=== PATIENT | male | born 1955 | race Caucasian/White ===

== ENCOUNTER 2017-02-08 13:33 | Emergency (ER) | payer OTHER ==
[2017-02-08] MEDS ORDERED: Sodium Chloride 0.9% 1000 ML 1,000 ML IV STA ×4 (13:46→16:18)
[2017-02-08] MEDS ORDERED: Sodium Chloride 0.9% 1000 ML 1,000 ML ONE ×4 (13:48→16:19)
--- NOTE | 2017-02-08 13:49 | ERPHSYRPT ---
- History of Present Illness Time Seen by Provider: 02/08/17 13:38 Historian: patient Exam Limitations: no limitations Physician History: FOR ABOUT THE PAST 3 HOURS PT HAS HAD NAUSEA, DULL SHOULDER AND NECK PAIN; FOR THE PAST 15 MINUTES DULL ANTERIOR CHEST PAIN. FOR THE PAST 2 DAYS PT HAS HAD DIARRHEA. PT DENIES SHORTNESS OF AIR, FEVER, ABDOMINAL PAIN. Aspirin Treatment Today: 325 mg x 1, provided at home Allergies/Adverse Reactions: Sulfa (Sulfonamide Antibiotics) [Sulfa(Sulfonamide Antibiotics)] Allergy ( Unknown, Verified 02/08/17 13:54) Home Medications: Aspirin EC 325 mg [Ecotrin 325 MG] 325 mg PO DAILY 12/27/11 [History] Clopidogrel Bisulfate 75 mg [PLAVIX 75 MG Tablet] 75 mg PO DAILY 12/27/11 [ History] Isosorbide Mononitrate 60 mg [Imdur 60MG] 2 tab PO DAILY 12/27/11 [History] Lisinopril 20 mg PO DAILY 12/27/11 [History] Multivitamin [Multivitamins] 1 each PO DAILY 12/27/11 [History] Nitroglycerin 0.4 mg Tablet [Nitrostat 0.4 MG] 0.4 mg SL DAILY PRN PRN [History] [place]-3 Fatty Acids/Fish Oil [Fish Oil 1,000 mg Capsule] 2 tab PO DAILY [History] Ranitidine HCl [zanTAC 150 MG TABLET] 150 mg PO BID 12/27/11 [History] Sucralfate 1 gm [Carafate 1 GM] 1 gm PO BID 12/27/11 [History] Verapamil HCl [Verapamil ER] 120 mg PO HS 12/27/11 [History] Clonazepam [Klonopin] 0.5 mg PO BID 01/11/13 [History] Isosorbide Mononitrate 60 mg [Imdur 60MG] 60 mg PO HS 01/11/13 [History] Omeprazole 20 MG [Prilosec 20 mg] 20 mg PO DAILY 02/08/17 [History] Tamsulosin HCl 0.4 mg [Flomax 0.4 MG] 0.4 mg PO DAILY 02/08/17 [History] Torsemide 20 mg PO DAILY 02/08/17 [History] Ubidecarenone [Co Q-10] 100 mg PO DAILY 02/08/17 [History] Verapamil HCl Sr 240 mg [Isoptin S.r. 240 mg] 240 mg PO DAILY 02/08/17 [ History] Hx Tetanus, Diphtheria Vaccination/Date Given: Yes Hx Influenza Vaccination/Date Given: No Hx Pneumococcal Vaccination/Date Given: No - Review of Systems Constitutional: No Fever Respiratory: No Dyspnea Cardiac: Chest Pain Abdominal/Gastrointestinal: Nausea, Diarrhea, No Abdominal Pain, No Vomiting Musculoskeletal: Neck Pain, Other (BILATERAL SHOULDER PAIN) Neurological: No Headache Endocrine: No Excessive Sweating All Other Systems: Reviewed and Negative - Past Medical History Pertinent Past Medical History: Yes Neurological History: No Pertinent History ENT History: No Pertinent History Cardiac History: Coronary Artery Disease, High Cholesterol, Hypertension, Myocardial Infarction ([place]) Respiratory History: No Pertinent History Endocrine Medical History: No Pertinent History Musculoskeletal History: Osteoarthritis GI Medical History: GERD History: No Pertinent History Psycho-Social History: Depression Male Reproductive Disorders: No Pertinent History Other Medical History: PT. HAD [place] W/ 6 STENTS ~2006. - Past Surgical History Past Surgical History: Yes Neuro Surgical History: No Pertinent History Cardiac: Cardiac Stent Respiratory: No Pertinent History Gastrointestinal: Cholecystectomy Genitourinary: No Pertinent History Musculoskeletal: No Pertinent History Male Surgical History: No Pertinent History - Social History Smoking Status: Former smoker Exposure to second hand smoke: No Drug Use: none Patient Lives Alone: No - Nursing Vital Signs Nursing Vital Signs: Initial Vital Signs Temperature 97.9 F Temperature Source Oral Pulse Rate [] 89 Pulse Rate 75 Respiratory Rate 18 Blood Pressure [] 100/44 Pain Intensity 0 - Physical Exam General Appearance: alert Eye Exam: PERRL/EOMI Ears, Nose, Throat Exam: pharynx normal Neck Exam: normal inspection Respiratory Exam: lungs clear Cardiovascular Exam: normal heart sounds Gastrointestinal/Abdomen Exam: soft, normal bowel sounds Back Exam: normal range of motion Extremity Exam: pedal edema (+1 BILATERALLY) Neurologic Exam: alert, cooperative Skin Exam: warm, dry - Course Nursing assessment & vital signs reviewed: Yes EKG Interpreted by Me: RATE ([id number]), Sinus Rhythm, Left [place] Deviation, LAFB, NORMAL INTERVALS, Right Bundle Branch Block - Radiology Exams Chest X-ray Interpretation: Discussed w/ radiologist (NONACUTE UNDERINFLATED CHEST.) Ordered Tests: Active Orders 24 hr Category Date Time Status Armature Bander STAT Care 02/08/17 13:46 Active EKG-ER Only STAT Care 02/08/17 13:46 Active IV Insertion STAT Care 02/08/17 13:46 Active IV Insertion-2nd Peripheral STAT Care 02/08/17 14:06 Active Oxygen-ED Only NASAL CANNULA 2 lpm Care 02/08/17 13:46 Active Pulse Oximetry (ED) STAT Care 02/08/17 13:46 Active CHEST 1 VIEW (PORTABLE) Stat Exams 02/08/17 13:47 Completed AMYLASE Stat Lab 02/08/17 13:55 Completed CBC W DIFF Stat Lab 02/08/17 13:55 Completed CMP Stat Lab 02/08/17 13:55 Completed LIPASE Stat Lab 02/08/17 13:55 Completed MAGNESIUM Stat Lab 02/08/17 13:55 Completed PROTIME WITH INR Stat Lab 02/08/17 13:55 Completed PTT Stat Lab 02/08/17 13:55 Completed TROPONIN Q3H Lab 02/08/17 13:55 Completed TROPONIN Q3H Lab 02/08/17 17:00 Ordered TROPONIN Q3H Lab 02/08/17 20:00 Ordered TROPONIN Q3H Lab 02/08/17 23:00 Ordered TROPONIN Q3H Lab 02/09/17 02:00 Ordered UA W/RFX UR CULTURE Stat Lab 02/08/17 13:47 Ordered Medication Summary Generic Name Dose Route Start Last Admin Trade Name Freq PRN Reason Stop Dose Admin Sodium Chloride 1,000 mls @ 999 mls/hr 02/08/17 14:08 02/08/17 14:16 Sodium Chloride 0.9% 1000 Ml IV 02/08/17 15:08 999 mls/hr .Q1H1M STA Administration Discontinued Medications Generic Name Dose Route Start Last Admin Trade Name Freq PRN Reason Stop Dose Admin Sodium Chloride 1,000 mls @ 999 mls/hr 02/08/17 13:46 02/08/17 13:52 Sodium Chloride 0.9% 1000 Ml IV 02/08/17 14:46 999 mls/hr .Q1H1M STA Administration Sodium Chloride Confirm 02/08/17 13:48 Sodium Chloride 0.9% 1000 Ml Administered 02/08/17 13:49 Dose 1,000 mls @ ud .ROUTE .STK-MED ONE Sodium Chloride Confirm 02/08/17 14:07 Sodium Chloride 0.9% 1000 Ml Administered 02/08/17 14:08 Dose 1,000 mls @ .[facility] Lab/Rad Data: Laboratory Result Diagrams 02/08/17 13:55 02/08/17 13:55 Laboratory Results 02/08/17 02/08/17 02/08/17 Range/Units 13:55 13:55 13:55 WBC (4.0-10.5) K/mm3 RBC (4.1-5.6) M/mm3 Hgb (12.5-18.0) gm/dl Hct (42-50) % MCV (78-100) fl MCH (26-32) pg MCHC (32-36) g/dl RDW (11.5-14.0) % Plt Count (150-450) K/mm3 MPV (6-9.5) fl Gran % (36.0-66.0) % Lymphocytes % (24.0-44.0) % Monocytes % (0.0-12.0) % Eosinophils % (0.00-5.0) % Basophils % (0.0-0.4) % Basophils # (0-0.4) INR 1.11 (0.8-3.0) APTT 29.8 (24.1-36.1) SECONDS Sodium 140 (136-145) mEq/L Potassium 4.4 (3.5-5.1) mEq/L Chloride 105 (98-107) mEq/L Carbon Dioxide 26.9 (21-32) mEq/L Anion Gap 12.3 (5-15) MEQ/L BUN 15 (9-20) mg/dL Creatinine 1.77 H (0.55-1.30) mg/dl Estimated GFR 42 ML/MIN Glucose 119 H (70-110) MG/DL Calcium 11.1 H (8.5-10.1) mg/dL Magnesium 1.9 (1.8-2.4) mg/dL Total Bilirubin 0.40 (0.2-1.0) mg/dL AST 32 (15-37) U/L ALT 68 (12-78) U/L Alkaline Phosphatase 125 H (46-116) U/L Troponin I < 0.017 (0.000-0.056) ng/ml Serum Total Protein 7.0 (6.4-8.2) gm/dL Albumin 3.5 (3.4-5.0) g/dL Amylase 37 (25-115) U/L Lipase 105 (73-393) U/L 02/08/17 Range/Units 13:55 WBC 11.2 H (4.0-10.5) K/mm3 RBC 5.78 H (4.1-5.6) M/mm3 Hgb 17.4 (12.5-18.0) gm/dl Hct 50.9 H (42-50) % MCV 88.1 (78-100) fl MCH 30.1 (26-32) pg MCHC 34.2 (32-36) g/dl RDW 14.0 (11.5-14.0) % Plt Count 229 (150-450) K/mm3 MPV 10.4 H (6-9.5) fl Gran % 77.9 H (36.0-66.0) % Lymphocytes % 12.0 L (24.0-44.0) % Monocytes % 7.7 (0.0-12.0) % Eosinophils % 2.0 (0.00-5.0) % Basophils % 0.4 (0.0-0.4) % Basophils # 0.04 (0-0.4) INR (0.8-3.0) APTT (24.1-36.1) SECONDS Sodium (136-145) mEq/L Potassium (3.5-5.1) mEq/L Chloride (98-107) mEq/L Carbon Dioxide (21-32) mEq/L Anion Gap (5-15) MEQ/L BUN (9-20) mg/dL Creatinine (0.55-1.30) mg/dl Estimated GFR ML/MIN Glucose (70-110) MG/DL Calcium (8.5-10.1) mg/dL Magnesium (1.8-2.4) mg/dL Total Bilirubin (0.2-1.0) mg/dL AST (15-37) U/L ALT (12-78) U/L Alkaline Phosphatase (46-116) U/L Troponin I (0.000-0.056) ng/ml Serum Total Protein (6.4-8.2) gm/dL Albumin (3.4-5.0) g/dL Amylase (25-115) U/L Lipase (73-393) U/L - Progress Discussed with : Other (SPOKE WITH DR ARROYO(COVERING SOCIAL SECURITY BENEFITS INTERVIEWER FOR DR RIVERA)([id number]) WHO ACCEPTED PT FOR TRANSFER TO [facility] A DIRECT ADMISSION.) - Departure Time of Disposition: 15:00 Departure Disposition: Transfer ([facility]) Clinical Impression: CHEST PAIN, HTN, CAD, ARTHRITIS, GERD, DEPRESSION Condition: Stable Critical Care Time: No Referrals: ALIREZA MCKEON [Primary Care Provider] -
[2017-02-08 14:04] LABS: BASOPHIL % 0.4 % (0.0-0.4); Granulocytes % 77.9 % (36.0-66.0); Mean Cell Volume 88.1 fl (78-100); Mean Corpuscular Hemoglobin 30.1 pg (26-32); Mean Platelet Volume 10.4 fl (6-9.5); Monocytes % 7.7 % (0.0-12.0); Platelet Count 229 K/mm3 (150-450); Red Blood Count 5.78 M/mm3 (4.1-5.6); White Blood Count 11.2 K/mm3 (4.0-10.5)
[2017-02-08 14:15] LABS: INR 1.11 (0.8-3.0); PROTIME 12.5 SECONDS (8.83-12.87)
[2017-02-08 14:17] LABS: PTT 29.8 SECONDS (24.1-36.1)
[2017-02-08 14:21] LABS: ALBUMIN 3.5 g/dL (3.4-5.0); ANION GAP 12.3 MEQ/L (5-15); BILIRUBIN,TOTAL 0.4 mg/dL (0.2-1.0); Carbon Dioxide 26.9 mEq/L (21-32); MAGNESIUM 1.9 mg/dL (1.8-2.4); Potassium 4.4 mEq/L (3.5-5.1)
--- NOTE | 2017-02-08 14:32 | XRAY ---
Indication: Pain. Comparison: January 11, 2013. Portable apical lordotic chest less inflated today again without focal infiltrate, consolidation, or large effusion. Again scattered calcific granulomas. Heart is not enlarged for AP portable projection. Bony thorax intact. Impression: Nonacute underinflated chest.
[2017-02-08 16:33] VITALS: BP 115/51; PULSE 70; O2SAT 98
== END 2017-02-08 17:03 | disposition short-term general hospital (02) ==
LOC: ED 13:33
DX: R07.9 Chest pain, unspecified (principal); I10 Essential (primary) hypertension; I25.10 Atherosclerotic heart disease of native coronary artery without angina pectoris; M19.90 Unspecified osteoarthritis, unspecified site; K21.9 Gastro-esophageal reflux disease without esophagitis; F32.9 Major depressive disorder, single episode, unspecified; I25.2 Old myocardial infarction
CPT/HCPCS: 36000; 36415; 71010; 80053; 82150; 83690; 83735; 84484; 85025; 85610; 85730; 93005; 93041; 96360; 96361; 96365; 99291

== ENCOUNTER 2017-06-02 12:31 | Emergency (ER) | payer OTHER ==
[2017-06-02] MEDS ORDERED: BABY ASPIRIN 81 MG CHEW PO ONE (13:00)
[2017-06-02] MEDS ORDERED: Sodium Chloride 0.9% 1000 ML 1,000 ML IV SCH (13:00)
[2017-06-02] MEDS ORDERED: NITRO-BID 2% UD PACKETS TOP ONE (13:00)
[2017-06-02] MEDS ORDERED: BABY ASPIRIN 81 MG CHEW ONE (13:01)
[2017-06-02] MEDS ORDERED: NITRO-BID 2% UD PACKETS ONE (13:01)
[2017-06-02 13:05] LABS: BASOPHIL % 0.4 % (0.0-0.4); Eosinophil % 5.2 % (0.00-5.0); Granulocytes % 68.5 % (36.0-66.0); Lymphocytes % 15.4 % (24.0-44.0); Mean Cell Volume 87.7 fl (78-100); Mean Corpuscular Hemoglobin 29.4 pg (26-32); Mean Platelet Volume 10.1 fl (6-9.5); Monocytes % 10.5 % (0.0-12.0); Platelet Count 197 K/mm3 (150-450); Red Blood Count 5.51 M/mm3 (4.1-5.6); Red Cell Distribution Width 13.8 % (11.5-14.0); White Blood Count 8.4 K/mm3 (4.0-10.5)
[2017-06-02] MEDS ORDERED: Sodium Chloride 0.9% 1000 ML 1,000 ML ONE (13:05)
--- NOTE | 2017-06-02 13:07 | ERPHSYRPT ---
- History of Present Illness Time Seen by Provider: 06/02/17 12:35 Historian: patient, family Patient Subjective Stated Complaint: pt here for pain to center of chest since 0900 today with some lightheaded that is now gone, pt has long hx of heart disease Triage Nursing Assessment: pt laert, resp easy, chest clear. skin w/d, edema to lower legs that is normal for her, Physician History: CC: chest pain Hx: 62 y/o patient of Dr Mckeon and [facility] cardiology. He had prior coronary stenting. He was shopping at the [employer] around 9AM and felt dizzy, which has been happening of late. He then began to have chest pain, pressure in anterior chest. Went home. Took one NTG without relief. Came to ER. Not particularly short of breath but has some swelling. No N/V. Not sweating. Takes asa at night. Pain and discomfort moderate. Nitro Today/Relief: 0.4 mg x 1, provided at home, no relief Aspirin Treatment Today: no aspirin today Allergies/Adverse Reactions: Sulfa (Sulfonamide Antibiotics) [Sulfa(Sulfonamide Antibiotics)] Allergy ( Unknown, Verified 06/02/17 12:42) Home Medications: Aspirin EC 325 mg [Ecotrin 325 MG] 325 mg PO DAILY 12/27/11 [History] Clopidogrel Bisulfate 75 mg [PLAVIX 75 MG Tablet] 75 mg PO DAILY 12/27/11 [ History] Isosorbide Mononitrate 60 mg [Imdur 60MG] 2 tab PO DAILY 12/27/11 [History] Lisinopril 20 mg PO DAILY 12/27/11 [History] Nitroglycerin 0.4 mg Tablet [Nitrostat 0.4 MG] 0.4 mg SL DAILY PRN PRN [History] [place]-3 Fatty Acids/Fish Oil [Fish Oil 1,000 mg Capsule] 2 tab PO DAILY [History] Sucralfate 1 gm [Carafate 1 GM] 1 gm PO BID 12/27/11 [History] Verapamil HCl [Verapamil ER] 120 mg PO HS 12/27/11 [History] Clonazepam [Klonopin] 0.5 mg PO BID 01/11/13 [History] Isosorbide Mononitrate 60 mg [Imdur 60MG] 60 mg PO HS 01/11/13 [History] Omeprazole 20 MG [Prilosec 20 mg] 20 mg PO DAILY 02/08/17 [History] Tamsulosin HCl 0.4 mg [Flomax 0.4 MG] 0.4 mg PO DAILY 02/08/17 [History] Torsemide 20 mg PO DAILY 02/08/17 [History] Ubidecarenone [Co Q-10] 100 mg PO DAILY 02/08/17 [History] Verapamil HCl Sr 240 mg [Isoptin S.r. 240 mg] 240 mg PO DAILY 02/08/17 [ History] Multivit,Tx with Iron,Minerals [Complete Multivitamin] 1 ea DAILY 06/02/17 [ History] Ranitidine HCl [Zantac] 150 mg BID 06/02/17 [History] Ropinirole HCl [Requip] 1 mg DAILY 06/02/17 [History] Sucralfate 1 gm [Carafate 1 GM] 1 g BID 06/02/17 [History] Hx Tetanus, Diphtheria Vaccination/Date Given: Yes Hx Influenza Vaccination/Date Given: No Hx Pneumococcal Vaccination/Date Given: No Immunizations Up to Date: Yes - Review of Systems Constitutional: Malaise, Weakness, No Fever, No Chills Eyes: No Symptoms Ears, Nose, & Throat: No Symptoms Respiratory: No Cough, No Dyspnea Cardiac: Chest Pain, Edema, No Syncope Abdominal/Gastrointestinal: No Abdominal Pain, No Nausea, No Vomiting Musculoskeletal: No Back Pain, No Neck Pain Skin: No Rash Neurological: No Headache All Other Systems: Reviewed and Negative - Past Medical History Pertinent Past Medical History: Yes Neurological History: No Pertinent History ENT History: No Pertinent History Cardiac History: Coronary Artery Disease, High Cholesterol, Hypertension, Myocardial Infarction ([place]) Respiratory History: No Pertinent History Endocrine Medical History: No Pertinent History Musculoskeletal History: Osteoarthritis GI Medical History: GERD History: No Pertinent History Psycho-Social History: Depression Male Reproductive Disorders: No Pertinent History Other Medical History: PT. HAD [place] W/ 6 STENTS ~2006. - Past Surgical History Past Surgical History: Yes Neuro Surgical History: No Pertinent History Cardiac: Cardiac Stent Respiratory: No Pertinent History Gastrointestinal: Cholecystectomy Genitourinary: No Pertinent History Musculoskeletal: No Pertinent History Male Surgical History: No Pertinent History - Social History Smoking Status: Former smoker Exposure to second hand smoke: No Drug Use: none Patient Lives Alone: No - Nursing Vital Signs Nursing Vital Signs: Initial Vital Signs Temperature 98.0 F 06/02/17 12:36 Pulse Rate 66 06/02/17 12:36 Respiratory Rate 20 06/02/17 12:36 Blood Pressure 124/65 06/02/17 12:36 O2 Sat by Pulse Oximetry 97 06/02/17 12:36 Pain Scale Pain Intensity 2 - Physical Exam General Appearance: alert, obese, other (pleasant man) Eye Exam: PERRL/EOMI Ears, Nose, Throat Exam: normal ENT inspection, moist mucous membranes Neck Exam: normal inspection, non-tender, supple Respiratory Exam: normal breath sounds Cardiovascular Exam: regular rate/rhythm, edema (trace legs bilateral) Gastrointestinal/Abdomen Exam: soft, No tenderness, No distention Extremity Exam: No calf tenderness Neurologic Exam: alert, 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, cooperative, services rep II-XII nml as tested, sensation nml, No motor deficits Skin Exam: warm, dry, No rash SpO2 Interpretation: normal SpO2: 97 Oxygen Delivery: Room Air - Course Nursing assessment & vital signs reviewed: Yes EKG Interpreted by Me: RATE (70), Sinus Rhythm, NORMAL AXIS, Right Bundle Branch Block (stable from prior) - Radiology Exams cxr X-ray Interpretation: Teleradiologist Report, Negative Ordered Tests: Active Orders 24 hr Category Date Time Status It Risk And Assurance Senior Manager STAT Care 06/02/17 12:56 Active EKG-ER Only STAT Care 06/02/17 12:56 Active IV Insertion STAT Care 06/02/17 12:56 Active Pulse Oximetry (ED) STAT Care 06/02/17 12:56 Active CHEST 1 VIEW (PORTABLE) Stat Exams 06/02/17 12:56 Completed CBC W DIFF Stat Lab 06/02/17 13:01 Completed CMP Stat Lab 06/02/17 13:01 Completed NT PRO BNP Stat Lab 06/02/17 13:01 Completed TROPONIN Q3H Lab 06/02/17 13:01 Completed TROPONIN Q3H Lab 06/02/17 16:00 Ordered TROPONIN Q3H Lab 06/02/17 19:00 Ordered TROPONIN Q3H Lab 06/02/17 22:00 Ordered TROPONIN Q3H Lab 06/03/17 01:00 Ordered Medication Summary Generic Name Dose Route Start Last Admin Trade Name Jesse PRN Reason Stop Dose Admin Sodium Chloride 1,000 mls @ 20 mls/hr 06/02/17 13:00 06/02/17 13:04 Sodium Chloride 0.9% 1000 Ml IV 07/02/17 12:59 20 mls/hr .Q24H ALLYSSA Administration Discontinued Medications Generic Name Dose Route Start Last Admin Trade Name Jesse PRN Reason Stop Dose Admin Aspirin 162 mg 06/02/17 13:00 06/02/17 13:04 Baby Aspirin 81 Mg Chew PO 06/02/17 13:01 81 mg STAT ONE Administration Aspirin Confirm 06/02/17 13:01 Baby Aspirin 81 Mg Chew Administered 06/02/17 13:02 Dose 162 mg .ROUTE .STK-MED ONE Nitroglycerin 1 gm 06/02/17 13:00 06/02/17 13:04 Nitro-Bid 2% Ud Packets TOP 06/02/17 13:01 1 gm STAT ONE Administration Nitroglycerin Confirm 06/02/17 13:01 Nitro-Bid 2% Ud Packets Administered 06/02/17 13:02 Dose 1 gm .ROUTE .STK-MED ONE Lab/Rad Data: Laboratory Result Diagrams 06/02/17 13:01 06/02/17 13:01 Laboratory Results 06/02/17 06/02/17 06/02/17 Range/Units 13:01 13:01 13:01 WBC 8.4 (4.0-10.5) K/mm3 RBC 5.51 (4.1-5.6) M/mm3 Hgb 16.2 (12.5-18.0) gm/dl Hct 48.3 (42-50) % MCV 87.7 (78-100) fl MCH 29.4 (26-32) pg MCHC 33.5 (32-36) g/dl RDW 13.8 (11.5-14.0) % Plt Count 197 (150-450) K/mm3 MPV 10.1 H (6-9.5) fl Gran % 68.5 H (36.0-66.0) % Lymphocytes % 15.4 L (24.0-44.0) % Monocytes % 10.5 (0.0-12.0) % Eosinophils % 5.2 H (0.00-5.0) % Basophils % 0.4 (0.0-0.4) % Basophils # 0.03 (0-0.4) Sodium 137 (136-145) mEq/L Potassium 3.9 (3.5-5.1) mEq/L Chloride 100 (98-107) mEq/L Carbon Dioxide 26.6 (21-32) mEq/L Anion Gap 14.0 (5-15) MEQ/L BUN 23 H (9-20) mg/dL Creatinine 1.01 (0.55-1.30) mg/dl Estimated GFR > 60 ML/MIN Glucose 100 (70-110) MG/DL Calcium 10.5 H (8.5-10.1) mg/dL Total Bilirubin 0.50 (0.2-1.0) mg/dL AST 28 (15-37) U/L ALT 54 (12-78) U/L Alkaline Phosphatase 110 (46-116) U/L Troponin I < 0.017 (0.000-0.056) ng/ml NT-Pro-B Natriuret Pep 40 (0-125) pg/ml Serum Total Protein 6.9 (6.4-8.2) gm/dL Albumin 3.7 (3.4-5.0) g/dL - Progress Progress Note: 06/02/17 14:06 Pain some better with NTG paste. EKS stable. Troponin neg. Pt and request call [facility] cardiology as they see Dr Rocha. Called one call and spoke to [place] [facility] [place]/family regarding: lab results, diagnosis, need for follow-up, rad results - Departure Time of Disposition: 14:07 Departure Disposition: Transfer Clinical Impression: Chest pain, rule out acute myocardial infarction Condition: Stable Critical Care Time: No Referrals: ALIREZA MCKEON [Primary Care Provider] -
--- NOTE | 2017-06-02 13:12 | XRAY ---
Indication: Chest pain. Comparison: February 08, 2017. Portable apical lordotic chest remains clear again with incidental calcified granulomas. Heart is not enlarged for AP portable technique. Bony thorax intact. Impression: Stable nonacute chest.
[2017-06-02 13:39] LABS: ALBUMIN 3.7 g/dL (3.4-5.0); ALKALINE PHOSPHATASE 110 U/L (46-116); BLOOD UREA NITROGEN 23 mg/dL (9-20); CHLORIDE 100 mEq/L (98-107); Carbon Dioxide 26.6 mEq/L (21-32); Glucose 100 MG/DL (70-110); Potassium 3.9 mEq/L (3.5-5.1); SGOT/AST 28 U/L (15-37); SGPT/ALT 54 U/L (12-78); SODIUM 137 mEq/L (136-145); Total Protein 6.9 gm/dL (6.4-8.2)
[2017-06-02 14:04] VITALS: PULSE 62
[2017-06-02 15:25] VITALS: BP 97/48; O2SAT 94
== END 2017-06-02 16:05 | disposition short-term general hospital (02) ==
LOC: ED 12:31
DX: R07.89 Other chest pain (principal); R42 Dizziness and giddiness; Z98.61 Coronary angioplasty status; Z79.899 Other long term (current) drug therapy; I25.10 Atherosclerotic heart disease of native coronary artery without angina pectoris; E78.00 Pure hypercholesterolemia, unspecified
CPT/HCPCS: 36000; 36415; 71010; 80053; 83880; 84484; 85025; 93005; 93041; 99285; A9270-GY

== ENCOUNTER 2018-12-04 15:15 | Emergency (ER) | payer BC ==
--- NOTE | 2018-12-04 15:17 | ERPHSYRPT ---
- History of Present Illness Time Seen by Provider: 12/04/18 15:17 Source: patient, family Exam Limitations: no limitations Physician History: 63 y/o morbidly obese diabetic white male with h/o htn, mi and cadz with [address] on plavix, presents with stroke like sx of greater than 3.5 hours duration when he presented to dr. corey office who then sent pt to us. pt states he could not move his right upper ext at all but since sx began he can now move it but it is weak and numb. noticed pts right leg dragging mildly. Timing/Duration: today, hour(s) (4 hours) Severity: moderate Character of Deficits: new weakness, RLE, RUE Deficits: decrease ability to walk Baseline/Normal Cognition: alert 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 Current Cognition: alert 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 Baseline Gait: walks w/o assistance Associated Symptoms: other (right upper ext and right lower ext weakness) Allergies/Adverse Reactions: Sulfa (Sulfonamide Antibiotics) [Sulfa(Sulfonamide Antibiotics)] Allergy ( Unknown, Verified 12/04/18 15:27) Home Medications: Aspirin EC 325 mg [Ecotrin 325 MG] 325 mg PO DAILY 12/27/11 [History] Clopidogrel Bisulfate 75 mg [PLAVIX 75 MG Tablet] 75 mg PO DAILY 12/27/11 [ History] Isosorbide Mononitrate 60 mg [Imdur 60MG] 2 tab PO DAILY 12/27/11 [History] Lisinopril 20 mg PO DAILY 12/27/11 [History] Nitroglycerin 0.4 mg Tablet [Nitrostat 0.4 MG] 0.4 mg SL DAILY PRN PRN [History] [place]-3 Fatty Acids/Fish Oil [Fish Oil 1,000 mg Capsule] 2 tab PO DAILY [History] Sucralfate 1 gm [Carafate 1 GM] 1 gm PO BID 12/27/11 [History] Verapamil HCl [Verapamil ER] 120 mg PO HS 12/27/11 [History] Clonazepam [Klonopin] 0.5 mg PO BID 01/11/13 [History] Isosorbide Mononitrate 60 mg [Imdur 60MG] 60 mg PO HS 01/11/13 [History] Omeprazole 20 MG [Prilosec 20 mg] 20 mg PO DAILY 02/08/17 [History] Tamsulosin HCl 0.4 mg [Flomax 0.4 MG] 0.4 mg PO DAILY 02/08/17 [History] Torsemide 20 mg PO DAILY 02/08/17 [History] Ubidecarenone [Co Q-10] 100 mg PO DAILY 02/08/17 [History] Verapamil HCl Sr 240 mg [Isoptin S.r. 240 mg] 240 mg PO DAILY 02/08/17 [ History] Multivit,Tx with Iron,Minerals [Complete Multivitamin] 1 ea DAILY 06/02/17 [ History] Ranitidine HCl [Zantac] 150 mg BID 06/02/17 [History] Ropinirole HCl [Requip] 1 mg DAILY 06/02/17 [History] Sucralfate 1 gm [Carafate 1 GM] 1 g BID 06/02/17 [History] Hx Tetanus, Diphtheria Vaccination/Date Given: Yes Hx Influenza Vaccination/Date Given: No Hx Pneumococcal Vaccination/Date Given: No - Review of Systems Constitutional: No Symptoms Eyes: No Symptoms Ears, Nose, & Throat: No Symptoms Respiratory: No Symptoms Cardiac: No Symptoms Abdominal/Gastrointestinal: No Symptoms Genitourinary Symptoms: No Symptoms Musculoskeletal: No Symptoms Skin: No Symptoms Neurological: Gait Changes (mild dragging of right foot), Other (moving all ext. right upper and right lower ext weakness) Psychological: No Symptoms Endocrine: No Symptoms Hematologic/Lymphatic: No Symptoms Immunological/Allergic: No Symptoms All Other Systems: Reviewed and Negative - Past Medical History Pertinent Past Medical History: Yes Neurological History: No Pertinent History ENT History: No Pertinent History Cardiac History: Angina, Hypertension, Myocardial Infarction ([place]) Respiratory History: COPD Endocrine Medical History: Other Musculoskeletal History: Osteoarthritis GI Medical History: GERD History: No Pertinent History Psycho-Social History: Depression Male Reproductive Disorders: No Pertinent History Other Medical History: HEART HX W/ 6 STENTS; [place] 12 YEARS AGO - Past Surgical History Past Surgical History: Yes Neuro Surgical History: No Pertinent History Cardiac: Cardiac Stent Respiratory: No Pertinent History Gastrointestinal: Cholecystectomy Genitourinary: No Pertinent History Musculoskeletal: No Pertinent History Male Surgical History: No Pertinent History - Social History Smoking Status: Former smoker Exposure to second hand smoke: No Drug Use: none Patient Lives Alone: No - Nursing Vital Signs Nursing Vital Signs: Initial Vital Signs Temperature 98.2 F 12/04/18 15:46 Pulse Rate 77 12/04/18 15:46 Respiratory Rate 18 12/04/18 15:46 Blood Pressure 102/67 12/04/18 15:46 O2 Sat by Pulse Oximetry 94 L 12/04/18 15:46 Pain Scale Pain Intensity 6 - Prakash Coma Scale Best Eye Response (Prakash): (4) open spontaneously Best Verbal Response ([place]): (5) oriented Best Motor Response ([place]): (6) obeys commands [place] Total: 15 - Physical Exam General Appearance: no apparent distress, alert Eye Exam: bilateral eye: normal inspection, PERRL, EOMI Ears, Nose, Throat Exam: normal ENT inspection, moist mucous membranes Neck Exam: normal inspection, non-tender, supple, full range of motion Respiratory: normal breath sounds, lungs clear, airway intact, No chest tenderness, No respiratory distress Cardiovascular: regular rate/rhythm, normal heart sounds, normal peripheral pulses Gastrointestinal: soft, normal bowel sounds, No tenderness, No guarding Rectal Exam: not done Back Exam: normal inspection, normal range of motion, No CVA tenderness, No vertebral tenderness Extremity Exam: normal inspection, parasthesia (right upper ext) 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, 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, 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 Exam: normal hearing, normal speech, PERRL, tongue midline, No facial asymmetry, No facial droop, No facial paresthesias, No facial weakness Coordination/Gait: No normal finger to nose (right upper ext slow and inaccurate ) Motor/Sensory: weak motor strength RUE, weak motor strength RLE Skin Exam: normal color, warm, dry SpO2 Interpretation: normal O2 Delivery: Room Air - Course Nursing assessment & vital signs reviewed: Yes EKG Interpreted by Me: RATE (71), Sinus Rhythm, Right Bundle Branch Block, Other (Q1/S111 pattern; prolonged qrs; left ant fascicular block; unchanged from comparison ekg 06/02/17) Ordered Tests: Active Orders 24 hr Category Date Time Status Zone Maintenance Technician STAT Care 12/04/18 15:19 Active EKG-ER Only STAT Care 12/04/18 15:17 Active IV Insertion STAT Care 12/04/18 15:17 Active HEAD WITHOUT CONTRAST [CT] Stat Exams 12/04/18 15:33 Completed CBC W DIFF Stat Lab 12/04/18 15:25 Completed CMP Stat Lab 12/04/18 15:25 Completed PROTIME WITH INR Stat Lab 12/04/18 15:25 Completed Lab/Rad Data: Laboratory Result Diagrams 12/04/18 15:25 12/04/18 15:25 Laboratory Results 12/04/18 12/04/18 12/04/18 Range/Units 15: 15: 15:25 WBC 9.1 (4.0-10.5) K/mm3 RBC 5.36 (4.1-5.6) M/mm3 Hgb 15.5 (12.5-18.0) gm/dl Hct 46.9 (42-50) % MCV 87.5 (78-100) fl MCH 28.9 (26-32) pg MCHC 33.0 (32-36) g/dl RDW 14.7 H (11.5-14.0) % Plt Count 233 (150-450) K/mm3 MPV 10.0 H (6-9.5) fl Gran % 70.3 H (36.0-66.0) % Eos # (Auto) 0.30 (0-0.5) Absolute Lymphs (auto) 1.59 (1.0-4.6) Absolute Monos (auto) 0.74 (0.0-1.3) Lymphocytes % 17.6 L (24.0-44.0) % Monocytes % 8.2 (0.0-12.0) % Eosinophils % 3.3 (0.00-5.0) % Basophils % 0.6 (0.0-0.4) % Absolute Granulocytes 6.37 (1.4-6.9) Basophils # 0.05 (0-0.4) PT 12.8 (8.83-12.87) SECONDS INR 1.10 (0.8-3.0) Sodium 141 (137-145) mmol/L Potassium 4.2 (3.5-5.1) mmol/L Chloride 106 (98-107) mmol/L Carbon Dioxide 27 (22-30) mmol/L Anion Gap 11.2 (5-15) MEQ/L BUN 21 H (9-20) mg/dL Creatinine 1.21 (0.66-1.25) mg/dL Estimated GFR > 60.0 ML/MIN Glucose 96 (74-106) mg/dL Calcium 9.8 (8.4-10.2) mg/dL Total Bilirubin 0.40 (0.2-1.3) mg/dL AST 24 (17-59) U/L ALT 36 (0-50) U/L Alkaline Phosphatase 94 (38-126) U/L Serum Total Protein 7.4 (6.3-8.2) g/dL Albumin 4.0 (3.5-5.0) g/dL - Progress Progress: improved, re-examined Progress Note: 12/04/18 17:23 pts neuro exam has improved during stay here. his sx still persist. spoke with dr. Siddiqui, neurologist at [address] accepts pt in transfer. pt is to go to ED then for CTA head there. Counseled pt/family regarding: lab results, diagnosis, need for follow-up, rad results - Departure Departure Disposition: Transfer Clinical Impression: TIA (transient ischemic attack) Condition: Stable Critical Care Time: Yes Critical Care Time(excluding separately billable procedures): 30-74 minutes Referrals: ALIREZA MCKEON [Primary Care Provider] -
[2018-12-04 15:31] LABS: BASOPHIL % 0.6 % (0.0-0.4); Basophil (Absolute #) 0.05 (0-0.4); Eosinophil % 3.3 % (0.00-5.0); Granulocyte Absolute (ANC) 6.37 (1.4-6.9); Granulocytes % 70.3 % (36.0-66.0); Hematocrit 46.9 % (42-50); Hemoglobin 15.5 gm/dl (12.5-18.0); Lymphocyte (Absolute #) 1.59 (1.0-4.6); Lymphocytes % 17.6 % (24.0-44.0); Mean Cell Volume 87.5 fl (78-100); Mean Corpuscular Hemoglobin 28.9 pg (26-32); Monocyte (Absolute #) 0.74 (0.0-1.3); Monocytes % 8.2 % (0.0-12.0); Platelet Count 233 K/mm3 (150-450); Red Blood Count 5.36 M/mm3 (4.1-5.6); Red Cell Distribution Width 14.7 % (11.5-14.0); White Blood Count 9.1 K/mm3 (4.0-10.5)
[2018-12-04 15:38] LABS: INR 1.1 (0.8-3.0); PROTIME 12.8 SECONDS (8.83-12.87)
[2018-12-04 15:43] LABS: ALKALINE PHOSPHATASE 94 U/L (38-126); ANION GAP 11.2 MEQ/L (5-15); BLOOD UREA NITROGEN 21 mg/dL (9-20); CHLORIDE 106 mmol/L (98-107); Calcium 9.8 mg/dL (8.4-10.2); Carbon Dioxide 27 mmol/L (22-30); Creatinine 1 1.21 mg/dL (0.66-1.25); Glucose 96 mg/dL (74-106); Potassium 4.2 mmol/L (3.5-5.1); SGOT/AST 24 U/L (17-59); SGPT/ALT 36 U/L (0-50); SODIUM 141 mmol/L (137-145); Total Protein 7.4 g/dL (6.3-8.2)
--- NOTE | 2018-12-04 16:04 | XRAY ---
Indication: Unable to move right arm. Possible stroke. Multiple contiguous axial images obtained through the head without contrast. Comparison: November 18, 2015. Stable age-appropriate global atrophy and mild periventricular degenerative micro-ischemia bilaterally. No acute intracranial hemorrhage, abnormal extra-axial fluid collection, or mass effect. Fourth ventricle is midline without hydrocephalus. Bony calvarium intact. Visualized paranasal sinuses and mastoid air cells are clear. Impression: Stable nonacute senile brain. Follow-up CT or MRI may yield further information if there remains further clinical concern. CTDI 67.22
[2018-12-04] MEDS ORDERED: Sodium Chloride 0.9% 1000 ML 1,000 ML IV SCH (17:30)
[2018-12-04] MEDS ORDERED: Sodium Chloride 0.9% 1000 ML 1,000 ML ONE (17:34)
[2018-12-04 17:44] VITALS: O2SAT 97
[2018-12-04 18:36] VITALS: BP 102/67; PULSE 72
== END 2018-12-04 18:36 | disposition short-term general hospital (02) ==
LOC: ED 15:15
DX: G45.9 Transient cerebral ischemic attack, unspecified (principal); I10 Essential (primary) hypertension; R53.1 Weakness; J44.9 Chronic obstructive pulmonary disease, unspecified; K21.9 Gastro-esophageal reflux disease without esophagitis; F32.9 Major depressive disorder, single episode, unspecified; Z79.899 Other long term (current) drug therapy; I25.2 Old myocardial infarction
CPT/HCPCS: 36000; 36415; 70450; 80053; 85025; 85610; 93005; 93041; 96360; 99285; 99291

== ENCOUNTER 2018-12-09 13:52 | Emergency (ER) | payer BC ==
--- NOTE | 2018-12-09 14:04 | ERPHSYRPT ---
- History of Present Illness Time Seen by Provider: 12/09/18 14:01 Source: patient, family Exam Limitations: no limitations Physician History: 63 y/o right handed white male, recently dx with a stroke, presents with right hand pain and swelling. pt seen in this ED on 12/04/18 by me. he was discharged to home from last pm. i recall pt had right hand swelling on the prior visit on 12/04/18. does not specifically recall an injury. Occurred: this morning Method of Injury: unknown Quality: sharpness, stabbing Severity of Pain-Max: mild Severity of Pain-Current: mild Extremities Pain Location: hand: right Modifying Factors: Improves With: movement Associated Symptoms: none Allergies/Adverse Reactions: Sulfa (Sulfonamide Antibiotics) [Sulfa(Sulfonamide Antibiotics)] Allergy ( Unknown, Verified 12/04/18 15:27) Home Medications: Aspirin EC 325 mg [Ecotrin 325 MG] 81 mg PO DAILY 12/27/11 [History] Clopidogrel Bisulfate 75 mg [PLAVIX 75 MG Tablet] 75 mg PO DAILY 12/27/11 [ History] Isosorbide Mononitrate 60 mg [Imdur 60MG] 2 tab PO DAILY 12/27/11 [History] Lisinopril 20 mg PO DAILY 12/27/11 [History] Nitroglycerin 0.4 mg Tablet [Nitrostat 0.4 MG] 0.4 mg SL DAILY PRN PRN [History] [place]-3 Fatty Acids/Fish Oil [Fish Oil 1,000 mg Capsule] 2 tab PO DAILY [History] Sucralfate 1 gm [Carafate 1 GM] 1 gm PO BID 12/27/11 [History] Verapamil HCl [Verapamil ER] 120 mg PO HS 12/27/11 [History] Clonazepam [Klonopin] 0.5 mg PO BID 01/11/13 [History] Isosorbide Mononitrate 60 mg [Imdur 60MG] 60 mg PO HS 01/11/13 [History] Omeprazole 20 MG [Prilosec 20 mg] 20 mg PO DAILY 02/08/17 [History] Tamsulosin HCl 0.4 mg [Flomax 0.4 MG] 0.4 mg PO DAILY 02/08/17 [History] Ubidecarenone [Co Q-10] 100 mg PO DAILY 02/08/17 [History] Verapamil HCl Sr 240 mg [Isoptin S.r. 240 mg] 240 mg PO DAILY 02/08/17 [ History] Multivit,Tx with Iron,Minerals [Complete Multivitamin] 1 ea DAILY 06/02/17 [ History] Ranitidine HCl [Zantac] 150 mg BID 06/02/17 [History] Ropinirole HCl [Requip] 1 mg DAILY 06/02/17 [History] Sucralfate 1 gm [Carafate 1 GM] 1 g BID 06/02/17 [History] Hx Tetanus, Diphtheria Vaccination/Date Given: Yes Hx Influenza Vaccination/Date Given: No Hx Pneumococcal Vaccination/Date Given: No - Review of Systems Constitutional: No Symptoms Eyes: No Symptoms Ears, Nose, & Throat: No Symptoms Respiratory: No Symptoms Cardiac: No Symptoms Abdominal/Gastrointestinal: No Symptoms Genitourinary Symptoms: No Symptoms Musculoskeletal: Other (right hand pain) Skin: No Symptoms Neurological: No Symptoms Psychological: No Symptoms Endocrine: No Symptoms Hematologic/Lymphatic: No Symptoms Immunological/Allergic: No Symptoms All Other Systems: Reviewed and Negative - Past Medical History Pertinent Past Medical History: Yes Neurological History: No Pertinent History ENT History: No Pertinent History Cardiac History: Angina, Hypertension, Myocardial Infarction ([place]) Respiratory History: COPD Endocrine Medical History: Other Musculoskeletal History: Osteoarthritis GI Medical History: GERD History: No Pertinent History Psycho-Social History: Depression Male Reproductive Disorders: No Pertinent History Other Medical History: HEART HX W/ 6 STENTS; [place] 12 YEARS AGO - Past Surgical History Past Surgical History: Yes Neuro Surgical History: No Pertinent History Cardiac: Cardiac Stent Respiratory: No Pertinent History Gastrointestinal: Cholecystectomy Genitourinary: No Pertinent History Musculoskeletal: No Pertinent History Male Surgical History: No Pertinent History - Social History Smoking Status: Former smoker Exposure to second hand smoke: No Drug Use: none Patient Lives Alone: No - Nursing Vital Signs Nursing Vital Signs: Initial Vital Signs Temperature 98.1 F 12/09/18 13:59 Pulse Rate 74 12/09/18 13:59 Respiratory Rate 18 12/09/18 13:59 Blood Pressure 144/89 12/09/18 13:59 O2 Sat by Pulse Oximetry 96 12/09/18 13:59 Pain Scale Pain Intensity 7 - Physical Exam General Appearance: no apparent distress, alert, anxiety Eyes, Ears, Nose, Throat Exam: normal ENT inspection, moist mucous membranes Neck Exam: normal inspection, non-tender, supple, full range of motion Cardiovascular/Respiratory Exam: chest non-tender, normal breath sounds, regular rate/rhythm Abdominal Exam: non-tender Back Exam: normal inspection, normal range of motion, CVA tenderness Shoulder Exam: normal inspection, non-tender, no evidence of injury, normal ROM Elbow/Forearm Exam: normal inspection, non-tender, no evidence of injury, normal ROM Wrist Exam: non-tender, no evidence of injury Hand Exam: no evidence of injury, bone tenderness, limited ROM (but much improved secondary to stroke. localized tenderness to area prox to thenar eminence on right hand), soft tissue tenderness, swelling (very mild. much improved over 5 days ago ), No deformity Neuro/Tendon Exam: normal sensation, normal motor functions, normal tendon functions, responds to pain, no evidence tendon injury Mental Status Exam: alert, 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, cooperative Skin Exam: normal color, warm, dry SpO2 Interpretation: normal O2 Delivery: Room Air Ordered Tests: Active Orders 24 hr Category Date Time Status HAND (MINIMUM 3 VIEWS) Stat Exams 12/09/18 14:17 Taken - Progress Progress: unchanged Progress Note: 12/09/18 15:08 xray right hand-no acute fx or dislocation Counseled pt/family regarding: diagnosis, need for follow-up, rad results - Departure Departure Disposition: Home Clinical Impression: Right hand pain Condition: Stable Critical Care Time: No Referrals: ALIREZA MCKEON [Primary Care Provider] - Additional Instructions: ice pack to area 3 times daily for 3 days. tylenol for pain. follow up with primary doctor for persistent symptoms
[2018-12-09 14:05] VITALS: BP 144/89; PULSE 74; O2SAT 96
--- NOTE | 2018-12-09 21:40 | XRAY ---
Indication: Right hand pain and weakness. No known injury. Comparison: July 26, 2018. 3 views of the right hand again demonstrates mild degenerative changes base of 1st metacarpal. No new/acute bony, articular, or soft tissue abnormalities.
== END 2018-12-09 15:40 | disposition home or self-care (01) ==
LOC: ED 13:52
DX: M79.641 Pain in right hand (principal); I10 Essential (primary) hypertension; Z86.73 Personal history of transient ischemic attack (TIA), and cerebral infarction without residual deficits; M79.89 Other specified soft tissue disorders; Z79.899 Other long term (current) drug therapy; I25.2 Old myocardial infarction; J44.9 Chronic obstructive pulmonary disease, unspecified; M19.90 Unspecified osteoarthritis, unspecified site
CPT/HCPCS: 73130; 99283

== ENCOUNTER 2018-12-22 13:03 | Emergency (ER) | payer BC ==
[2018-12-22] MEDS ORDERED: Sodium Chloride 0.9% 1000 ML 1,000 ML IV SCH (13:15)
[2018-12-22 13:17] LABS: BASOPHIL % 0.5 % (0.0-0.4); Basophil (Absolute #) 0.04 (0-0.4); Eosinophil % 3.3 % (0.00-5.0); Eosinophil (Absolute #) 0.27 (0-0.5); Granulocyte Absolute (ANC) 6.03 (1.4-6.9); Granulocytes % 73.1 % (36.0-66.0); Hematocrit 46.2 % (42-50); Hemoglobin 15.4 gm/dl (12.5-18.0); Lymphocyte (Absolute #) 1.15 (1.0-4.6); Mean Cell Volume 88.2 fl (78-100); Mean Corpuscular Hemoglobin 29.4 pg (26-32); Mean Corpuscular Hgb Concent. 33.3 g/dl (32-36); Mean Platelet Volume 10.3 fl (6-9.5); Monocyte (Absolute #) 0.75 (0.0-1.3); Monocytes % 9.1 % (0.0-12.0); Platelet Count 204 K/mm3 (150-450); Red Blood Count 5.24 M/mm3 (4.1-5.6); Red Cell Distribution Width 14.5 % (11.5-14.0); White Blood Count 8.2 K/mm3 (4.0-10.5)
[2018-12-22] MEDS ORDERED: Sodium Chloride 0.9% 1000 ML 1,000 ML ONE (13:23)
[2018-12-22 13:26] LABS: INR 1.16 (0.8-3.0); PROTIME 13.5 SECONDS (8.83-12.87)
[2018-12-22 13:31] LABS: ALBUMIN 4.1 g/dL (3.5-5.0); ALKALINE PHOSPHATASE 94 U/L (38-126); ANION GAP 11.5 MEQ/L (5-15); BLOOD UREA NITROGEN 19 mg/dL (9-20); CHLORIDE 101 mmol/L (98-107); Calcium 9.4 mg/dL (8.4-10.2); Carbon Dioxide 32 mmol/L (22-30); Creatinine 1 1.26 mg/dL (0.66-1.25); Glucose 91 mg/dL (74-106); Potassium 3.8 mmol/L (3.5-5.1); SGOT/AST 40 U/L (17-59); SGPT/ALT 40 U/L (0-50); SODIUM 140 mmol/L (137-145); Total Protein 7.5 g/dL (6.3-8.2)
--- NOTE | 2018-12-22 13:35 | XRAY ---
Indication: Headache. Right eye blurry. Possible stroke. Multiple contiguous axial images obtained through the head without contrast. Comparison: December 04, 2018. Stable age-appropriate global atrophy and mild periventricular degenerative micro-ischemia bilaterally. No acute intracranial hemorrhage, abnormal extra-axial fluid collection, or mass effect. Fourth ventricle is midline without hydrocephalus. Bony calvarium intact. Visualized paranasal sinuses and mastoid air cells are clear. Impression: Continued stable nonacute senile brain. Follow-up CT or MRI may yield further information if there remains further clinical concern. CTDI 67.41
[2018-12-22] MEDS ORDERED: Zofran 4 MG/2 ML VIAL IV ONE (15:46)
[2018-12-22] MEDS ORDERED: SUBLIMAZE 100 MCG/2 ML IV ONE (15:46)
[2018-12-22] MEDS ORDERED: Zofran 4 MG/2 ML VIAL ONE (15:49)
[2018-12-22] MEDS ORDERED: SUBLIMAZE 100 MCG/2 ML ONE (15:50)
[2018-12-22 16:59] VITALS: PULSE 63; O2SAT 96
[2018-12-22 18:36] VITALS: BP 108/71
--- NOTE | 2018-12-22 18:48 | ERPHSYRPT ---
- History of Present Illness Time Seen by Provider: 12/22/18 16:25 Source: patient Exam Limitations: clinical condition Patient Subjective Stated Complaint: Right eye suddenly when black and couldn't see anything Triage Nursing Assessment: Pt presents to the ER with a stable gait, stated that he suddenly lost vision in his right eye, vision is now back, vitals wnl, denies pain, no defecits noted, hx of TIA's Physician History: PATIENT WITH HISTORY OF MULTIPLE MICRO CEREBRAL INFARCTS, HOSPITALIZED AT [facility] IN ON 11/03/2018 COMPLAINS OF TRANSIENT LOSS OF VISION DURATION OF 10 MINUTES 30 MINUTES PRIOR TO ARRIVAL. HAS SLIGHT HEADACHE. DENIES BLURRED VISION, SLURRED SPEECH, FACIAL DROOP, FOCAL NUMBNESS, WEAKNESS IN EXTREMITIES. Timing/Duration: today Character of Deficits: vision problems Deficits: no difficulties Baseline/Normal Cognition: alert 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 Current Cognition: alert 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 Baseline Gait: walks w/o assistance Associated Symptoms: vision changes Allergies/Adverse Reactions: Sulfa (Sulfonamide Antibiotics) [Sulfa(Sulfonamide Antibiotics)] Allergy ( Unknown, Verified 12/22/18 13:40) Home Medications: Lisinopril 20 mg PO DAILY 12/27/11 [History] Nitroglycerin 0.4 mg Tablet [Nitrostat 0.4 MG] 0.4 mg SL DAILY PRN PRN [History] [place]-3 Fatty Acids/Fish Oil [Fish Oil 1,000 mg Capsule] 1 tab PO DAILY [History] Sucralfate 1 gm [Carafate 1 GM] 1 gm PO BID 12/27/11 [History] Verapamil HCl [Verapamil ER] 120 mg PO HS 12/27/11 [History] Clonazepam [Klonopin] 0.5 mg PO BID 01/11/13 [History] Isosorbide Mononitrate 60 mg [Imdur 60MG] 60 mg PO BID 01/11/13 [History] Omeprazole 20 MG [Prilosec 20 mg] 20 mg PO DAILY 02/08/17 [History] Tamsulosin HCl 0.4 mg [Flomax 0.4 MG] 0.4 mg PO DAILY 02/08/17 [History] Ubidecarenone [Co Q-10] 200 mg PO DAILY 02/08/17 [History] Verapamil HCl Sr 240 mg [Isoptin S.r. 240 mg] 240 mg PO DAILY 02/08/17 [ History] Multivit,Tx with Iron,Minerals [Complete Multivitamin] 1 ea DAILY 06/02/17 [ History] Ranitidine HCl [Zantac] 150 mg BID 06/02/17 [History] Ropinirole HCl [Requip] 1 mg DAILY 06/02/17 [History] Aspirin EC 81 mg [Ecotrin 81 mg] 81 mg PO DAILY 12/22/18 [History] Carvedilol 12.5 mg [Coreg 12.5 mg] 6.5 mg PO BID 12/22/18 [History] Clopidogrel Bisulfate [Clopidogrel] 75 mg PO DAILY 12/22/18 [History] Rosuvastatin Calcium 40 mg PO DAILY 12/22/18 [History] Torsemide 20 mg PO DAILY 12/22/18 [History] Hx Tetanus, Diphtheria Vaccination/Date Given: Yes Hx Influenza Vaccination/Date Given: No Hx Pneumococcal Vaccination/Date Given: No - Review of Systems Constitutional: No Symptoms Eyes: Vision Changes Ears, Nose, & Throat: No Symptoms Respiratory: No Symptoms Cardiac: No Symptoms Abdominal/Gastrointestinal: Constipation Genitourinary Symptoms: No Symptoms Musculoskeletal: No Symptoms Immunological/Allergic: No Symptoms - Past Medical History Pertinent Past Medical History: Yes Neurological History: No Pertinent History, Stroke, TIA ENT History: No Pertinent History Cardiac History: Hypertension, Other Respiratory History: COPD Endocrine Medical History: Other Musculoskeletal History: Osteoarthritis GI Medical History: GERD History: No Pertinent History Psycho-Social History: Depression Male Reproductive Disorders: No Pertinent History Other Medical History: HEART HX W/ 6 STENTS; [place] 12 YEARS AGO - Past Surgical History Past Surgical History: Yes Neuro Surgical History: No Pertinent History Cardiac: Cardiac Stent Respiratory: No Pertinent History Gastrointestinal: Cholecystectomy Genitourinary: No Pertinent History Musculoskeletal: No Pertinent History Male Surgical History: No Pertinent History - Social History Smoking Status: Former smoker Exposure to second hand smoke: Yes Drug Use: none Patient Lives Alone: No - Nursing Vital Signs Nursing Vital Signs: Initial Vital Signs Pulse Rate 69 12/22/18 13:04 Blood Pressure 139/84 12/22/18 13:04 O2 Sat by Pulse Oximetry 96 12/22/18 13:04 Pain Scale Pain Intensity 0 - Prakash Coma Scale Best Eye Response (Prakash): (4) open spontaneously Best Verbal Response (Prakash): (5) oriented Best Motor Response ([place]): (6) obeys commands Prakash Total: 15 - Physical Exam General Appearance: no apparent distress, alert Eye Exam: bilateral eye: PERRL, EOMI, other (FUNDUS DISC FLAT) Ears, Nose, Throat Exam: normal ENT inspection, moist mucous membranes Neck Exam: normal inspection, non-tender, supple Respiratory: normal breath sounds, lungs clear, airway intact, No respiratory distress Cardiovascular: regular rate/rhythm, No edema Back Exam: normal inspection Extremity Exam: normal inspection Peripheral Pulses: carotid (R): 2+, carotid (L): 2+, femoral (R): 2+, femoral (L ): 2+, dorsalis-pedis (R): 2+, dorsalis-pedis (L): 2+ 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, 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 Coordination/Gait: normal finger to nose, normal gait Motor/Sensory: no motor deficit, no sensory deficit (NIH STROKE SCALE 1) SpO2: 96 Ordered Tests: Active Orders 24 hr Category Date Time Status EKG-ER Only STAT Care 12/22/18 13:16 Active NPO (ED) STAT Care 12/22/18 13:07 Active Oxygen-ED Only Nasal Cannula 2 lpm Care 12/22/18 13:07 Active Visual Acuity STAT Care 12/22/18 13:16 Active Tele-Health Consult ROUTINE Cons 12/22/18 14:05 Active HEAD WITHOUT CONTRAST [CT] Stat Exams 12/22/18 13:08 Completed CBC W DIFF Stat Lab 12/22/18 13:07 Completed CMP Stat Lab 12/22/18 13:18 Completed MAGNESIUM Stat Lab 12/22/18 Completed PROTIME WITH INR Stat Lab 12/22/18 13:18 Completed Medication Summary Generic Name Dose Route Start Last Admin Trade Name Freq PRN Reason Stop Dose Admin Sodium Chloride 1,000 mls @ 50 mls/hr 12/22/18 13:15 12/22/18 13:28 Sodium Chloride 0.9% 1000 Ml IV 01/21/19 13:14 50 mls/hr .Q20H ALLYSSA Administration Discontinued Medications Generic Name Dose Route Start Last Admin Trade Name Freq PRN Reason Stop Dose Admin Fentanyl Citrate 50 mcg 12/22/18 15:46 12/22/18 15:51 Sublimaze 100 Mcg/2 Ml IV 12/22/18 15:47 50 mcg STAT ONE Administration Fentanyl Citrate Confirm 12/22/18 15:50 Sublimaze 100 Mcg/2 Ml Administered 12/22/18 15:51 Dose 100 mcg .ROUTE .STK-MED ONE Ondansetron HCl 4 mg 12/22/18 15:46 12/22/18 15:52 Zofran 4 Mg/2 Ml Vial IV 12/22/18 15:47 4 mg STAT ONE Administration Ondansetron HCl Confirm 12/22/18 15:49 Zofran 4 Mg/2 Ml Vial Administered 12/22/18 15:50 Dose 4 mg .ROUTE .STK-MED ONE Lab/Rad Data: Laboratory Result Diagrams 12/22/18 13:07 12/22/18 13:18 Laboratory Results 12/22/18 12/22/18 12/22/18 Range/Units Unknown 13:18 13:18 WBC (4.0-10.5) K/mm3 RBC (4.1-5.6) M/mm3 Hgb (12.5-18.0) gm/dl Hct (42-50) % MCV (78-100) fl MCH (26-32) pg MCHC (32-36) g/dl RDW (11.5-14.0) % Plt Count (150-450) K/mm3 MPV (6-9.5) fl Gran % (36.0-66.0) % Eos # (Auto) (0-0.5) Absolute Lymphs (auto) (1.0-4.6) Absolute Monos (auto) (0.0-1.3) Lymphocytes % (24.0-44.0) % Monocytes % (0.0-12.0) % Eosinophils % (0.00-5.0) % Basophils % (0.0-0.4) % Absolute Granulocytes (1.4-6.9) Basophils # (0-0.4) PT 13.5 H (8.83-12.87) SECONDS INR 1.16 (0.8-3.0) Sodium 140 (137-145) mmol/L Potassium 3.8 (3.5-5.1) mmol/L Chloride 101 (98-107) mmol/L Carbon Dioxide 32 H (22-30) mmol/L Anion Gap 11.5 (5-15) MEQ/L BUN 19 (9-20) mg/dL Creatinine 1.26 H (0.66-1.25) mg/dL Estimated GFR > 60.0 ML/MIN Glucose 91 (74-106) mg/dL Calcium 9.4 (8.4-10.2) mg/dL Magnesium 1.9 (1.6-2.3) mg/dL Total Bilirubin 0.60 (0.2-1.3) mg/dL AST 40 (17-59) U/L ALT 40 (0-50) U/L Alkaline Phosphatase 94 (38-126) U/L Serum Total Protein 7.5 (6.3-8.2) g/dL Albumin 4.1 (3.5-5.0) g/dL 12/22/18 Range/Units 13:07 WBC 8.2 (4.0-10.5) K/mm3 RBC 5.24 (4.1-5.6) M/mm3 Hgb 15.4 (12.5-18.0) gm/dl Hct 46.2 (42-50) % MCV 88.2 (78-100) fl MCH 29.4 (26-32) pg MCHC 33.3 (32-36) g/dl RDW 14.5 H (11.5-14.0) % Plt Count 204 (150-450) K/mm3 MPV 10.3 H (6-9.5) fl Gran % 73.1 H (36.0-66.0) % Eos # (Auto) 0.27 (0-0.5) Absolute Lymphs (auto) 1.15 (1.0-4.6) Absolute Monos (auto) 0.75 (0.0-1.3) Lymphocytes % 14.0 L (24.0-44.0) % Monocytes % 9.1 (0.0-12.0) % Eosinophils % 3.3 (0.00-5.0) % Basophils % 0.5 (0.0-0.4) % Absolute Granulocytes 6.03 (1.4-6.9) Basophils # 0.04 (0-0.4) PT (8.83-12.87) SECONDS INR (0.8-3.0) Sodium (137-145) mmol/L Potassium (3.5-5.1) mmol/L Chloride (98-107) mmol/L Carbon Dioxide (22-30) mmol/L Anion Gap (5-15) MEQ/L BUN (9-20) mg/dL Creatinine (0.66-1.25) mg/dL Estimated GFR ML/MIN Glucose (74-106) mg/dL Calcium (8.4-10.2) mg/dL Magnesium (1.6-2.3) mg/dL Total Bilirubin (0.2-1.3) mg/dL AST (17-59) U/L ALT (0-50) U/L Alkaline Phosphatase (38-126) U/L Serum Total Protein (6.3-8.2) g/dL Albumin (3.5-5.0) g/dL - Progress Discussed with .: Other (DISCUSSED WITH DR WADE AT 1520 ACCEPTS TRANSFER TO [facility]IA [facility]) - Departure Departure Disposition: Transfer Clinical Impression: TRANSIENT ISCHEMIC ATTACK Condition: Stable Critical Care Time: No Referrals: ALIREZA MCKEON [Primary Care Provider] -
== END 2018-12-22 18:59 | disposition short-term general hospital (02) ==
LOC: ED 13:03
DX: G45.9 Transient cerebral ischemic attack, unspecified (principal)
CPT/HCPCS: 36415; 70450; 80053; 83735; 85025; 85610; 93005; 96374; 96375; 99285; J2405; J3010

== ENCOUNTER 2019-01-04 11:03 | Emergency (ER) | payer BC ==
[2019-01-04] MEDS ORDERED: TYLENOL EXTRA STRENGTH 500 MG PO STA (11:29)
--- NOTE | 2019-01-04 11:33 | ERPHSYRPT ---
- History of Present Illness Time Seen by Provider: 01/04/19 11:29 Source: patient Exam Limitations: no limitations Patient Subjective Stated Complaint: headache x 1 hours. no n/v feels like sinuses.. has had a stroke December 04 affecting his left side. Triage Nursing Assessment: alert and ambulatory to room..staes pain in head x 1 hour. pain is across his forehead.staes had residul defecits to the right side.. 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 has had a stroke December 04.states feel l breezy sinus problems. tylenol with no relief. Physician History: mild throbbing frontal headache gradual today since 9am, no new visual disturbance, no NV, no injury, no fever, speech fluent, recent cva with residual right side weakness Allergies/Adverse Reactions: Sulfa (Sulfonamide Antibiotics) [Sulfa(Sulfonamide Antibiotics)] Allergy ( Unknown, Verified 01/04/19 11:26) Home Medications: Lisinopril 20 mg PO DAILY 12/27/11 [History] Nitroglycerin 0.4 mg Tablet [Nitrostat 0.4 MG] 0.4 mg SL DAILY PRN PRN [History] [place]-3 Fatty Acids/Fish Oil [Fish Oil 1,000 mg Capsule] 1 tab PO DAILY [History] Sucralfate 1 gm [Carafate 1 GM] 1 gm PO BID 12/27/11 [History] Verapamil HCl [Verapamil ER] 120 mg PO HS 12/27/11 [History] Clonazepam [Klonopin] 0.5 mg PO BID 01/11/13 [History] Isosorbide Mononitrate 60 mg [Imdur 60MG] 60 mg PO BID 01/11/13 [History] Omeprazole 20 MG [Prilosec 20 mg] 20 mg PO DAILY 02/08/17 [History] Tamsulosin HCl 0.4 mg [Flomax 0.4 MG] 0.4 mg PO DAILY 02/08/17 [History] Ubidecarenone [Co Q-10] 200 mg PO DAILY 02/08/17 [History] Verapamil HCl Sr 240 mg [Isoptin S.r. 240 mg] 240 mg PO DAILY 02/08/17 [ History] Multivit,Tx with Iron,Minerals [Complete Multivitamin] 1 ea DAILY 06/02/17 [ History] Ranitidine HCl [Zantac] 150 mg BID 06/02/17 [History] Ropinirole HCl [Requip] 1 mg DAILY 06/02/17 [History] Aspirin EC 81 mg [Ecotrin 81 mg] 81 mg PO DAILY 12/22/18 [History] Carvedilol 12.5 mg [Coreg 12.5 mg] 6.5 mg PO BID 12/22/18 [History] Clopidogrel Bisulfate [Clopidogrel] 75 mg PO DAILY 12/22/18 [History] Rosuvastatin Calcium 40 mg PO DAILY 12/22/18 [History] Torsemide 20 mg PO DAILY 12/22/18 [History] Hx Tetanus, Diphtheria Vaccination/Date Given: Yes Hx Influenza Vaccination/Date Given: No Hx Pneumococcal Vaccination/Date Given: No Immunizations Up to Date: Yes - Review of Systems Constitutional: No Fever Eyes: No Eye Redness Ears, Nose, & Throat: No Ear Pain Respiratory: No Dyspnea Cardiac: No Chest Pain Abdominal/Gastrointestinal: No Abdominal Pain Genitourinary Symptoms: No Dysuria Musculoskeletal: No Back Pain, No Neck Pain, No Fall Skin: No Rash Neurological: Headache, No Dizziness - Past Medical History Pertinent Past Medical History: Yes Neurological History: No Pertinent History, Stroke, TIA ENT History: No Pertinent History Cardiac History: Hypertension, Other Respiratory History: COPD Endocrine Medical History: Other Musculoskeletal History: Osteoarthritis GI Medical History: GERD History: No Pertinent History Psycho-Social History: Depression Male Reproductive Disorders: No Pertinent History Other Medical History: HEART HX W/ 6 STENTS; [place] 12 YEARS AGO - Past Surgical History Past Surgical History: Yes Neuro Surgical History: No Pertinent History Cardiac: Cardiac Stent Respiratory: No Pertinent History Gastrointestinal: Cholecystectomy Genitourinary: No Pertinent History Musculoskeletal: No Pertinent History Male Surgical History: No Pertinent History - Social History Smoking Status: Never smoker Exposure to second hand smoke: No Drug Use: marijuana Patient Lives Alone: No - Nursing Vital Signs Nursing Vital Signs: Initial Vital Signs Temperature 97.8 F 01/04/19 11:04 Pulse Rate 85 01/04/19 11:04 Respiratory Rate 18 01/04/19 11:04 Blood Pressure 146/90 01/04/19 11:04 O2 Sat by Pulse Oximetry 95 05/16/19 11:04 Pain Scale Pain Intensity 4 - Physical Exam General Appearance: no apparent distress Eye Exam: PERRL/EOMI Ears, Nose, Throat Exam: moist mucous membranes Neck Exam: normal inspection Respiratory Exam: normal breath sounds Cardiovascular Exam: regular rate/rhythm Gastrointestinal/Abdominal Exam: soft, No tenderness Back Exam: normal inspection Extremity Exam: normal inspection Mental Status 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, 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, 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: 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 hearing, normal speech, PERRL Motor/Sensory Exam: weak motor strength RUE Skin Exam: warm, dry SpO2 Interpretation: normal SpO2: 95 - Course Nursing assessment & vital signs reviewed: Yes EKG Interpreted by Me: Sinus Rhythm, Other (rbbb and pvc's as 12/22/18, no stemi) - CT Exams Head CT Interpretation: Negative, Discussed w/radiologist Ordered Tests: Active Orders 24 hr Category Date Time Status EKG-ER Only STAT Care 01/04/19 11:28 Active NPO (ED) STAT Care 01/04/19 11:28 Active HEAD WITHOUT CONTRAST [CT] Stat Exams 01/04/19 11:28 Completed CBC W DIFF Stat Lab 01/04/19 11:45 Completed CMP Stat Lab 01/04/19 11:45 Completed PROTIME WITH INR Stat Lab 01/04/19 11:45 Completed Medication Summary Discontinued Medications Generic Name Dose Route Start Last Admin Trade Name Jesse PRN Reason Stop Dose Admin Acetaminophen 1,000 mg 01/04/19 11:29 01/04/19 11:52 Tylenol Extra Strength 500 Mg PO 01/04/19 11:30 1,000 mg STAT STA Administration Acetaminophen Confirm 01/04/19 11:46 Tylenol Extra Strength 500 Mg Administered 01/04/19 11:47 Dose 1,000 mg .ROUTE [employer]MED ONE Lab/Rad Data: Laboratory Result Diagrams 01/04/19 11:45 01/04/19 11:45 Laboratory Results 01/04/19 01/04/19 01/04/19 Range/Units 11:45 11:45 11:45 WBC 7.6 (4.0-10.5) K/mm3 RBC 4.91 (4.1-5.6) M/mm3 Hgb 14.5 (12.5-18.0) gm/dl Hct 43.1 (42-50) % MCV 87.8 (78-100) fl MCH 29.5 (26-32) pg MCHC 33.6 (32-36) g/dl RDW 14.4 H (11.5-14.0) % Plt Count 182 (150-450) K/mm3 MPV 9.6 H (6-9.5) fl Gran % 73.7 H (36.0-66.0) % Eos # (Auto) 0.30 (0-0.5) Absolute Lymphs (auto) 1.02 (1.0-4.6) Absolute Monos (auto) 0.64 (0.0-1.3) Lymphocytes % 13.5 L (24.0-44.0) % Monocytes % 8.5 (0.0-12.0) % Eosinophils % 4.0 (0.00-5.0) % Basophils % 0.3 (0.0-0.4) % Absolute Granulocytes 5.59 (1.4-6.9) Basophils # 0.02 (0-0.4) PT 13.7 H (8.83-12.87) SECONDS INR 1.18 (0.8-3.0) Sodium 140 (137-145) mmol/L Potassium 3.7 (3.5-5.1) mmol/L Chloride 104 (98-107) mmol/L Carbon Dioxide 26 (22-30) mmol/L Anion Gap 13.5 (5-15) MEQ/L BUN 19 (9-20) mg/dL Creatinine 1.16 (0.66-1.25) mg/dL Estimated GFR > 60.0 ML/MIN Glucose 102 (74-106) mg/dL Calcium 8.9 (8.4-10.2) mg/dL Total Bilirubin 0.60 (0.2-1.3) mg/dL AST 42 (17-59) U/L ALT 39 (0-50) U/L Alkaline Phosphatase 99 (38-126) U/L Serum Total Protein 7.0 (6.3-8.2) g/dL Albumin 4.0 (3.5-5.0) g/dL - Progress Progress: improved Progress Note: 01/04/19 12:43 pt alert and 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, nad, refused diagnostic spinal tap to exclude a brain bleed or infection, continue tylenol, see your doctor, return at anytime Counseled pt/family regarding: lab results, diagnosis, need for follow-up, rad results - Departure Departure Disposition: Home Clinical Impression: Headache Qualifiers: Headache type: unspecified Headache chronicity pattern: unspecified pattern Intractability: not intractable Qualified Code(s): R51 - Headache Condition: Stable Critical Care Time: No Referrals: ALIREZA MCKEON [Primary Care Provider] - Instructions: Headache, Adult (DC)
[2019-01-04] MEDS ORDERED: TYLENOL EXTRA STRENGTH 500 MG ONE (11:46)
[2019-01-04 11:57] LABS: BASOPHIL % 0.3 % (0.0-0.4); Basophil (Absolute #) 0.02 (0-0.4); Granulocyte Absolute (ANC) 5.59 (1.4-6.9); Granulocytes % 73.7 % (36.0-66.0); Hematocrit 43.1 % (42-50); Hemoglobin 14.5 gm/dl (12.5-18.0); Lymphocyte (Absolute #) 1.02 (1.0-4.6); Lymphocytes % 13.5 % (24.0-44.0); Mean Cell Volume 87.8 fl (78-100); Mean Corpuscular Hemoglobin 29.5 pg (26-32); Mean Corpuscular Hgb Concent. 33.6 g/dl (32-36); Mean Platelet Volume 9.6 fl (6-9.5); Monocyte (Absolute #) 0.64 (0.0-1.3); Monocytes % 8.5 % (0.0-12.0); Platelet Count 182 K/mm3 (150-450); Red Blood Count 4.91 M/mm3 (4.1-5.6); Red Cell Distribution Width 14.4 % (11.5-14.0); White Blood Count 7.6 K/mm3 (4.0-10.5)
[2019-01-04 12:09] LABS: ALKALINE PHOSPHATASE 99 U/L (38-126); ANION GAP 13.5 MEQ/L (5-15); BLOOD UREA NITROGEN 19 mg/dL (9-20); CHLORIDE 104 mmol/L (98-107); Calcium 8.9 mg/dL (8.4-10.2); Carbon Dioxide 26 mmol/L (22-30); Creatinine 1 1.16 mg/dL (0.66-1.25); Glucose 102 mg/dL (74-106); Potassium 3.7 mmol/L (3.5-5.1); SGOT/AST 42 U/L (17-59); SGPT/ALT 39 U/L (0-50); SODIUM 140 mmol/L (137-145)
--- NOTE | 2019-01-04 12:15 | XRAY ---
Indication: Headache. History stroke. Multiple contiguous axial images obtained through the head without contrast. Comparison: December 04 and December 22, 2018. Stable age-appropriate global atrophy and mild periventricular degenerative micro-ischemia bilaterally. Again no acute intracranial hemorrhage, abnormal extra-axial fluid collection, or mass effect. Fourth ventricle is midline without hydrocephalus. Bony calvarium intact. Visualized paranasal sinuses and mastoid air cells are clear. Impression: Continued stable nonacute senile brain. Follow-up CT or MRI may yield further information if there remains further clinical concern. CT DI 71.08
[2019-01-04 12:16] LABS: INR 1.18 (0.8-3.0); PROTIME 13.7 SECONDS (8.83-12.87)
[2019-01-04 12:17] VITALS: BP 133/78; PULSE 65
[2019-01-04 12:46] VITALS: O2SAT 95
== END 2019-01-04 12:54 | disposition home or self-care (01) ==
LOC: ED 11:03
DX: R51 Headache (principal)
CPT/HCPCS: 36415; 70450; 80053; 85025; 85610; 93005; 99283; A9270-GY

== ENCOUNTER 2019-02-05 11:45 | Emergency (ER) | payer BC ==
[2019-02-05] MEDS ORDERED: BABY ASPIRIN 81 MG CHEW PO ONE (11:46)
[2019-02-05] MEDS ORDERED: Nitrostat 0.4 MG (ED) SL ONE ×2 (11:46→12:29)
--- NOTE | 2019-02-05 11:53 | ERPHSYRPT ---
- History of Present Illness Time Seen by Provider: 02/05/19 11:48 Historian: patient Exam Limitations: no limitations Physician History: 64 y/o obese white male with h/o htn and sig cadz including 6 cardiac stents placed in the past, presents with 2 to 3 day h/o sharp substernal cp with numbness left upper ext. pt recently dx with cva. 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 Timing/Duration: day(s) (2 to 3) Activities at Onset: none Quality: sharpness, stabbing Location: substernal Chest Pain Radiation: arm (left) Severity of Pain-Max: mild Severity of Pain-Current: mild Modifying Factors: Improves With: nothing Associated Symptoms: denies symptoms, No nausea, No vomiting, No shortness of breath Prior Chest Pain/Cardiac Workup: cardiac cath, recently seen/treated Nitro Today/Relief: no nitro taken today Aspirin Treatment Today: no aspirin today Allergies/Adverse Reactions: Sulfa (Sulfonamide Antibiotics) [Sulfa(Sulfonamide Antibiotics)] Allergy ( Unknown, Verified 02/05/19 11:56) Home Medications: Lisinopril 20 mg PO DAILY 12/27/11 [History] Nitroglycerin 0.4 mg Tablet [Nitrostat 0.4 MG] 0.4 mg SL DAILY PRN PRN [History] [place]-3 Fatty Acids/Fish Oil [Fish Oil 1,000 mg Capsule] 1 tab PO DAILY [History] Sucralfate 1 gm [Carafate 1 GM] 1 gm PO BID 12/27/11 [History] Verapamil HCl [Verapamil ER] 120 mg PO HS 12/27/11 [History] Clonazepam [Klonopin] 0.5 mg PO BID 01/11/13 [History] Isosorbide Mononitrate 60 mg [Imdur 60MG] 60 mg PO BID 01/11/13 [History] Omeprazole 20 MG [Prilosec 20 mg] 20 mg PO DAILY 02/08/17 [History] Tamsulosin HCl 0.4 mg [Flomax 0.4 MG] 0.4 mg PO DAILY 02/08/17 [History] Ubidecarenone [Co Q-10] 200 mg PO DAILY 02/08/17 [History] Verapamil HCl Sr 240 mg [Isoptin S.r. 240 mg] 240 mg PO DAILY 02/08/17 [ History] Multivit,Tx with Iron,Minerals [Complete Multivitamin] 1 ea DAILY 06/02/17 [ History] Ropinirole HCl [Requip] 1 mg DAILY 06/02/17 [History] raNITIdine HCl [Zantac] 150 mg BID 06/02/17 [History] Aspirin EC 81 mg [Ecotrin 81 mg] 81 mg PO DAILY 12/22/18 [History] Carvedilol 12.5 mg [Coreg 12.5 mg] 6.5 mg PO BID 12/22/18 [History] Clopidogrel Bisulfate [Clopidogrel] 75 mg PO DAILY 12/22/18 [History] Rosuvastatin Calcium 40 mg PO DAILY 12/22/18 [History] Torsemide 20 mg PO DAILY 12/22/18 [History] Hx Tetanus, Diphtheria Vaccination/Date Given: Yes Hx Influenza Vaccination/Date Given: No Hx Pneumococcal Vaccination/Date Given: No - Review of Systems Constitutional: No Symptoms Eyes: No Symptoms Ears, Nose, & Throat: No Symptoms Respiratory: No Symptoms Cardiac: Chest Pain Abdominal/Gastrointestinal: No Symptoms Genitourinary Symptoms: No Symptoms Musculoskeletal: No Symptoms Skin: No Symptoms Neurological: No Symptoms Psychological: No Symptoms Endocrine: No Symptoms Hematologic/Lymphatic: No Symptoms Immunological/Allergic: No Symptoms All Other Systems: Reviewed and Negative - Past Medical History Pertinent Past Medical History: Yes Neurological History: No Pertinent History, Stroke, TIA ENT History: No Pertinent History Cardiac History: Hypertension, Other Respiratory History: COPD Endocrine Medical History: Other Musculoskeletal History: Osteoarthritis GI Medical History: GERD History: No Pertinent History Psycho-Social History: Depression Male Reproductive Disorders: No Pertinent History Other Medical History: HEART HX W/ 6 STENTS; [place] 12 YEARS AGO - Past Surgical History Past Surgical History: Yes Neuro Surgical History: No Pertinent History Cardiac: Cardiac Stent Respiratory: No Pertinent History Gastrointestinal: Cholecystectomy Genitourinary: No Pertinent History Musculoskeletal: No Pertinent History Male Surgical History: No Pertinent History - Social History Smoking Status: Never smoker Exposure to second hand smoke: No Drug Use: marijuana Patient Lives Alone: No - Nursing Vital Signs Nursing Vital Signs: Initial Vital Signs Temperature 98.0 F 02/05/19 11:46 Pulse Rate 70 02/05/19 11:46 Respiratory Rate 18 02/05/19 11:46 Blood Pressure 115/64 02/05/19 11:46 O2 Sat by Pulse Oximetry 77 L 02/05/19 11:46 Pain Scale Pain Intensity 0 - Physical Exam General Appearance: no apparent distress, alert, anxiety Eye Exam: PERRL/EOMI, eyes nml inspection Ears, Nose, Throat Exam: normal ENT inspection, moist mucous membranes Neck Exam: normal inspection, non-tender, supple, full range of motion Respiratory Exam: normal breath sounds, chest tenderness, lungs clear, airway intact, No respiratory distress Cardiovascular Exam: regular rate/rhythm, normal heart sounds, normal peripheral pulses Gastrointestinal/Abdomen Exam: soft, normal bowel sounds, No tenderness Rectal Exam: not done Back Exam: normal inspection, normal range of motion, No CVA tenderness, No vertebral tenderness Extremity Exam: normal inspection, normal range of motion, pelvis stable Neurologic Exam: alert, 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, cooperative, 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 otherwise no change from ekg dated 01/04/19) Ordered Tests: Active Orders 24 hr Category Date Time Status Custom Designer STAT Care 02/05/19 11:47 Active EKG-ER Only STAT Care 02/05/19 11:46 Active IV Insertion STAT Care 02/05/19 11:46 Active Pulse Oximetry (ED) STAT Care 02/05/19 11:46 Active CHEST 1 VIEW (PORTABLE) Stat Exams 02/05/19 11:59 Completed CBC W DIFF Stat Lab 02/05/19 11:50 Completed CMP Stat Lab 02/05/19 11:50 Completed D-DIMER QUANTITATION Stat Lab 02/05/19 11:50 Completed NT PRO BNP Stat Lab 02/05/19 11:50 Completed PROTIME WITH INR Stat Lab 02/05/19 11:50 Completed TROPONIN Q3H Lab 02/05/19 11:50 Completed TROPONIN Q3H Lab 02/05/19 14:55 Completed TROPONIN Q3H Lab 02/05/19 18:00 Ordered TROPONIN Q3H Lab 02/05/19 21:00 Ordered TROPONIN Q3H Lab 02/06/19 00:00 Ordered Medication Summary Generic Name Dose Route Start Last Admin Trade Name Jesse PRN Reason Stop Dose Admin Sodium Chloride 1,000 mls @ 50 mls/hr 02/05/19 12:00 02/05/19 12:33 Sodium Chloride 0.9% 1000 Ml IV 03/07/19 11:59 50 mls/hr .Q20H ALLYSSA Administration Discontinued Medications Generic Name Dose Route Start Last Admin Trade Name Jesse PRN Reason Stop Dose Admin Aspirin 324 mg 02/05/19 11:46 02/05/19 12:31 Baby Aspirin 81 Mg Chew PO 02/05/19 11:47 324 mg STAT ONE Administration Aspirin Confirm 02/05/19 12:29 Baby Aspirin 81 Mg Chew Administered 02/05/19 12:30 Dose 324 mg .ROUTE .STK-MED ONE Nitroglycerin 0.4 mg 02/05/19 11:46 02/05/19 12:30 Nitrostat 0.4 Mg (Ed) SL 02/05/19 11:47 0.4 mg STAT ONE Administration Nitroglycerin Confirm 02/05/19 12:29 Nitrostat 0.4 Mg (Ed) Administered 02/05/19 12:30 Dose 0.4 mg SL .STK-MED ONE Lab/Rad Data: Laboratory Result Diagrams 02/05/19 11:50 02/05/19 11:50 Laboratory Results 02/05/19 02/05/19 02/05/19 Range/Units 14:55 11:50 11:50 WBC (4.0-10.5) K/mm3 RBC (4.1-5.6) M/mm3 Hgb (12.5-18.0) gm/dl Hct (42-50) % MCV (78-100) fl MCH (26-32) pg MCHC (32-36) g/dl RDW (11.5-14.0) % Plt Count (150-450) K/mm3 MPV (6-9.5) fl Gran % (36.0-66.0) % Eos # (Auto) (0-0.5) Absolute Lymphs (auto) (1.0-4.6) Absolute Monos (auto) (0.0-1.3) Lymphocytes % (24.0-44.0) % Monocytes % (0.0-12.0) % Eosinophils % (0.00-5.0) % Basophils % (0.0-0.4) % Absolute Granulocytes (1.4-6.9) Basophils # (0-0.4) PT 11.9 (8.83-12.87) SECONDS INR 1.05 (0.8-3.0) D-Dimer 597 H* (215-500) ng/mL Sodium (137-145) mmol/L Potassium (3.5-5.1) mmol/L Chloride (98-107) mmol/L Carbon Dioxide (22-30) mmol/L Anion Gap (5-15) MEQ/L BUN (9-20) mg/dL Creatinine (0.66-1.25) mg/dL Estimated GFR ML/MIN Glucose (74-106) mg/dL Calcium (8.4-10.2) mg/dL Total Bilirubin (0.2-1.3) mg/dL AST (17-59) U/L ALT (0-50) U/L Alkaline Phosphatase (38-126) U/L Troponin I < 0.012 < 0.012 (0.000-0.034) ng/mL NT-Pro-B Natriuret Pep (0-900) pg/mL Serum Total Protein (6.3-8.2) g/dL Albumin (3.5-5.0) g/dL 02/05/19 02/05/19 Range/Units 11:50 11:50 WBC 8.9 (4.0-10.5) K/mm3 RBC 5.46 (4.1-5.6) M/mm3 Hgb 16.2 (12.5-18.0) gm/dl Hct 48.7 (42-50) % MCV 89.2 (78-100) fl MCH 29.7 (26-32) pg MCHC 33.3 (32-36) g/dl RDW 14.1 H (11.5-14.0) % Plt Count 202 (150-450) K/mm3 MPV 10.3 H (6-9.5) fl Gran % 76.3 H (36.0-66.0) % Eos # (Auto) 0.22 (0-0.5) Absolute Lymphs (auto) 1.14 (1.0-4.6) Absolute Monos (auto) 0.71 (0.0-1.3) Lymphocytes % 12.9 L (24.0-44.0) % Monocytes % 8.0 (0.0-12.0) % Eosinophils % 2.5 (0.00-5.0) % Basophils % 0.3 (0.0-0.4) % Absolute Granulocytes 6.77 (1.4-6.9) Basophils # 0.03 (0-0.4) PT (8.83-12.87) SECONDS INR (0.8-3.0) D-Dimer (215-500) ng/mL Sodium 140 (137-145) mmol/L Potassium 4.1 (3.5-5.1) mmol/L Chloride 105 (98-107) mmol/L Carbon Dioxide 27 (22-30) mmol/L Anion Gap 13.0 (5-15) MEQ/L BUN 16 (9-20) mg/dL Creatinine 0.98 (0.66-1.25) mg/dL Estimated GFR > 60.0 ML/MIN Glucose 102 (74-106) mg/dL Calcium 9.5 (8.4-10.2) mg/dL Total Bilirubin 0.40 (0.2-1.3) mg/dL AST 33 (17-59) U/L ALT 39 (0-50) U/L Alkaline Phosphatase 98 (38-126) U/L Troponin I (0.000-0.034) ng/mL NT-Pro-B Natriuret Pep 266 (0-900) pg/mL Serum Total Protein 7.5 (6.3-8.2) g/dL Albumin 4.1 (3.5-5.0) g/dL - Progress Progress: improved, re-examined Progress Note: 02/05/19 15:52 denies cp. pt sleeping prior to reexamination 02/05/19 15:53 cxr-no acute process Blood Culture(s) Obtained: No Antibiotics given: No Counseled pt/family regarding: lab results, diagnosis, need for follow-up, rad results - Departure Departure Disposition: Home Clinical Impression: Chest pain Condition: Stable Critical Care Time: No Referrals: ALIREZA MCKEON [Primary Care Provider] - Additional Instructions: call your braille typist, primary doctor and your neurologist today to arrange follow up appointment
[2019-02-05] MEDS ORDERED: Sodium Chloride 0.9% 1000 ML 1,000 ML IV SCH (12:00)
[2019-02-05 12:06] LABS: BASOPHIL % 0.3 % (0.0-0.4); Basophil (Absolute #) 0.03 (0-0.4); Eosinophil % 2.5 % (0.00-5.0); Eosinophil (Absolute #) 0.22 (0-0.5); Granulocyte Absolute (ANC) 6.77 (1.4-6.9); Granulocytes % 76.3 % (36.0-66.0); Hematocrit 48.7 % (42-50); Hemoglobin 16.2 gm/dl (12.5-18.0); Lymphocyte (Absolute #) 1.14 (1.0-4.6); Lymphocytes % 12.9 % (24.0-44.0); Mean Cell Volume 89.2 fl (78-100); Mean Corpuscular Hemoglobin 29.7 pg (26-32); Mean Corpuscular Hgb Concent. 33.3 g/dl (32-36); Mean Platelet Volume 10.3 fl (6-9.5); Platelet Count 202 K/mm3 (150-450); Red Blood Count 5.46 M/mm3 (4.1-5.6); Red Cell Distribution Width 14.1 % (11.5-14.0); White Blood Count 8.9 K/mm3 (4.0-10.5)
[2019-02-05 12:08] LABS: INR 1.05 (0.8-3.0); PROTIME 11.9 SECONDS (8.83-12.87)
--- NOTE | 2019-02-05 12:15 | XRAY ---
Indication: Chest pain. Comparison: May 12, 2018. Portable apical lordotic chest less inflated and remains clear. Heart is not enlarged for AP portable technique. Bony thorax intact again with mild degenerative changes. Impression: Nonacute chest.
[2019-02-05 12:18] LABS: ALBUMIN 4.1 g/dL (3.5-5.0); ALKALINE PHOSPHATASE 98 U/L (38-126); BLOOD UREA NITROGEN 16 mg/dL (9-20); CHLORIDE 105 mmol/L (98-107); Calcium 9.5 mg/dL (8.4-10.2); Carbon Dioxide 27 mmol/L (22-30); Creatinine 1 0.98 mg/dL (0.66-1.25); Glucose 102 mg/dL (74-106); NT PRO BNP 266 pg/mL (0-900); Potassium 4.1 mmol/L (3.5-5.1); SGOT/AST 33 U/L (17-59); SGPT/ALT 39 U/L (0-50); SODIUM 140 mmol/L (137-145); Total Protein 7.5 g/dL (6.3-8.2)
[2019-02-05] MEDS ORDERED: BABY ASPIRIN 81 MG CHEW ONE (12:29)
[2019-02-05] MEDS ORDERED: Sodium Chloride 0.9% 1000 ML 1,000 ML ONE (12:32)
[2019-02-05 15:42] VITALS: O2SAT 98
[2019-02-05 16:09] VITALS: BP 115/86; PULSE 68
== END 2019-02-05 16:13 | disposition home or self-care (01) ==
LOC: ED 11:45
DX: R07.89 Other chest pain (principal)
CPT/HCPCS: 36000; 36415; 71045; 80053; 83880; 84484; 85025; 85379; 85610; 93005; 93041; 96360; 96361; 96374; 99284; A9270-GY

== ENCOUNTER 2019-06-27 17:33 | Emergency (ER) | payer BC ==
--- NOTE | 2019-06-27 17:49 | ERPHSYRPT ---
- History of Present Illness Time Seen by Provider: 06/27/19 17:40 Historian: patient Exam Limitations: no limitations Patient Subjective Stated Complaint: PT states "I have not been feeling well all day. I have had chest pain all day and some nausea." Triage Nursing Assessment: PT presented alert and oriented X 3, skin pwd Pt ambulates with an upright steady gait, able to speak in clear full sentences. pt in no apparent respiratory distress. Physician History: Patient has not felt well the entire day, has had chest discomfort without any radiation, and upset stomach but no nausea or vomiting. Patient has not been evaluated prior to coming into the emergency department. Timing/Duration: hour(s) (8), gradual onset Activities at Onset: none Quality: aching Chest Pain Radiation: no radiation Severity of Pain-Max: mild Severity of Pain-Current: mild Modifying Factors: Improves With: nothing Associated Symptoms: No nausea, No vomiting, No palpitations, No abdominal pain , No shortness of breath, No cough, No hurts to breathe, No diaphoresis, No chills, No fever, No fatigue, No weakness, No swelling/lump in chest, No syncope , No rash, No headache, No dizziness, No edema, No back pain Prior Chest Pain/Cardiac Workup: cardiac cath (6 stents placed), heart attack ( 12 years ago) Nitro Today/Relief: no nitro taken today Aspirin Treatment Today: no aspirin today Allergies/Adverse Reactions: Sulfa (Sulfonamide Antibiotics) [Sulfa(Sulfonamide Antibiotics)] Allergy ( Unknown, Verified 02/05/19 11:56) Home Medications: Lisinopril 20 mg PO DAILY 12/27/11 [History] Nitroglycerin 0.4 mg Tablet [Nitrostat 0.4 MG] 0.4 mg SL DAILY PRN PRN [History] Hammond-3 Fatty Acids/Fish Oil [Fish Oil 1,000 mg Capsule] 1 tab PO DAILY [History] Sucralfate 1 gm [Carafate 1 GM] 1 gm PO BID 12/27/11 [History] Verapamil HCl [Verapamil ER] 120 mg PO HS 12/27/11 [History] Clonazepam [Klonopin] 0.5 mg PO BID 01/11/13 [History] Isosorbide Mononitrate 60 mg [Imdur 60MG] 60 mg PO BID 01/11/13 [History] Omeprazole 20 MG [Prilosec 20 mg] 20 mg PO DAILY 02/08/17 [History] Tamsulosin HCl 0.4 mg [Flomax 0.4 MG] 0.4 mg PO DAILY 02/08/17 [History] Ubidecarenone [Co Q-10] 200 mg PO DAILY 02/08/17 [History] Verapamil HCl Sr 240 mg [Isoptin S.r. 240 mg] 240 mg PO DAILY 02/08/17 [ History] Multivit,Tx with Iron,Minerals [Complete Multivitamin] 1 ea DAILY 06/02/17 [ History] Ropinirole HCl [Requip] 1 mg DAILY 06/02/17 [History] raNITIdine HCl [Zantac] 150 mg BID 06/02/17 [History] Aspirin EC 81 mg [Ecotrin 81 mg] 81 mg PO DAILY 12/22/18 [History] Carvedilol 12.5 mg [Coreg 12.5 mg] 6.5 mg PO BID 12/22/18 [History] Clopidogrel Bisulfate [Clopidogrel] 75 mg PO DAILY 12/22/18 [History] Rosuvastatin Calcium 40 mg PO DAILY 12/22/18 [History] Torsemide 20 mg PO DAILY 12/22/18 [History] Hx Tetanus, Diphtheria Vaccination/Date Given: Yes Hx Influenza Vaccination/Date Given: No Hx Pneumococcal Vaccination/Date Given: No Immunizations Up to Date: Yes - Review of Systems Constitutional: No Fever, No Chills, No Fatigue Eyes: No Eye Pain, No Vision Changes Ears, Nose, & Throat: No Mouth Pain, No Mouth Swelling, No Throat Pain, No Painful Swallowing Respiratory: No Cough, No Dyspnea Cardiac: Chest Pain, No Palpitations, No Syncope Abdominal/Gastrointestinal: No Abdominal Pain, No Nausea, No Vomiting, No Hematochezia, No Melena Genitourinary Symptoms: No Dysuria, No Frequency, No Hematuria, No Flank Pain Musculoskeletal: No Back Pain, No Neck Pain, No Myalgias Skin: No Pruritis, No Rash Neurological: No Focal Weakness, No Paralysis Psychological: No Anxiety Endocrine: No Polydipsia, No Excessive Sweating Hematologic/Lymphatic: No Easy Bleeding, No Easy Bruising All Other Systems: Reviewed and Negative - Past Medical History Pertinent Past Medical History: Yes Neurological History: No Pertinent History, Stroke, TIA ENT History: No Pertinent History Cardiac History: Hypertension, Other Respiratory History: COPD Endocrine Medical History: Other Musculoskeletal History: Osteoarthritis GI Medical History: GERD History: No Pertinent History Psycho-Social History: Depression Male Reproductive Disorders: No Pertinent History Other Medical History: HEART HX W/ 6 STENTS; [place] 12 YEARS AGO - Past Surgical History Past Surgical History: Yes Neuro Surgical History: No Pertinent History Cardiac: Cardiac Stent Respiratory: No Pertinent History Gastrointestinal: Cholecystectomy Genitourinary: No Pertinent History Musculoskeletal: No Pertinent History Male Surgical History: No Pertinent History - Social History Smoking Status: Never smoker Exposure to second hand smoke: No Drug Use: marijuana Patient Lives Alone: No - Nursing Vital Signs Nursing Vital Signs: Initial Vital Signs Temperature 97.7 F 06/27/19 17:34 Pulse Rate 70 06/27/19 17:34 Blood Pressure 151/94 06/27/19 17:34 O2 Sat by Pulse Oximetry 96 06/27/19 17:34 Pain Scale Pain Intensity 0 - Physical Exam General Appearance: no apparent distress, alert Eye Exam: PERRL/EOMI, eyes nml inspection, No scleral icterus, No pale conjunctivae Ears, Nose, Throat Exam: normal ENT inspection, TMs normal, pharynx normal, moist mucous membranes Neck Exam: normal inspection, non-tender, supple, full range of motion, No meningismus, No Brudzinski, No limited range of motion Respiratory Exam: normal breath sounds, lungs clear, airway intact, No chest tenderness, No respiratory distress, No prolonged expirations, No crackles/rales , No rhonchi, No wheezing, No stridor Cardiovascular Exam: regular rate/rhythm, normal heart sounds, normal peripheral pulses, capillary refill <2 sec Gastrointestinal/Abdomen Exam: soft, normal bowel sounds, No tenderness, No distention, No guarding, No rebound Back Exam: normal inspection, normal range of motion, No CVA tenderness, No vertebral tenderness, No rash Extremity Exam: normal inspection, normal range of motion, pelvis stable, No calf tenderness, No gisell's sign, No pedal edema, No swelling Neurologic Exam: alert, 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, cooperative, communications director II-XII nml as tested, normal mood/affect, sensation nml, No motor weakness, No facial droop Skin Exam: normal color, warm, dry, No rash, No petechiae, No jaundice, No cyanosis SpO2 Interpretation: normal SpO2: 96 O2 Delivery: Room Air - Course Nursing assessment & vital signs reviewed: Yes EKG Interpreted by Me: RATE (68), Sinus Rhythm, LAFB, NORMAL INTERVALS, Right Bundle Branch Block, NORMAL ST-T, Other (rrare PVC; no appreciable change in comparison to EKG from ) - Radiology Exams Chest X-ray Interpretation: Interpreted by me, Reviewed by me, No Fracture, No Pneumonia, No Pneumothorax, Nml Heart Size, No Infiltrates, Nml Mediastinum, Other (LL atelectasis) Ordered Tests: Active Orders 24 hr Category Date Time Status Auger Supervisor STAT Care 06/27/19 17:54 Active EKG-ER Only STAT Care 06/27/19 17:53 Active IV Insertion STAT Care 06/27/19 17:53 Active Pulse Oximetry (ED) STAT Care 06/27/19 17:53 Active CHEST 1 VIEW (PORTABLE) Stat Exams 06/27/19 17:54 Taken AMYLASE Stat Lab 06/27/19 18:13 Completed CBC W DIFF Stat Lab 06/27/19 18:13 Completed CK-Creatinine Phosphokinase Stat Lab 06/27/19 18:13 Completed CMP Stat Lab 06/27/19 18:13 Completed LIPASE Stat Lab 06/27/19 18:13 Completed Lactic Acid Stat Lab 06/27/19 17:55 Completed MAGNESIUM Stat Lab 06/27/19 18:13 Completed NT PRO BNP Stat Lab 06/27/19 18:13 Completed PROTIME WITH INR Stat Lab 06/27/19 18:13 Completed PTT Stat Lab 06/27/19 18:13 Completed TROPONIN Q3H Lab 06/27/19 18:13 Completed TROPONIN Q3H Lab 06/27/19 21:00 Ordered TROPONIN Q3H Lab 06/28/19 00:00 Ordered TROPONIN Q3H Lab 06/28/19 03:00 Ordered TROPONIN Q3H Lab 06/28/19 06:00 Ordered UA W/RFX UR CULTURE Stat Lab 06/27/19 18:56 Completed VENOUS BLOOD GAS Stat Lab 06/27/19 17:55 Completed Medication Summary Discontinued Medications Generic Name Dose Route Start Last Admin Trade Name Freq PRN Reason Stop Dose Admin Aspirin 324 mg 11/06/19 17:53 06/27/19 18:04 Baby Aspirin 81 Mg Chew PO 06/27/19 17:54 324 mg STAT ONE Administration Aspirin Confirm 06/27/19 18:03 Baby Aspirin 81 Mg Chew Administered 06/27/19 18:04 Dose 324 mg .ROUTE .STK-MED ONE Famotidine 20 mg 06/27/19 17:53 06/27/19 18:04 Pepcid 20 Mg Vial IV 06/27/19 17:54 20 mg STAT ONE Administration Famotidine Confirm 06/27/19 18:03 Pepcid 20 Mg Vial Administered 06/27/19 18:04 Dose 20 mg IV .STK-MED ONE Sodium Chloride 1,000 mls @ 999 mls/hr 06/27/19 17:53 06/27/19 19:08 Sodium Chloride 0.9% 1000 Ml IV 06/27/19 18:53 Infused .Q1H1M STA Infusion Sodium Chloride Confirm 06/27/19 18:03 Sodium Chloride 0.9% 1000 Ml Administered 06/27/19 18:04 Dose 1,000 mls @ ud .ROUTE .STK-MED ONE Lab/Rad Data: Laboratory Result Diagrams 06/27/19 18:13 06/27/19 18:13 Laboratory Results 06/27/19 06/27/19 06/27/19 Range/Units 18:56 18:13 18:13 WBC (4.0-10.5) K/mm3 RBC (4.1-5.6) M/mm3 Hgb (12.5-18.0) gm/dl Hct (42-50) % MCV (78-100) fl MCH (26-32) pg MCHC (32-36) g/dl RDW (11.5-14.0) % Plt Count (150-450) K/mm3 MPV (6-9.5) fl Gran % (36.0-66.0) % Eos # (Auto) (0-0.5) Absolute Lymphs (auto) (1.0-4.6) Absolute Monos (auto) (0.0-1.3) Lymphocytes % (24.0-44.0) % Monocytes % (0.0-12.0) % Eosinophils % (0.00-5.0) % Basophils % (0.0-0.4) % Absolute Granulocytes (1.4-6.9) Basophils # (0-0.4) PT (8.83-12.87) SECONDS INR (0.8-3.0) APTT (24.1-36.1) SECONDS pO2/FiO2 Ratio % VBG pH (7.32-7.42) VBG pCO2 at Pat Temp (42-55) mm/Hg VBG pO2 at Pat Temp (25-40) mm/Hg VBG HCO3 (22-28) meq/L VBG O2 Sat (Mattie) (95-100) VBG Base Excess (-2.0-2.0) VBG Hemoglobin VBG Carboxyhemoglobin (0.0-6.9) % T HGB POC Potassium (3.5-5.1) Sodium (137-145) mmol/L Potassium (3.5-5.1) mmol/L Chloride (98-107) mmol/L Carbon Dioxide (22-30) mmol/L Anion Gap (5-15) MEQ/L BUN (9-20) mg/dL Creatinine (0.66-1.25) mg/dL Estimated GFR ML/MIN Glucose (74-106) mg/dL Lactic Acid (0.4-2.0) Calcium (8.4-10.2) mg/dL Magnesium (1.6-2.3) mg/dL Total Bilirubin (0.2-1.3) mg/dL AST (17-59) U/L ALT (0-50) U/L Alkaline Phosphatase (38-126) U/L Creatine Kinase (55-170) U/L Troponin I < 0.012 (0.000-0.034) ng/mL NT-Pro-B Natriuret Pep (0-900) pg/mL Serum Total Protein (6.3-8.2) g/dL Albumin (3.5-5.0) g/dL Amylase 63 (30-110) U/L Lipase 76 (23-300) U/L Urine Color STRAW (YELLOW) Urine Appearance CLEAR (CLEAR) Urine pH 6.0 (5-6) Ur Specific [place] 1.006 (1.005-1.025) Urine Protein NEGATIVE (Negative) Urine Ketones NEGATIVE (NEGATIVE) Urine Blood NEGATIVE (0-5) Carson/ul Urine Nitrite NEGATIVE (NEGATIVE) Urine Bilirubin NEGATIVE (NEGATIVE) Urine Urobilinogen NEGATIVE (0-1) mg/dL Ur Leukocyte Esterase NEGATIVE (NEGATIVE) Urine WBC (Auto) NONE (0-5) /HPF Urine RBC (Auto) NONE (0-2) /HPF U Epithel Cells (Auto) NONE (FEW) /HPF Urine Bacteria (Auto) NONE (NEGATIVE) /HPF Urine Mucus (Auto) SLIGHT (NEGATIVE) /HPF Urine Culture Reflexed NO (NO) Urine Glucose NEGATIVE (NEGATIVE) mg/dL 06/27/19 06/27/19 06/27/19 Range/Units 18:13 18:13 18:13 WBC (4.0-10.5) K/mm3 RBC (4.1-5.6) M/mm3 Hgb (12.5-18.0) gm/dl Hct (42-50) % MCV (78-100) fl MCH (26-32) pg MCHC (32-36) g/dl RDW (11.5-14.0) % Plt Count (150-450) K/mm3 MPV (6-9.5) fl Gran % (36.0-66.0) % Eos # (Auto) (0-0.5) Absolute Lymphs (auto) (1.0-4.6) Absolute Monos (auto) (0.0-1.3) Lymphocytes % (24.0-44.0) % Monocytes % (0.0-12.0) % Eosinophils % (0.00-5.0) % Basophils % (0.0-0.4) % Absolute Granulocytes (1.4-6.9) Basophils # (0-0.4) PT 13.8 H (8.83-12.87) SECONDS INR 1.22 (0.8-3.0) APTT 30.4 (24.1-36.1) SECONDS pO2/FiO2 Ratio % VBG pH (7.32-7.42) VBG pCO2 at Pat Temp (42-55) mm/Hg VBG pO2 at Pat Temp (25-40) mm/Hg VBG HCO3 (22-28) meq/L VBG O2 Sat (Mattie) (95-100) VBG Base Excess (-2.0-2.0) VBG Hemoglobin VBG Carboxyhemoglobin (0.0-6.9) % T HGB POC Potassium (3.5-5.1) Sodium 142 (137-145) mmol/L Potassium 3.6 (3.5-5.1) mmol/L Chloride 99 (98-107) mmol/L Carbon Dioxide 34 H (22-30) mmol/L Anion Gap 12.0 (5-15) MEQ/L BUN 19 (9-20) mg/dL Creatinine 1.18 (0.66-1.25) mg/dL Estimated GFR > 60.0 ML/MIN Glucose 114 H (74-106) mg/dL Lactic Acid (0.4-2.0) Calcium 9.1 (8.4-10.2) mg/dL Magnesium 2.0 (1.6-2.3) mg/dL Total Bilirubin 0.50 (0.2-1.3) mg/dL AST 35 (17-59) U/L ALT 29 (0-50) U/L Alkaline Phosphatase 92 (38-126) U/L Creatine Kinase 75 (55-170) U/L Troponin I (0.000-0.034) ng/mL NT-Pro-B Natriuret Pep 104 (0-900) pg/mL Serum Total Protein 7.5 (6.3-8.2) g/dL Albumin 4.1 (3.5-5.0) g/dL Amylase (30-110) U/L Lipase (23-300) U/L Urine Color (YELLOW) Urine Appearance (CLEAR) Urine pH (5-6) Ur Specific [place] (1.005-1.025) Urine Protein (Negative) Urine Ketones (NEGATIVE) Urine Blood (0-5) Carson/ul Urine Nitrite (NEGATIVE) Urine Bilirubin (NEGATIVE) Urine Urobilinogen (0-1) mg/dL Ur Leukocyte Esterase (NEGATIVE) Urine WBC (Auto) (0-5) /HPF Urine RBC (Auto) (0-2) /HPF U Epithel Cells (Auto) (FEW) /HPF Urine Bacteria (Auto) (NEGATIVE) /HPF Urine Mucus (Auto) (NEGATIVE) /HPF Urine Culture Reflexed (NO) Urine Glucose (NEGATIVE) mg/dL 06/27/19 06/27/19 06/27/19 Range/Units 18:13 17:55 17:55 WBC 8.6 (4.0-10.5) K/mm3 RBC 5.35 (4.1-5.6) M/mm3 Hgb 15.0 (12.5-18.0) gm/dl Hct 46.3 (42-50) % MCV 86.5 (78-100) fl MCH 28.0 (26-32) pg MCHC 32.4 (32-36) g/dl RDW 14.4 H (11.5-14.0) % Plt Count 197 (150-450) K/mm3 MPV 10.6 H (6-9.5) fl Gran % 72.8 H (36.0-66.0) % Eos # (Auto) 0.28 (0-0.5) Absolute Lymphs (auto) 1.26 (1.0-4.6) Absolute Monos (auto) 0.79 (0.0-1.3) Lymphocytes % 14.6 L (24.0-44.0) % Monocytes % 9.2 (0.0-12.0) % Eosinophils % 3.2 (0.00-5.0) % Basophils % 0.2 (0.0-0.4) % Absolute Granulocytes 6.28 (1.4-6.9) Basophils # 0.02 (0-0.4) PT (8.83-12.87) SECONDS INR (0.8-3.0) APTT (24.1-36.1) SECONDS pO2/FiO2 Ratio 21.0 % VBG pH 7.38 (7.32-7.42) VBG pCO2 at Pat Temp 58 H (42-55) mm/Hg VBG pO2 at Pat Temp 27 (25-40) mm/Hg VBG HCO3 34.3 H* (22-28) meq/L VBG O2 Sat (Mattie) 55.8 L (95-100) VBG Base Excess 7.0 H (-2.0-2.0) VBG Hemoglobin 15.2 VBG Carboxyhemoglobin 2.7 (0.0-6.9) % T HGB POC Potassium 3.5 (3.5-5.1) Sodium (137-145) mmol/L Potassium (3.5-5.1) mmol/L Chloride (98-107) mmol/L Carbon Dioxide (22-30) mmol/L Anion Gap (5-15) MEQ/L BUN (9-20) mg/dL Creatinine (0.66-1.25) mg/dL Estimated GFR ML/MIN Glucose (74-106) mg/dL Lactic Acid 0.9 (0.4-2.0) Calcium (8.4-10.2) mg/dL Magnesium (1.6-2.3) mg/dL Total Bilirubin (0.2-1.3) mg/dL AST (17-59) U/L ALT (0-50) U/L Alkaline Phosphatase (38-126) U/L Creatine Kinase (55-170) U/L Troponin I (0.000-0.034) ng/mL NT-Pro-B Natriuret Pep (0-900) pg/mL Serum Total Protein (6.3-8.2) g/dL Albumin (3.5-5.0) g/dL Amylase (30-110) U/L Lipase (23-300) U/L Urine Color (YELLOW) Urine Appearance (CLEAR) Urine pH (5-6) Ur Specific [place] (1.005-1.025) Urine Protein (Negative) Urine Ketones (NEGATIVE) Urine Blood (0-5) Carson/ul Urine Nitrite (NEGATIVE) Urine Bilirubin (NEGATIVE) Urine Urobilinogen (0-1) mg/dL Ur Leukocyte Esterase (NEGATIVE) Urine WBC (Auto) (0-5) /HPF Urine RBC (Auto) (0-2) /HPF U Epithel Cells (Auto) (FEW) /HPF Urine Bacteria (Auto) (NEGATIVE) /HPF Urine Mucus (Auto) (NEGATIVE) /HPF Urine Culture Reflexed (NO) Urine Glucose (NEGATIVE) mg/dL - Progress Progress: re-examined Air Movement: good Progress Note: 06/27/19 19:10 Patient is currently asymptomatic. 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 06/27/19 20:02 Patient is chest pain free and would like to be discharged to home. Sinus rhythm throughout most of his time on the key punch operator with occasional PVCs. 06/27/19 20:22 Discussed the patient's presentation, EKG, lab results and chest x-ray with his duration of symptoms with Dr Cheema, Cardiology, form [facility] in [place], [place]. Dr Cheema states patient may be discharged home wwith a negative troponin and atypical chest pain symptoms have resolved at this time and followup in the office in the morning of 06/28/2019 he'll try to get an urgent appointment on 06/28/2019. Blood Culture(s) Obtained: No Antibiotics given: No Discussed with Dr.: Other (@ 19:55, spoke with Dr Mckeon, patient's physician. Dr Mckeon would like discussion with his skin toggler before discharging home since she does not see this patient very often.) Counseled pt/family regarding: lab results, diagnosis, need for follow-up, rad results - Departure Departure Disposition: Home Clinical Impression: Chest discomfort, Malaise Hypertension Qualifiers: Hypertension type: essential hypertension Qualified Code(s): I10 - Essential ( primary) hypertension Condition: Good Critical Care Time: No Referrals: ALIREZA MCKEON [Primary Care Provider] - 06/28/19 DEL RIVERA [NON-STAFF PHY W/O PRIVILEGES] - 06/28/19 Instructions: Fatigue (DC), High Blood Pressure (DC), Chest Pain (DC) Additional Instructions: Return immediately back to the emergency room if any worsening or change in chest pain, shortness of breath, new fever, new cough, no abdominal pain, any back pain, new focal weakness, new loss of sensation, change in speech or any other concerning signs or symptoms that were not present at today's emergency department visit for immediate reevaluation in the emergency department. Plan of Treatment: Follow-up with your Minister Helper in the am of 06/28/2019 for further evaluation and management
[2019-06-27] MEDS ORDERED: BABY ASPIRIN 81 MG CHEW PO ONE (17:53)
[2019-06-27] MEDS ORDERED: Sodium Chloride 0.9% 1000 ML 1,000 ML IV STA (17:53)
[2019-06-27] MEDS ORDERED: Pepcid 20 MG VIAL IV ONE ×2 (17:53→18:03)
[2019-06-27] MEDS ORDERED: BABY ASPIRIN 81 MG CHEW ONE (18:03)
[2019-06-27] MEDS ORDERED: Sodium Chloride 0.9% 1000 ML 1,000 ML ONE (18:03)
[2019-06-27 18:11] LABS: VBG CARBOXYHEMOGLOBIN 2.7 % T HGB (0.0-6.9); VBG HCO3- 34.3 meq/L (22-28); VBG HEMOGLOBIN 15.2; VBG O2 SATURATION 55.8 (95-100); VBG POTASSIUM 3.5 (3.5-5.1); VBG pH 7.38 (7.32-7.42)
[2019-06-27 18:15] LABS: Absolute Neutrophil Ct (ANC) 6.28 (1.4-6.9); BASOPHIL % 0.2 % (0.0-0.4); Basophil (Absolute #) 0.02 (0-0.4); Eosinophil % 3.2 % (0.00-5.0); Eosinophil (Absolute #) 0.28 (0-0.5); Hematocrit 46.3 % (42-50); Lymphocyte (Absolute #) 1.26 (1.0-4.6); Lymphocytes % 14.6 % (24.0-44.0); Mean Cell Volume 86.5 fl (78-100); Mean Corpuscular Hgb Concent. 32.4 g/dl (32-36); Mean Platelet Volume 10.6 fl (6-9.5); Monocyte (Absolute #) 0.79 (0.0-1.3); Monocytes % 9.2 % (0.0-12.0); Neutrophil % 72.8 % (36.0-66.0); Platelet Count 197 K/mm3 (150-450); Red Blood Count 5.35 M/mm3 (4.1-5.6); Red Cell Distribution Width 14.4 % (11.5-14.0); White Blood Count 8.6 K/mm3 (4.0-10.5)
[2019-06-27 18:30] LABS: AMYLASE 63 U/L (30-110); LIPASE 76 U/L (23-300)
[2019-06-27 18:38] LABS: ALBUMIN 4.1 g/dL (3.5-5.0); ALKALINE PHOSPHATASE 92 U/L (38-126); BLOOD UREA NITROGEN 19 mg/dL (9-20); CHLORIDE 99 mmol/L (98-107); CK-Creatinine Phosphokinase 75 U/L (55-170); Calcium 9.1 mg/dL (8.4-10.2); Carbon Dioxide 34 mmol/L (22-30); Creatinine 1 1.18 mg/dL (0.66-1.25); Glucose 114 mg/dL (74-106); NT PRO BNP 104 pg/mL (0-900); Potassium 3.6 mmol/L (3.5-5.1); SGOT/AST 35 U/L (17-59); SGPT/ALT 29 U/L (0-50); SODIUM 142 mmol/L (137-145); Total Protein 7.5 g/dL (6.3-8.2)
[2019-06-27 18:39] LABS: INR 1.22 (0.8-3.0); PROTIME 13.8 SECONDS (8.83-12.87)
[2019-06-27 18:41] LABS: PTT 30.4 SECONDS (24.1-36.1)
[2019-06-27 19:33] LABS: Appearance CLEAR (CLEAR); Bilirubin NEGATIVE (NEGATIVE); Blood NEGATIVE Ery/ul (0-5); Glucose NEGATIVE (NEGATIVE); Ketones NEGATIVE (NEGATIVE); Leukocyte Esterase NEGATIVE (NEGATIVE); Mucus SLIGHT /HPF (NEGATIVE); Nitrite NEGATIVE (NEGATIVE); Protein,Urine Dip NEGATIVE (Negative); Specific Gravity 1.006 (1.005-1.025); Urobilinogen NEGATIVE mg/dL (0-1)
[2019-06-27 20:02] VITALS: O2SAT 96
[2019-06-27 20:27] VITALS: PULSE 67
[2019-06-27 20:46] VITALS: BP 147/87
--- NOTE | 2019-06-28 08:41 | XRAY ---
Indication: Chest discomfort. Comparison: February 05, 2019. Portable chest remains clear. Heart is not enlarged. Bony thorax intact. No new/acute findings.
== END 2019-06-27 20:43 | disposition home or self-care (01) ==
LOC: ED 17:33
DX: R07.89 Other chest pain (principal); R53.81 Other malaise; I10 Essential (primary) hypertension; Z79.899 Other long term (current) drug therapy
CPT/HCPCS: 36000; 36415; 71045; 80053; 81001; 82150; 82550; 82805; 83605; 83690; 83735; 83880; 84484; 85025; 85610; 85730; 93005; 93041; 94760; 96360; 96374; 99284; A9270-GY

== ENCOUNTER 2021-02-05 12:40 | Inpatient (IN) | payer MEDICARE, OTHER ==
[2021-02-05] MEDS ORDERED: Senokot-S Tablet PO PRN (17:32)
[2021-02-05] MEDS ORDERED: Aplisol ID ONE (18:00)
[2021-02-05 19:16] LABS: ANION GAP 8.7 MEQ/L (5-15); BLOOD UREA NITROGEN 23 mg/dL (9-20); CHLORIDE 97 mmol/L (98-107); Calcium 8.5 mg/dL (8.4-10.2); Carbon Dioxide 31 mmol/L (22-30); Creatinine 1 1.12 mg/dL (0.66-1.25); EST GLOMERULAR FILTRATION RATE > 60.0 ML/MIN; Glucose 119 mg/dL (74-106); Potassium 3.6 mmol/L (3.5-5.1); SODIUM 133 mmol/L (137-145)
[2021-02-05] MEDS: Aricept 10 MG PO SCH (20:54)
[2021-02-05] MEDS: Coreg 3.125 MG PO SCH (20:55)
[2021-02-05] MEDS: Cordarone 200 MG PO SCH (20:55)
[2021-02-05] MEDS: clonazePAM PO SCH (20:55)
[2021-02-05] MEDS: Pepcid 20 MG PO SCH (20:56)
[2021-02-05] MEDS: NEURONTIN 300 MG PO SCH (20:56)
[2021-02-05] MEDS: BACIGUENT 30 GM TOP SCH (21:11)
[2021-02-05] MEDS ORDERED: DONEPEZIL HCL 5 MG PO SCH (22:00)
[2021-02-05] MEDS ORDERED: BACITRACIN TOP SCH (22:00)
[2021-02-05] MEDS ORDERED: NON-FORMULARY ITEM (Famotidine [Pepcid] 40 MG) PO SCH (22:00)
[2021-02-06] MEDS: Cordarone 200 MG PO SCH ×2 (09:34→21:36)
[2021-02-06] MEDS: clonazePAM PO SCH ×2 (09:34→21:36)
[2021-02-06] MEDS: Coreg 3.125 MG PO SCH ×2 (09:34→21:36)
[2021-02-06] MEDS: ECOTRIN 81 MG PO SCH (09:34)
[2021-02-06] MEDS: PLAVIX 75 MG Tablet PO SCH (09:35)
[2021-02-06] MEDS: THERAGRAN MULTIVITAMIN PO SCH (09:35)
[2021-02-06] MEDS: Neurontin 100 MG PO SCH (09:35)
[2021-02-06] MEDS: Klor Con 10 MEQ PO SCH (09:35)
[2021-02-06] MEDS: Lasix 40 MG PO SCH (09:35)
[2021-02-06] MEDS: Paxil 20 MG PO SCH (09:35)
[2021-02-06] MEDS: ZYLOPRIM 300 MG PO SCH (09:35)
[2021-02-06] MEDS: Protonix 40MG Tablet PO SCH (09:35)
[2021-02-06] MEDS: ZYLOPRIM 100 MG PO SCH (09:35)
[2021-02-06] MEDS: BACIGUENT 30 GM TOP SCH ×2 (09:36→21:35)
[2021-02-06] MEDS: ULTRAM 50 MG PO PRN ×2 (09:53→21:37)
[2021-02-06] MEDS ORDERED: NON-FORMULARY ITEM (Multivitamin [Multiple Vitamins] 1 EACH) PO SCH (10:00)
[2021-02-06] MEDS ORDERED: NON-FORMULARY ITEM (Omeprazole [Omeprazole] 40 MG) PO SCH (10:00)
[2021-02-06] MEDS ORDERED: Aplisol ID ONE (10:00)
[2021-02-06] MEDS: Aricept 10 MG PO SCH (21:35)
[2021-02-06] MEDS: NEURONTIN 300 MG PO SCH (21:36)
[2021-02-06] MEDS: REQUIP 2MG TAB PO SCH (21:36)
[2021-02-06] MEDS: Flomax 0.4 MG PO SCH (21:36)
[2021-02-06] MEDS: Pepcid 20 MG PO SCH (21:36)
[2021-02-06] MEDS: Carafate 1 GM PO SCH (21:36)
[2021-02-07] MEDS: Klor Con 10 MEQ PO SCH (09:22)
[2021-02-07] MEDS: Carafate 1 GM PO SCH ×2 (09:22→21:10)
[2021-02-07] MEDS: Neurontin 100 MG PO SCH (09:23)
[2021-02-07] MEDS: THERAGRAN MULTIVITAMIN PO SCH (09:23)
[2021-02-07] MEDS: clonazePAM PO SCH ×2 (09:23→21:12)
[2021-02-07] MEDS: ZYLOPRIM 300 MG PO SCH (09:23)
[2021-02-07] MEDS: ECOTRIN 81 MG PO SCH (09:23)
[2021-02-07] MEDS: Coreg 3.125 MG PO SCH ×2 (09:23→21:11)
[2021-02-07] MEDS: PLAVIX 75 MG Tablet PO SCH (09:23)
[2021-02-07] MEDS: Lasix 40 MG PO SCH (09:24)
[2021-02-07] MEDS: Paxil 20 MG PO SCH (09:24)
[2021-02-07] MEDS: BACIGUENT 30 GM TOP SCH ×2 (09:24→21:09)
[2021-02-07] MEDS: Cordarone 200 MG PO SCH ×2 (09:24→21:11)
[2021-02-07] MEDS: Protonix 40MG Tablet PO SCH (09:24)
[2021-02-07] MEDS: ZYLOPRIM 100 MG PO SCH (09:25)
[2021-02-07] MEDS: DIOVAN 80 MG PO SCH (09:32)
[2021-02-07] MEDS: Aricept 10 MG PO SCH (21:10)
[2021-02-07] MEDS: Flomax 0.4 MG PO SCH (21:11)
[2021-02-07] MEDS: Pepcid 20 MG PO SCH (21:11)
[2021-02-07] MEDS: REQUIP 2MG TAB PO SCH (21:11)
[2021-02-07] MEDS: NEURONTIN 300 MG PO SCH (21:12)
[2021-02-08] MEDS ORDERED: VENTOLIN COMMON CANISTER IH PRN (08:24)
[2021-02-08] MEDS: ZYLOPRIM 100 MG PO SCH (09:59)
[2021-02-08] MEDS: DIOVAN 80 MG PO SCH (09:59)
[2021-02-08] MEDS: Coreg 3.125 MG PO SCH ×2 (10:00→22:00)
[2021-02-08] MEDS: Cordarone 200 MG PO SCH ×2 (10:00→21:59)
[2021-02-08] MEDS: clonazePAM PO SCH ×2 (10:00→22:00)
[2021-02-08] MEDS: Protonix 40MG Tablet PO SCH (10:00)
[2021-02-08] MEDS: Neurontin 100 MG PO SCH (10:00)
[2021-02-08] MEDS: ECOTRIN 81 MG PO SCH (10:00)
[2021-02-08] MEDS: Paxil 20 MG PO SCH (10:01)
[2021-02-08] MEDS: Carafate 1 GM PO SCH ×2 (10:01→22:00)
[2021-02-08] MEDS: ZYLOPRIM 300 MG PO SCH (10:01)
[2021-02-08] MEDS: PLAVIX 75 MG Tablet PO SCH (10:01)
[2021-02-08] MEDS: THERAGRAN MULTIVITAMIN PO SCH (10:01)
[2021-02-08] MEDS: Klor Con 10 MEQ PO SCH (10:01)
[2021-02-08] MEDS: BACIGUENT 30 GM TOP SCH ×2 (10:01→21:48)
[2021-02-08] MEDS: Lasix 40 MG PO SCH (10:01)
[2021-02-08] MEDS ORDERED: PATIENT OWN MEDICATION IH PRN ×2 (11:19→11:30)
--- NOTE | 2021-02-08 14:37 | PCM.NOTE ---
Date and Time: 02/08/21 1428 Subjective Assessment: Pt was noted to have red around one of the wounds on his RLE. Also c/o constipation. PT was working with pt and noted some blood in the stool - he apparently has an anal fissure that he has been having difficulties with. Pt has some SOB with walking/therapy and would like to continue his albuterol inhaler - has it here from home. - Review of Systems Constitutional: No Fever Respiratory: Short Of Breath Objective Exam General Appearance: no apparent distress, alert, obese Neurologic Exam: 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, cooperative, normal mood/affect Skin Exam: warm, dry, other (approx 2 cm erythema of the proximal R lower leg, medially, surrounding the incision. No induration/warmth. NTTP), No rash Wound Assessment: Skin/Wound Assessment Wound/Incision Assessment Start: 02/07/21 16:46 Text: Status: Active Freq: Q8H Protocol: Document 02/08/21 08:00 BA (Rec: 02/08/21 08:50 BA [id number]) Wound/Incision Assessment Right Lower Proximal Calf Wound Assessment Shift Assessment Wound Type Incision Wound Stage Non Pressure Wound Dressing Status Dry & Intact Drainage Amount None Drainage Odor None/Absent General Appearance Well Approximated Surrounding Tissue [place] Topical Solution/Irrigant Medicated Ointment Comment R upper inner calf with scabbed incision; pink surrounding area. Cleaned with hipiclens/steril H2O. Bacitracin ointment applied; open to air. Dr Dubon aware. Same pinked area marked with marker. Continue to monitor. Upper Medial Abdomen Wound Assessment Shift Assessment Wound Type Incision Wound Stage Non Pressure Wound Drainage Amount Minimal Drainage Description Sanguineous Drainage Odor None/Absent General Appearance Unapproximated Comment 2 small areas noted clean without redness. Cleaned with hipiclens/sterile H2O. Bactracin applied to areas; covered with dressing. Medial Chest Wound Assessment Shift Assessment Wound Type Incision Wound Stage Non Pressure Wound Drainage Amount Moderate Drainage Description Sanguineous Drainage Odor None/Absent General Appearance Well Approximated Surrounding Tissue [place] Topical Solution/Irrigant Medicated Ointment Packing Type Gauze Pads Primary Dressing Non-Adherent Gauze Pads Comment Distal Mid line incision draining , approximated without redness. Cleaned with hipiclens/sterile H2O Bacitracin applied; covered with dressing. Ears, Nose, Throat Exam: moist mucous membranes Respiratory Exam: normal breath sounds, lungs clear, No respiratory distress, No crackles/rales, No rhonchi, No wheezing Cardiovascular Exam: regular rate/rhythm, normal heart sounds, other (linear scar on sternum is healing well, no erythema/exudate.), No murmur Extremity Exam: other (two small healing linear scars on RLE - one is proximal and approx 4cm, the other is distal and approx 1 cm or less. Both are medial.) OBJECTIVE DATA Vital Signs: Vital Signs - 24 hr Temp Pulse Resp BP Pulse Ox 02/08/21 13:28 75 16 95 02/08/21 08:00 97.3 F 77 16 106/60 93 L 02/08/21 07:45 97.3 F 77 16 106/60 93 L 02/07/21 20:00 99.0 F 74 20 99/68 96 Pain Assessment - Last Documented Pain Intensity 4 Intake and Output: Intake & Output 02/06/21 02/07/21 02/08/21 02/09/21 11:59 11:59 11:59 11:59 Intake Total 380 400 920 Output Total 700 400 Balance -320 0 920 Weight 142.5 kg 142.5 kg 142.5 kg Radiology Exams: Radiology Procedures Category Date Time Status CHEST 2 VIEWS (PA AND LAT) Routine Exams 02/08/21 Ordered Assessment/Plan (1) S/P CABG (coronary artery bypass graft) Current Visit: Yes Status: Acute Assessment & Plan: Doing great. I think the area on the leg is just inflammed; I've asked the nurse to maria m the borders with a pen and continue to observe. Code(s): Z95.1 - PRESENCE OF AORTOCORONARY BYPASS GRAFT (2) Constipation Current Visit: Yes Status: Chronic Qualifiers: Constipation type: slow transit constipation Qualified Code(s): K59.01 - Slow transit constipation Assessment & Plan: he does have stool softener that is prn; encourage use. Code(s): K59.00 - CONSTIPATION, UNSPECIFIED (3) ROCK (dyspnea on exertion) Current Visit: Yes Status: Acute Assessment & Plan: albuterol inhaler prn; ok to use from home. 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
[2021-02-08 16:34] LABS: Hematocrit 32.9 % (42-50); Mean Cell Volume 94.8 fl (78-100); Mean Corpuscular Hemoglobin 28.8 pg (26-32); Mean Corpuscular Hgb Concent. 30.4 g/dl (32-36); Mean Platelet Volume 9.1 fl (7.5-11.0); Platelet Count 309 K/mm3 (150-450); Red Blood Count 3.47 M/mm3 (4.1-5.6); Red Cell Distribution Width 15.7 % (11.5-14.0); White Blood Count 9.6 K/mm3 (4.0-10.5)
[2021-02-08] MEDS ORDERED: Mucinex 600MG ER Tabs PO ONE (16:53)
[2021-02-08 17:10] LABS: BAND 1 % (0.0-2.0); Eosinophil 2 % (0.00-3.0); Lymphocytes 14 % (24-44); Monocyte 8 % (0.0-12.0); Neutrophils 75 % (36.-66.); Polychromasia 1+; Total Cells Counted 100
[2021-02-08 17:11] LABS: Platelet Estimate NORMAL (NORMAL)
[2021-02-08 17:12] LABS: ANISOCYTOSIS 1+
--- NOTE | 2021-02-08 18:59 | XRAY ---
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 Comparison: June 27, 2019. Portable apical lordotic chest less inflated with new cardiomegaly and CABG surgery. Also new left mid to lower lung infiltrate/atelectasis and tiny bibasilar effusions. Bony thorax intact again with mild osteopenia and degenerative changes. Comment: Preliminary interpretation was made by [facility]. No critical discrepancy.
[2021-02-08] MEDS: REQUIP 2MG TAB PO SCH (21:58)
[2021-02-08] MEDS: Mucinex 600MG ER Tabs PO SCH (21:58)
[2021-02-08] MEDS: NEURONTIN 300 MG PO SCH (21:59)
[2021-02-08] MEDS: Aricept 10 MG PO SCH (21:59)
[2021-02-08] MEDS: Pepcid 20 MG PO SCH (21:59)
[2021-02-08] MEDS: Flomax 0.4 MG PO SCH (21:59)
[2021-02-09] MEDS: ULTRAM 50 MG PO PRN ×2 (08:37→21:24)
[2021-02-09] MEDS: PLAVIX 75 MG Tablet PO SCH (10:22)
[2021-02-09] MEDS: DIOVAN 80 MG PO SCH (10:22)
[2021-02-09] MEDS: Mucinex 600MG ER Tabs PO SCH ×2 (10:22→21:16)
[2021-02-09] MEDS: Carafate 1 GM PO SCH ×2 (10:22→21:15)
[2021-02-09] MEDS: KEFLEX 500 MG PO SCH ×3 (10:22→21:14)
[2021-02-09] MEDS: ECOTRIN 81 MG PO SCH (10:22)
[2021-02-09] MEDS: Neurontin 100 MG PO SCH (10:23)
[2021-02-09] MEDS: Cordarone 200 MG PO SCH ×2 (10:23→21:15)
[2021-02-09] MEDS: ZYLOPRIM 300 MG PO SCH (10:23)
[2021-02-09] MEDS: ZYLOPRIM 100 MG PO SCH (10:23)
[2021-02-09] MEDS: THERAGRAN MULTIVITAMIN PO SCH (10:23)
[2021-02-09] MEDS: Klor Con 10 MEQ PO SCH (10:23)
[2021-02-09] MEDS: clonazePAM PO SCH ×2 (10:23→21:17)
[2021-02-09] MEDS: Lasix 40 MG PO SCH (10:24)
[2021-02-09] MEDS: Paxil 20 MG PO SCH (10:24)
[2021-02-09] MEDS: Protonix 40MG Tablet PO SCH (10:24)
[2021-02-09] MEDS: Coreg 3.125 MG PO SCH ×2 (10:24→21:16)
[2021-02-09] MEDS: BACIGUENT 30 GM TOP SCH ×2 (11:00→21:17)
[2021-02-09] MEDS: TYLENOL EXTRA STRENGTH 500 MG PO PRN (15:22)
[2021-02-09] MEDS: REQUIP 2MG TAB PO SCH (21:14)
[2021-02-09] MEDS: Flomax 0.4 MG PO SCH (21:15)
[2021-02-09] MEDS: Pepcid 20 MG PO SCH (21:15)
[2021-02-09] MEDS: Aricept 10 MG PO SCH (21:15)
[2021-02-09] MEDS: NEURONTIN 300 MG PO SCH (21:16)
[2021-02-10] MEDS: ULTRAM 50 MG PO PRN ×2 (08:20→20:57)
[2021-02-10] MEDS: Carafate 1 GM PO SCH ×2 (10:43→21:00)
[2021-02-10] MEDS: Neurontin 100 MG PO SCH (10:43)
[2021-02-10] MEDS: Mucinex 600MG ER Tabs PO SCH ×2 (10:43→21:00)
[2021-02-10] MEDS: ZYLOPRIM 100 MG PO SCH (10:44)
[2021-02-10] MEDS: Cordarone 200 MG PO SCH ×2 (10:44→21:00)
[2021-02-10] MEDS: PLAVIX 75 MG Tablet PO SCH (10:44)
[2021-02-10] MEDS: DIOVAN 80 MG PO SCH (10:44)
[2021-02-10] MEDS: ZYLOPRIM 300 MG PO SCH (10:44)
[2021-02-10] MEDS: ECOTRIN 81 MG PO SCH (10:44)
[2021-02-10] MEDS: Paxil 20 MG PO SCH (10:44)
[2021-02-10] MEDS: Klor Con 10 MEQ PO SCH (10:45)
[2021-02-10] MEDS: clonazePAM PO SCH ×2 (10:45→20:57)
[2021-02-10] MEDS: THERAGRAN MULTIVITAMIN PO SCH (10:45)
[2021-02-10] MEDS: Lasix 40 MG PO SCH (10:45)
[2021-02-10] MEDS: KEFLEX 500 MG PO SCH ×3 (10:45→21:01)
[2021-02-10] MEDS: Protonix 40MG Tablet PO SCH (10:46)
[2021-02-10] MEDS: Coreg 3.125 MG PO SCH ×2 (10:46→21:01)
[2021-02-10] MEDS: BACIGUENT 30 GM TOP SCH ×2 (11:00→21:04)
[2021-02-10] MEDS ORDERED: IMODIUM 2 MG PO PRN (15:32)
[2021-02-10] MEDS: REQUIP 2MG TAB PO SCH (21:00)
[2021-02-10] MEDS: Aricept 10 MG PO SCH (21:01)
[2021-02-10] MEDS: Flomax 0.4 MG PO SCH (21:03)
[2021-02-10] MEDS: NEURONTIN 300 MG PO SCH (21:03)
[2021-02-10] MEDS: Pepcid 20 MG PO SCH (21:06)
[2021-02-11] MEDS: ULTRAM 50 MG PO PRN ×2 (02:51→09:48)
[2021-02-11] MEDS: Carafate 1 GM PO SCH ×2 (09:46→21:29)
[2021-02-11] MEDS: Paxil 20 MG PO SCH (09:46)
[2021-02-11] MEDS: Acidophilus TABLET PO SCH (09:46)
[2021-02-11] MEDS: Mucinex 600MG ER Tabs PO SCH ×2 (09:46→21:30)
[2021-02-11] MEDS: DIOVAN 80 MG PO SCH (09:46)
[2021-02-11] MEDS: ECOTRIN 81 MG PO SCH (09:47)
[2021-02-11] MEDS: Protonix 40MG Tablet PO SCH (09:47)
[2021-02-11] MEDS: Klor Con 10 MEQ PO SCH (09:47)
[2021-02-11] MEDS: PLAVIX 75 MG Tablet PO SCH (09:47)
[2021-02-11] MEDS: ZYLOPRIM 100 MG PO SCH (09:47)
[2021-02-11] MEDS: Coreg 3.125 MG PO SCH ×2 (09:47→21:30)
[2021-02-11] MEDS: Cordarone 200 MG PO SCH ×2 (09:47→21:29)
[2021-02-11] MEDS: Neurontin 100 MG PO SCH (09:47)
[2021-02-11] MEDS: Lasix 40 MG PO SCH (09:47)
[2021-02-11] MEDS: ZYLOPRIM 300 MG PO SCH (09:47)
[2021-02-11] MEDS: clonazePAM PO SCH ×2 (09:47→21:29)
[2021-02-11] MEDS: THERAGRAN MULTIVITAMIN PO SCH (09:48)
[2021-02-11] MEDS: Zosyn 3.375 GM Vial 3.375 GM in Sodium Chloride 100ML MINI-BAG PLUS 100 ML IV SCH ×3 (09:48→23:56)
[2021-02-11] MEDS: BACIGUENT 30 GM TOP SCH ×2 (09:48→21:31)
[2021-02-11] MEDS ORDERED: Lasix 40 MG/4 ML IV ONE (14:15)
[2021-02-11] MEDS ORDERED: Klor Con 10 MEQ PO ONE (14:15)
[2021-02-11 20:52] LABS: QuantiFERON-TB Gold Plus Negative (Negative)
[2021-02-11] MEDS: Aricept 10 MG PO SCH (21:29)
[2021-02-11] MEDS: Pepcid 20 MG PO SCH (21:29)
[2021-02-11] MEDS: NEURONTIN 300 MG PO SCH (21:29)
[2021-02-11] MEDS: Flomax 0.4 MG PO SCH (21:30)
[2021-02-11] MEDS: REQUIP 2MG TAB PO SCH (21:30)
[2021-02-12] MEDS: Zosyn 3.375 GM Vial 3.375 GM in Sodium Chloride 100ML MINI-BAG PLUS 100 ML IV SCH ×4 (05:15→23:34)
[2021-02-12] MEDS: THERAGRAN MULTIVITAMIN PO SCH (10:03)
[2021-02-12] MEDS: Carafate 1 GM PO SCH ×2 (10:03→21:04)
[2021-02-12] MEDS: Protonix 40MG Tablet PO SCH (10:03)
[2021-02-12] MEDS: Mucinex 600MG ER Tabs PO SCH ×2 (10:03→21:03)
[2021-02-12] MEDS: Lasix 40 MG PO SCH (10:03)
[2021-02-12] MEDS: Coreg 3.125 MG PO SCH ×2 (10:03→21:04)
[2021-02-12] MEDS: PLAVIX 75 MG Tablet PO SCH (10:03)
[2021-02-12] MEDS: ZYLOPRIM 100 MG PO SCH (10:03)
[2021-02-12] MEDS: Klor Con 10 MEQ PO SCH (10:03)
[2021-02-12] MEDS: DIOVAN 80 MG PO SCH (10:04)
[2021-02-12] MEDS: Acidophilus TABLET PO SCH (10:04)
[2021-02-12] MEDS: Paxil 20 MG PO SCH (10:04)
[2021-02-12] MEDS: Neurontin 100 MG PO SCH (10:04)
[2021-02-12] MEDS: Cordarone 200 MG PO SCH ×2 (10:04→21:03)
[2021-02-12] MEDS: ECOTRIN 81 MG PO SCH (10:04)
[2021-02-12] MEDS: ZYLOPRIM 300 MG PO SCH (10:04)
[2021-02-12] MEDS: clonazePAM PO SCH ×2 (10:04→21:03)
[2021-02-12] MEDS: BACIGUENT 30 GM TOP SCH ×2 (10:20→21:05)
[2021-02-12] MEDS: TYLENOL EXTRA STRENGTH 500 MG PO PRN (17:00)
[2021-02-12] MEDS: Pepcid 20 MG PO SCH (21:03)
[2021-02-12] MEDS: NEURONTIN 300 MG PO SCH (21:03)
[2021-02-12] MEDS: Flomax 0.4 MG PO SCH (21:04)
[2021-02-12] MEDS: Aricept 10 MG PO SCH (21:04)
[2021-02-12] MEDS: REQUIP 2MG TAB PO SCH (21:04)
[2021-02-13] MEDS: Zosyn 3.375 GM Vial 3.375 GM in Sodium Chloride 100ML MINI-BAG PLUS 100 ML IV SCH ×4 (05:12→23:03)
[2021-02-13] MEDS: BACIGUENT 30 GM TOP SCH ×2 (09:38→21:16)
[2021-02-13] MEDS: Paxil 20 MG PO SCH (09:39)
[2021-02-13] MEDS: Lasix 40 MG PO SCH (09:39)
[2021-02-13] MEDS: Acidophilus TABLET PO SCH (09:39)
[2021-02-13] MEDS: ZYLOPRIM 300 MG PO SCH (09:39)
[2021-02-13] MEDS: ECOTRIN 81 MG PO SCH (09:39)
[2021-02-13] MEDS: Carafate 1 GM PO SCH ×2 (09:39→20:38)
[2021-02-13] MEDS: Klor Con 10 MEQ PO SCH (09:39)
[2021-02-13] MEDS: THERAGRAN MULTIVITAMIN PO SCH (09:39)
[2021-02-13] MEDS: PLAVIX 75 MG Tablet PO SCH (09:39)
[2021-02-13] MEDS: TYLENOL EXTRA STRENGTH 500 MG PO PRN (09:42)
[2021-02-13] MEDS: Mucinex 600MG ER Tabs PO SCH ×2 (09:42→20:38)
[2021-02-13] MEDS: ZYLOPRIM 100 MG PO SCH (09:43)
[2021-02-13] MEDS: clonazePAM PO SCH ×2 (09:43→20:39)
[2021-02-13] MEDS: Coreg 3.125 MG PO SCH ×2 (09:43→20:37)
[2021-02-13] MEDS: Neurontin 100 MG PO SCH (09:43)
[2021-02-13] MEDS: Protonix 40MG Tablet PO SCH (09:43)
[2021-02-13] MEDS: DIOVAN 80 MG PO SCH (09:43)
[2021-02-13] MEDS: Cordarone 200 MG PO SCH ×2 (09:43→20:38)
[2021-02-13] MEDS: Pepcid 20 MG PO SCH (20:37)
[2021-02-13] MEDS: ULTRAM 50 MG PO PRN (20:37)
[2021-02-13] MEDS: REQUIP 2MG TAB PO SCH (20:38)
[2021-02-13] MEDS: Aricept 10 MG PO SCH (20:38)
[2021-02-13] MEDS: NEURONTIN 300 MG PO SCH (20:39)
[2021-02-13] MEDS: Flomax 0.4 MG PO SCH (20:39)
[2021-02-14] MEDS: ULTRAM 50 MG PO PRN ×2 (05:08→17:55)
[2021-02-14 06:03] LABS: Hematocrit 33.4 % (42-50); Mean Corpuscular Hemoglobin 28.7 pg (26-32); Mean Corpuscular Hgb Concent. 29.9 g/dl (32-36); Mean Platelet Volume 9.4 fl (7.5-11.0); Platelet Count 364 K/mm3 (150-450); Red Blood Count 3.48 M/mm3 (4.1-5.6); Red Cell Distribution Width 15.4 % (11.5-14.0); White Blood Count 8.9 K/mm3 (4.0-10.5)
[2021-02-14] MEDS: Zosyn 3.375 GM Vial 3.375 GM in Sodium Chloride 100ML MINI-BAG PLUS 100 ML IV SCH ×2 (06:22→11:36)
[2021-02-14 06:53] LABS: ANION GAP 9.3 MEQ/L (5-15); BLOOD UREA NITROGEN 16 mg/dL (9-20); CHLORIDE 102 mmol/L (98-107); Calcium 8.7 mg/dL (8.4-10.2); Carbon Dioxide 30 mmol/L (22-30); Creatinine 1 1.24 mg/dL (0.66-1.25); EST GLOMERULAR FILTRATION RATE > 60.0 ML/MIN; Glucose 100 mg/dL (74-106); Potassium 4.3 mmol/L (3.5-5.1); SODIUM 137 mmol/L (137-145)
[2021-02-14] MEDS: BACIGUENT 30 GM TOP SCH ×2 (09:18→20:59)
[2021-02-14] MEDS: DIOVAN 80 MG PO SCH (09:19)
[2021-02-14] MEDS: Paxil 20 MG PO SCH (09:19)
[2021-02-14] MEDS: ZYLOPRIM 300 MG PO SCH (09:19)
[2021-02-14] MEDS: ECOTRIN 81 MG PO SCH (09:19)
[2021-02-14] MEDS: Coreg 3.125 MG PO SCH ×2 (09:19→21:10)
[2021-02-14] MEDS: Carafate 1 GM PO SCH ×2 (09:19→21:00)
[2021-02-14] MEDS: THERAGRAN MULTIVITAMIN PO SCH (09:19)
[2021-02-14] MEDS: Mucinex 600MG ER Tabs PO SCH ×2 (09:19→21:00)
[2021-02-14] MEDS: Neurontin 100 MG PO SCH (09:20)
[2021-02-14] MEDS: PLAVIX 75 MG Tablet PO SCH (09:20)
[2021-02-14] MEDS: TYLENOL EXTRA STRENGTH 500 MG PO PRN (09:20)
[2021-02-14] MEDS: Acidophilus TABLET PO SCH (09:20)
[2021-02-14] MEDS: Protonix 40MG Tablet PO SCH (09:20)
[2021-02-14] MEDS: Cordarone 200 MG PO SCH ×2 (09:20→21:01)
[2021-02-14] MEDS: ZYLOPRIM 100 MG PO SCH (09:20)
[2021-02-14] MEDS: Klor Con 10 MEQ PO SCH (09:20)
[2021-02-14] MEDS: Lasix 40 MG PO SCH (09:20)
[2021-02-14] MEDS: clonazePAM PO SCH ×2 (09:20→21:01)
[2021-02-14] MEDS: Pepcid 20 MG PO SCH (21:00)
[2021-02-14] MEDS: Aricept 10 MG PO SCH (21:00)
[2021-02-14] MEDS: REQUIP 2MG TAB PO SCH (21:01)
[2021-02-14] MEDS: NEURONTIN 300 MG PO SCH (21:01)
[2021-02-14] MEDS: Flomax 0.4 MG PO SCH (21:01)
[2021-02-15] MEDS: ULTRAM 50 MG PO PRN ×2 (00:03→21:02)
[2021-02-15] MEDS: Mucinex 600MG ER Tabs PO SCH ×2 (09:43→21:01)
[2021-02-15] MEDS: Cordarone 200 MG PO SCH ×2 (09:43→21:02)
[2021-02-15] MEDS: Carafate 1 GM PO SCH ×2 (09:43→21:02)
[2021-02-15] MEDS: THERAGRAN MULTIVITAMIN PO SCH (09:43)
[2021-02-15] MEDS: DIOVAN 80 MG PO SCH (09:43)
[2021-02-15] MEDS: Protonix 40MG Tablet PO SCH (09:43)
[2021-02-15] MEDS: clonazePAM PO SCH ×2 (09:43→21:01)
[2021-02-15] MEDS: ECOTRIN 81 MG PO SCH (09:43)
[2021-02-15] MEDS: Klor Con 10 MEQ PO SCH (09:43)
[2021-02-15] MEDS: PLAVIX 75 MG Tablet PO SCH (09:43)
[2021-02-15] MEDS: Coreg 3.125 MG PO SCH ×2 (09:43→21:01)
[2021-02-15] MEDS: Lasix 40 MG PO SCH (09:43)
[2021-02-15] MEDS: Neurontin 100 MG PO SCH (09:44)
[2021-02-15] MEDS: BACIGUENT 30 GM TOP SCH ×2 (09:44→21:02)
[2021-02-15] MEDS: Paxil 20 MG PO SCH (09:44)
[2021-02-15] MEDS: Acidophilus TABLET PO SCH (09:44)
[2021-02-15] MEDS: ZYLOPRIM 100 MG PO SCH (09:44)
[2021-02-15] MEDS: TYLENOL EXTRA STRENGTH 500 MG PO PRN (09:44)
[2021-02-15] MEDS: ZYLOPRIM 300 MG PO SCH (09:44)
[2021-02-15] MEDS: NEURONTIN 300 MG PO SCH (21:01)
[2021-02-15] MEDS: REQUIP 2MG TAB PO SCH (21:01)
[2021-02-15] MEDS: Aricept 10 MG PO SCH (21:01)
[2021-02-15] MEDS: Flomax 0.4 MG PO SCH (21:01)
[2021-02-15] MEDS: Pepcid 20 MG PO SCH (21:02)
[2021-02-16] MEDS: TYLENOL EXTRA STRENGTH 500 MG PO PRN (04:25)
[2021-02-16] MEDS: THERAGRAN MULTIVITAMIN PO SCH (10:15)
[2021-02-16] MEDS: Neurontin 100 MG PO SCH (10:15)
[2021-02-16] MEDS: Coreg 3.125 MG PO SCH ×2 (10:15→21:27)
[2021-02-16] MEDS: Carafate 1 GM PO SCH ×2 (10:15→21:27)
[2021-02-16] MEDS: Klor Con 10 MEQ PO SCH (10:15)
[2021-02-16] MEDS: Lasix 40 MG PO SCH (10:15)
[2021-02-16] MEDS: PLAVIX 75 MG Tablet PO SCH (10:15)
[2021-02-16] MEDS: clonazePAM PO SCH ×2 (10:15→21:28)
[2021-02-16] MEDS: Acidophilus TABLET PO SCH (10:15)
[2021-02-16] MEDS: Protonix 40MG Tablet PO SCH (10:15)
[2021-02-16] MEDS: ZYLOPRIM 100 MG PO SCH (10:15)
[2021-02-16] MEDS: ZYLOPRIM 300 MG PO SCH (10:16)
[2021-02-16] MEDS: DIOVAN 80 MG PO SCH (10:16)
[2021-02-16] MEDS: ECOTRIN 81 MG PO SCH (10:17)
[2021-02-16] MEDS: Cordarone 200 MG PO SCH ×2 (10:17→21:28)
[2021-02-16] MEDS: Paxil 20 MG PO SCH (10:17)
[2021-02-16] MEDS: Mucinex 600MG ER Tabs PO SCH ×2 (10:17→21:26)
[2021-02-16] MEDS: BACIGUENT 30 GM TOP SCH ×2 (10:23→21:25)
[2021-02-16] MEDS: ULTRAM 50 MG PO PRN (11:57)
[2021-02-16] MEDS: REQUIP 2MG TAB PO SCH (21:27)
[2021-02-16] MEDS: Aricept 10 MG PO SCH (21:27)
[2021-02-16] MEDS: Flomax 0.4 MG PO SCH (21:27)
[2021-02-16] MEDS: NEURONTIN 300 MG PO SCH (21:28)
[2021-02-16] MEDS: Pepcid 20 MG PO SCH (21:28)
[2021-02-17 09:10] VITALS: BP 133/69; PULSE 75; O2SAT 94
[2021-02-17] MEDS: ECOTRIN 81 MG PO SCH (09:21)
[2021-02-17] MEDS: PLAVIX 75 MG Tablet PO SCH (09:21)
[2021-02-17] MEDS: THERAGRAN MULTIVITAMIN PO SCH (09:21)
[2021-02-17] MEDS: Paxil 20 MG PO SCH (09:21)
[2021-02-17] MEDS: clonazePAM PO SCH (09:21)
[2021-02-17] MEDS: Mucinex 600MG ER Tabs PO SCH (09:21)
[2021-02-17] MEDS: Protonix 40MG Tablet PO SCH (09:22)
[2021-02-17] MEDS: Neurontin 100 MG PO SCH (09:22)
[2021-02-17] MEDS: Carafate 1 GM PO SCH (09:22)
[2021-02-17] MEDS: ZYLOPRIM 100 MG PO SCH (09:22)
[2021-02-17] MEDS: Coreg 3.125 MG PO SCH (09:22)
[2021-02-17] MEDS: Lasix 40 MG PO SCH (09:22)
[2021-02-17] MEDS: DIOVAN 80 MG PO SCH (09:22)
[2021-02-17] MEDS: ZYLOPRIM 300 MG PO SCH (09:22)
[2021-02-17] MEDS: Klor Con 10 MEQ PO SCH (09:22)
[2021-02-17] MEDS: Cordarone 200 MG PO SCH (09:22)
[2021-02-17] MEDS: Acidophilus TABLET PO SCH (09:22)
[2021-02-17] MEDS: BACIGUENT 30 GM TOP SCH (09:23)
--- NOTE | 2021-02-18 08:35 | XRAY ---
Indication: Pain and swelling. Two-dimensional sonogram and color Doppler imaging of the major venous vessels of the right leg was performed. Comparison: March 21, 2015. No thrombus seen in the examined deep venous vessels of the right leg including greater saphenous vein. Veins demonstrate normal compressibility. Venous waveforms are normal with and without augmentation. Impression: Right leg again negative for DVT. Comment: Preliminary report was given.
--- NOTE | 2021-02-25 06:37 | PCM.DS ---
Discharge Summary Date of Admission: 02/05/21 16:25 Date of Discharge: 02/17/2021 Admitting Physician: MACY PADILLA Primary Care Provider: MACY PADILLA Allergies Allergies Sulfa (Sulfonamide Antibiotics) [Sulfa(Sulfonamide Antibiotics)] Allergy (Unknown, Verified 02/05/21 17:14) Hospital Summary - Hospital Course Hospital Course: Pt. admitted to swing bed program s/p cabg for continued monitering and PT for strengthening after an extended period of deconditioning. Pt. was not ambulating extremely well and got very sob on exertion, after over a week of aggressive therapy the patient had improved enough he was ready for d/c. The pa tient was noted to have acouple of minor problems first was possible leg donor site infection vs healing pt. was started on prophylactic antibiotics which were d/c when cultures were negative. and also noted to have a flare with his anal fissure, which quickly resolved. - Vitals & Intake/Output Vital Signs: Vital Signs Temperature 97.4 F 02/17/21 07:00 Pulse Rate 75 02/17/21 07:00 Respiratory Rate 18 02/17/21 07:00 Blood Pressure 133/69 02/17/21 07:00 O2 Sat by Pulse Oximetry 94 L 02/17/21 07:00 - Lab Result Diagrams: 02/14/21 05:15 02/14/21 05:15 Micro Results-Entire Visit: Microbiology 02/11/21 11:00 Wound Culture - Final Leg - Right NO GROWTH - Procedures and Test Procedures and Tests throughout Hospitalization: Therapy Orders & Screens 02/05/21 17:55 PT Eval & Treat ( Order) ONCE Reason for Eval:: STRENGENTHING Diagnosis: DECONDITIONING R/T POST CABG 02/05/21 21:00 BiPap/CPAP ROUTINE Comment: HOME UNIT 02/06/21 10:54 PT Clarification Order ROUTINE Comment: Physician Instructions: Reason For Exam: PT Clarification: PT TO RX 5-6X/WK TO ADDRESS INCREASING PT. INDEPENDENCE W/ FUNCTIONAL MOBILITY AND GAIT, THER EX, BALANCE ACTIVITIES, AND ENDURANCE TRAINING WELL PT. ED. RE: PROPER BREATHING, SAFETY W/ MOBILITY, AND POST-OP PRECAUTIONS TO MAXIMIZE FUNCTIONAL INDEPENDENCE FOR SAFE RETURN HOME. 02/06/21 16:56 OT Eval and Treat ( Order) ONCE Comment: Consulting Provider: Physician Instructions: Reason For Exam: Diagnosis: DECONDITIONING R/T POST CABG 02/06/21 17:36 OT Clarification Order ROUTINE Comment: Physician Instructions: Reason For Exam: OT Clarification: OT TO TX 5X/WK TO ADDRESS ADL AND FUNCTIONAL MOBILITY RETRAINING, THERAPUETIC EXERCISES, AND A.E./DME EDUCATION AND RECOMMENDATIONS SO MR. HIDALGO CAN RETURN TO HOME WITH SPOUSE AT [facility]. 02/08/21 08:23 Respiratory Therapy Assessment DAILY Comment: Diagnosis: DECONDITIONING R/T POST CABG Discharge Exam General Appearance: no apparent distress, alert Neurologic Exam: alert, 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, cooperative, normal mood/affect, nml cerebellar function, sensation nml, No motor deficits Eye Exam: EOMI, eyes nml inspection Ears, Nose, Throat Exam: normal ENT inspection, pharynx normal, moist mucous membranes Neck Exam: normal inspection, non-tender, supple, full range of motion Respiratory Exam: normal breath sounds, lungs clear, No respiratory distress Cardiovascular Exam: regular rate/rhythm, normal heart sounds Gastrointestinal/Abdomen Exam: soft, No tenderness, No mass Male Genitalia Exam: deferred Rectal Exam: deferred Back Exam: normal inspection, normal range of motion, No CVA tenderness, No vertebral tenderness Extremity Exam: normal inspection, normal range of motion Skin Exam: normal color, warm, dry Final Diagnosis/Problem List - Final Discharge Diagnosis/Problem (1) Muscular deconditioning Status: Acute Code(s): R29.898 - OT SYMPTOMS AND SIGNS INVOLVING THE MUSCULOSKELETAL SYSTEM (2) Generalized weakness Status: Acute Code(s): R53.1 - WEAKNESS (3) ROCK (dyspnea on exertion) Status: Acute Code(s): R06.00 - DYSPNEA, UNSPECIFIED (4) S/P CABG (coronary artery bypass graft) Status: Acute Code(s): Z95.1 - PRESENCE OF AORTOCORONARY BYPASS GRAFT - Discharge Discharge Date: 02/17/21 Disposition: Home, Self-Care Condition: Stable Prescriptions: Continue Clopidogrel Bisulfate 75 mg [PLAVIX 75 MG Tablet] 75 mg PO DAILY Carvedilol 3.125 mg [Coreg 3.125 MG] 3.125 mg PO BID Aspirin [Aspirin EC] 81 mg PO DAILY Acetaminophen [Tylenol Extra Strength] 1 - 2 tab PO Q4H PRN PRN Reason: Pain Sennosides/Docusate Sodium [Senokot-S Tablet] 1 each PO HS PRN PRN Reason: Constipation Potassium Chloride 10 Meq Tab* [Klor Con 10 MEQ] 20 meq PO DAILY Paroxetine HCl 20 mg [Paxil 20 MG] 20 mg PO DAILY Omeprazole 40 mg PO DAILY Multivitamin [Multiple Vitamins] 1 each PO DAILY Gabapentin 300 mg [Neurontin 300 mg] 300 mg PO HS Gabapentin 100 mg [Neurontin 100 MG] 100 mg PO DAILY Famotidine [Pepcid] 40 mg PO HS Donepezil HCl [Donepezil HCl Odt] 5 mg PO HS Clonazepam 0.5 mg PO BID Bacitracin 1 gm TOP BID Allopurinol 300 mg [Zyloprim 300 mg] 300 mg PO DAILY Allopurinol 100 mg [Zyloprim 100 mg] 100 mg PO DAILY Tramadol HCl 50 mg [Ultram 50 mg] 50 mg PO Q6H PRN PRN Reason: Pain Valsartan [Diovan] 40 mg PO DAILY Furosemide 40 mg [Lasix 40 MG] 40 mg PO DAILY #30 tablet Changed Amiodarone HCl [Pacerone] 200 mg PO DAILY #5 tablet Outpatient Orders: Physical Therapy Eval & Treat Facility: [facility], Location: PHYSICAL THERAPY Instructions: Recovery After Coronary Artery Bypass Graft Surgery (CABG) Additional Instructions: *REMINDER DC INSTRUCTIONS FROM [facility] -CONTINUE STRICT STERNAL PRECAUTIONS FROM [facility] FOR 6 WEEKS, -NO LIFTING, PUSHING OR PULLING OVER 5 POUNDS FOR 6 WEEKS -NO DRIVING OR RETURN TO WORK UNTIL RELEASED BY SURGEON -WASH INCISIONS DAILY WITH MILD SOAP AND WATER, NO LOTIONS POWDERS, PAT DRY. CALL SURGEON IF ANY S/S OF INFECTION. -CARDIOVASCULAR DOCTOR WILL BE CALLING YOU WITH AN APT. TO SEE THEM -REFERRAL WAS SENT BY [facility] TO [facility] HERE AT [facility]- THEY WILL CONTACT YOU Follow up with: NERISSA VUONG MD [NON-STAFF PHY W/O PRIVILEGES] - 03/05/21 2:00 pm MACY PADILLA [Primary Care Provider] - 02/24/21 2:15 pm DEL RIVERA [NON-STAFF PHY W/O PRIVILEGES] - 02/27/21 11:40 am Forms: Patient Portal Information
== END 2021-02-17 19:14 | disposition home or self-care (01) | DRG 556 ==
LOC: MED SURG 16:25
PROVIDERS: ADMIT Family Medicine; ATTEND Family Medicine
DX: R29.898 Other symptoms and signs involving the musculoskeletal system (principal); Z95.1 Presence of aortocoronary bypass graft; K59.00 Constipation, unspecified; R06.00 Dyspnea, unspecified; K60.2 Anal fissure, unspecified; Z20.828 Contact with and (suspected) exposure to other viral communicable diseases; R53.1 Weakness; Z79.899 Other long term (current) drug therapy; Z79.01 Long term (current) use of anticoagulants
CPT/HCPCS: 36415; 71045; 80048; 85025; 85027; 86480; 87070; 93971; 94760; J1940; U0003; 97110-GP; A9270-GY

== ENCOUNTER 2022-02-23 12:43 | Emergency (ER) | payer MEDICARE, OTHER ==
--- NOTE | 2022-02-23 12:46 | ERPHSYRPT ---
- History of Present Illness Time Seen by Provider: 02/23/22 12:46 Historian: patient, family Exam Limitations: no limitations Physician History: This is an obese 67-year-old white male patient of Dr. Padilla who has a significant cardiac history including myocardial infarction, coronary artery disease, cardiac stents x6 and is taking Plavix and aspirin and presents with onset of substernal central nonradiating chest pressure. 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 The symptoms improved but is still present. Patient has a history of elevated cholesterol, hypertension, gout and gastroesophageal reflux disease. Timing/Duration: today Quality: pressure Location: substernal, central Chest Pain Radiation: no radiation Severity of Pain-Max: moderate Severity of Pain-Current: mild (To moderate) Modifying Factors: Improves With: nothing Associated Symptoms: denies symptoms Prior Chest Pain/Cardiac Workup: heart attack Nitro Today/Relief: no nitro taken today Aspirin Treatment Today: no aspirin today Allergies/Adverse Reactions: Sulfa (Sulfonamide Antibiotics) [Sulfa(Sulfonamide Antibiotics)] Allergy (Unknown, Verified 02/05/21 17:14) Home Medications: Allopurinol 100 mg [Zyloprim 100 mg] 100 mg PO DAILY 02/05/21 [History] Allopurinol 300 mg [Zyloprim 300 mg] 300 mg PO DAILY 02/05/21 [History] Aspirin [Aspirin EC] 81 mg PO DAILY 02/05/21 [History] Carvedilol 3.125 mg [Coreg 3.125 MG] 3.125 mg PO BID 02/05/21 [History] Clopidogrel Bisulfate [PLAVIX Tablet] 75 mg PO DAILY 02/05/21 [History] Donepezil HCl [Donepezil HCl Odt] 5 mg PO HS 02/05/21 [History] Famotidine [Pepcid] 20 mg PO HS 02/05/21 [History] Gabapentin [Neurontin ] 100 mg PO DAILY 02/05/21 [History] Gabapentin [Neurontin ] 300 mg PO BID 02/05/21 [History] Multivitamin [Multiple Vitamins] 1 each PO DAILY 02/05/21 [History] Omeprazole 40 mg PO DAILY 02/05/21 [History] Paroxetine HCl 20 mg [Paxil 20 MG] 20 mg PO DAILY 02/05/21 [History] clonazePAM [Clonazepam] 0.25 mg PO BID 02/05/21 [History] Valsartan [Diovan] 40 mg PO DAILY 02/06/21 [History] Ropinirole HCl 1 mg PO HS 02/23/22 [History] Rosuvastatin Calcium 40 mg PO HS 02/23/22 [History] Spironolactone 25 mg [Aldactone 25 MG] 25 mg PO DAILY 02/23/22 [History] Sucralfate 1 gm [Carafate 1 GM] 1 gm PO BID 02/23/22 [History] Tamsulosin HCl 0.4 mg [Flomax 0.4 MG] 0.4 mg PO DAILY 02/23/22 [History] Torsemide 30 mg PO DAILY 02/23/22 [History] Hx Tetanus, Diphtheria Vaccination/Date Given: Yes Hx Influenza Vaccination/Date Given: No Hx Pneumococcal Vaccination/Date Given: No Travel Risk - International Travel Have you traveled outside of the country in past 3 weeks: No - Coronavirus Screening Are you exhibiting any of the following symptoms?: No Close contact with a COVID-19 positive Pt in past 14-21 Days: No - Vaccine Status Have you recieved a Covid-19 vaccination: No - Review of Systems Constitutional: No Symptoms Eyes: No Symptoms Ears, Nose, & Throat: No Symptoms Respiratory: No Symptoms Cardiac: Chest Pain Abdominal/Gastrointestinal: No Symptoms Genitourinary Symptoms: No Symptoms Musculoskeletal: No Symptoms Skin: No Symptoms Neurological: No Symptoms Psychological: No Symptoms Endocrine: No Symptoms Hematologic/Lymphatic: No Symptoms Immunological/Allergic: No Symptoms - Past Medical History Pertinent Past Medical History: Yes Neurological History: TIA ENT History: No Pertinent History Cardiac History: Angina, Coronary Artery Disease, High Cholesterol, Hypertension, Myocardial Infarction ([place]) Respiratory History: COPD Endocrine Medical History: No Pertinent History Musculoskeletal History: Osteoarthritis GI Medical History: GERD History: No Pertinent History Psycho-Social History: No Pertinent History Male Reproductive Disorders: No Pertinent History Other Medical History: NOTED ABOVE; ALSO GERD. PSH: CARDIAC CATH W/ STENTS, CHOLECYSTECTOMY, BILATERAL MENISCUS SX, PARATHYROID REMOVAL - Past Surgical History Past Surgical History: Yes Neuro Surgical History: No Pertinent History Cardiac: CABG, Cardiac Catheterization, Cardiac Stent Respiratory: No Pertinent History Gastrointestinal: Cholecystectomy Genitourinary: No Pertinent History Musculoskeletal: No Pertinent History Male Surgical History: No Pertinent History Other Surgical History: bilat meniscus surgery, parathyroid removed - Social History Smoking Status: Never smoker Exposure to second hand smoke: No Drug Use: none Patient Lives Alone: No - Nursing Vital Signs Nursing Vital Signs: Initial Vital Signs Temperature 97.2 F 02/23/22 12:44 Pulse Rate 68 02/23/22 12:44 Respiratory Rate 18 02/23/22 12:44 Blood Pressure 135/79 02/23/22 12:44 O2 Sat by Pulse Oximetry 97 02/23/22 12:44 Pain Scale Pain Intensity 0 - Physical Exam General Appearance: no apparent distress, alert, obese Eye Exam: PERRL/EOMI, eyes nml inspection Ears, Nose, Throat Exam: normal ENT inspection, moist mucous membranes Neck Exam: normal inspection, non-tender, supple, full range of motion Respiratory Exam: normal breath sounds, chest tenderness, lungs clear, airway intact, No respiratory distress Cardiovascular Exam: regular rate/rhythm, normal heart sounds, normal peripheral pulses Gastrointestinal/Abdomen Exam: soft, normal bowel sounds, No tenderness Rectal Exam: not done Back Exam: normal inspection, normal range of motion, No CVA tenderness, No vertebral tenderness Extremity Exam: normal inspection, normal range of motion, pelvis stable Neurologic Exam: alert, 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, cooperative, claim clinician II-XII nml as tested, nor mal mood/affect, nml cerebellar function, nml station & gait, sensation nml Skin Exam: normal color, warm, dry Lymphatic Exam: No adenopathy SpO2 Interpretation: normal O2 Delivery: Room Air - Course Nursing assessment & vital signs reviewed: Yes EKG Interpreted by Me: RATE (66), LAFB, NORMAL INTERVALS, Right Bundle Branch Block, NORMAL ST-T, Other (No acute ischemic changes on today's EKG.) Ordered Tests: Active Orders 24 hr Category Date Time Status Merchant Tailor STAT Care 02/23/22 13:08 Active EKG-ER Only STAT Care 02/23/22 13:08 Active IV Insertion STAT Care 02/23/22 13:08 Active Pulse Oximetry (ED) STAT Care 02/23/22 13:08 Active CHEST 1 VIEW (PORTABLE) Stat Exams 02/23/22 13:08 Completed CHEST WITH CONTRAST [CT] Stat Exams 02/23/22 14:12 Completed CBC W DIFF Stat Lab 02/23/22 13:15 Completed CMP Stat Lab 02/23/22 13:15 Completed D-DIMER QUANTITATIVE Stat Lab 02/23/22 13:15 Completed NT PRO BNP Stat Lab 02/23/22 13:15 Completed TROPONIN Q3H Lab 02/23/22 13:15 Completed TROPONIN Q3H Lab 02/23/22 16:04 Received TROPONIN Q3H Lab 02/23/22 19:15 Ordered TROPONIN Q3H Lab 02/23/22 22:15 Ordered TROPONIN Q3H Lab 02/24/22 01:15 Ordered Medication Summary Generic Name Dose Route Start Last Admin Trade Name Freq PRN Reason Stop Dose Admin Sodium Chloride 1,000 mls @ 50 mls/hr 02/23/22 13:15 02/23/22 13:18 Sodium Chloride 0.9% 1000 Ml IV 03/25/22 13:14 50 mls/hr .Q20H ALLYSSA Administration Discontinued Medications Generic Name Dose Route Start Last Admin Trade Name Freq PRN Reason Stop Dose Admin Aspirin 324 mg 02/23/22 13:08 02/23/22 13:18 Aspirin 81 Mg Tab.Chew PO 02/23/22 13:09 324 mg STAT ONE Administration Aspirin Confirm 02/23/22 13:17 Aspirin 81 Mg Tab.Chew Administered 02/23/22 13:18 Dose 324 mg .ROUTE .STK-MED ONE Morphine Sulfate 2 mg 02/23/22 13:39 02/23/22 13:43 Morphine Sulfate 2 Mg/Ml Inj IV 02/23/22 13:40 Not Given STAT ONE Nitroglycerin 0.4 mg 02/23/22 13:09 02/23/22 13:18 Nitroglycerin 0.4 Mg (Ed) 0.4 Mg Tab.Subl SL 02/23/22 13:10 0.4 mg STAT ONE Administration Nitroglycerin Confirm 02/23/22 13:17 Nitroglycerin 0.4 Mg (Ed) 0.4 Mg Tab.Subl Administered 02/23/22 13:18 Dose 0.4 mg SL .STK-MED ONE Ondansetron HCl 4 mg 02/23/22 13:09 02/23/22 13:18 Ondansetron Hcl 4 Mg/2 Ml Vial IV 02/23/22 13:10 4 mg STAT ONE Administration Ondansetron HCl Confirm 02/23/22 13:16 Ondansetron Hcl 4 Mg/2 Ml Vial Administered 02/23/22 13:17 Dose 4 mg .ROUTE .STK-MED ONE Ondansetron HCl Confirm 02/23/22 13:25 Ondansetron Hcl 4 Mg/2 Ml Vial Administered 02/23/22 13:26 Dose 4 mg .ROUTE .STK-MED ONE Lab/Rad Data: Laboratory Result Diagrams 02/23/22 13:15 02/23/22 13:15 Laboratory Results 02/23/22 02/23/22 02/23/22 Range/Units 13:15 13:15 13:15 WBC (4.0-10.5) x10^3/uL RBC (4.1-5.6) x10^6/uL Hgb (12.5-18.0) g/dL Hct (42-50) % MCV (78-100) fL MCH (26-32) pg MCHC (32-36) g/dL RDW (11.5-14.0) % Plt Count (150-450) x10^3/uL MPV (7.5-11.0) fL Gran % (36.0-66.0) % Immature Gran % (Auto) (0.00-0.4) % Nucleat RBC Rel Count (0.00-0.1) % Eos # (Auto) (0-0.5) x10^3/uL Immature Gran # (Auto) (0.00-0.03) x10^3u/L Absolute Lymphs (auto) (1.0-4.6) x10^3/uL Absolute Monos (auto) (0.0-1.3) x10^3/uL Absolute Nucleated RBC (0.00-0.01) x10^3u/L Lymphocytes % (24.0-44.0) % Monocytes % (0.0-12.0) % Eosinophils % (0.00-5.0) % Basophils % (0.0-0.4) % Absolute Granulocytes (1.4-6.9) x10^3/uL Basophils # (0-0.4) x10^3/uL D-Dimer 0.88 H* (0.0-0.50) mg/L Sodium 138 (137-145) mmol/L Potassium 3.7 (3.5-5.1) mmol/L Chloride 102 (98-107) mmol/L Carbon Dioxide 31 H (22-30) mmol/L Anion Gap 9.3 (5-15) MEQ/L BUN 16 (9-20) mg/dL Creatinine 1.08 (0.66-1.25) mg/dL Estimated GFR > 60.0 ML/MIN Glucose 98 (74-106) mg/dL Calcium 8.9 (8.4-10.2) mg/dL Total Bilirubin 0.60 (0.2-1.3) mg/dL AST 30 (17-59) U/L ALT 31 (0-50) U/L Alkaline Phosphatase 104 (38-126) U/L Troponin I < 0.012 (0.000-0.034) ng/mL NT-Pro-B Natriuret Pep 370 (0-900) pg/mL Serum Total Protein 7.2 (6.3-8.2) g/dL Albumin 3.9 (3.5-5.0) g/dL 02/23/22 Range/Units 13:15 WBC 9.0 (4.0-10.5) x10^3/uL RBC 5.83 H (4.1-5.6) x10^6/uL Hgb 15.9 (12.5-18.0) g/dL Hct 48.7 (42-50) % MCV 83.5 (78-100) fL MCH 27.3 (26-32) pg MCHC 32.6 (32-36) g/dL RDW 14.3 H (11.5-14.0) % Plt Count 203 (150-450) x10^3/uL MPV 10.1 (7.5-11.0) fL Gran % 75.5 H (36.0-66.0) % Immature Gran % (Auto) 0.4 (0.00-0.4) % Nucleat RBC Rel Count 0.0 (0.00-0.1) % Eos # (Auto) 0.33 (0-0.5) x10^3/uL Immature Gran # (Auto) 0.04 H (0.00-0.03) x10^3u/L Absolute Lymphs (auto) 1.22 (1.0-4.6) x10^3/uL Absolute Monos (auto) 0.53 (0.0-1.3) x10^3/uL Absolute Nucleated RBC 0.00 (0.00-0.01) x10^3u/L Lymphocytes % 13.5 L (24.0-44.0) % Monocytes % 5.9 (0.0-12.0) % Eosinophils % 3.7 (0.00-5.0) % Basophils % 1.0 (0.0-0.4) % Absolute Granulocytes 6.82 (1.4-6.9) x10^3/uL Basophils # 0.09 (0-0.4) x10^3/uL D-Dimer (0.0-0.50) mg/L Sodium (137-145) mmol/L Potassium (3.5-5.1) mmol/L Chloride (98-107) mmol/L Carbon Dioxide (22-30) mmol/L Anion Gap (5-15) MEQ/L BUN (9-20) mg/dL Creatinine (0.66-1.25) mg/dL Estimated GFR ML/MIN Glucose (74-106) mg/dL Calcium (8.4-10.2) mg/dL Total Bilirubin (0.2-1.3) mg/dL AST (17-59) U/L ALT (0-50) U/L Alkaline Phosphatase (38-126) U/L Troponin I (0.000-0.034) ng/mL NT-Pro-B Natriuret Pep (0-900) pg/mL Serum Total Protein (6.3-8.2) g/dL Albumin (3.5-5.0) g/dL - Progress Progress: improved, re-examined Air Movement: good Progress Note: 02/23/22 16:37 CTA of the chest shows no acute cardiopulmonary process. There is no evidence of pulmonary embolus. There is a new indeterminate left lower lobe 2.2 cm nodule. Recommendation by radiology is a PET scan or CT of the chest. These findings were discussed with the patient. Blood Culture(s) Obtained: No Antibiotics given: No Counseled pt/family regarding: lab results, diagnosis, need for follow-up, rad results - Departure Departure Disposition: Home Clinical Impression: Chest pain, Left lower lobe pulmonary nodule Condition: Stable Critical Care Time: No Referrals: MACY PADILLA MD [Primary Care Provider] - Follow up/PCP as directed Additional Instructions: Follow-up with your primary care provider for further evaluation of this left lower lobe pulmonary nodule. Follow-up with cardiology for further evaluation of any chest pain. Take all your medications as prescribed. Return to emergency department symptoms worsen.
[2022-02-23] MEDS ORDERED: BABY ASPIRIN 81 MG CHEW PO ONE (13:08)
[2022-02-23] MEDS ORDERED: Nitrostat 0.4 MG (ED) SL ONE ×2 (13:09→13:17)
[2022-02-23] MEDS ORDERED: Zofran 4 MG/2 ML VIAL IV ONE (13:09)
[2022-02-23] MEDS ORDERED: Sodium Chloride 0.9% 1000 ML 1,000 ML IV SCH (13:15)
[2022-02-23] MEDS ORDERED: Zofran 4 MG/2 ML VIAL ONE ×2 (13:16→13:25)
[2022-02-23] MEDS ORDERED: BABY ASPIRIN 81 MG CHEW ONE (13:17)
[2022-02-23] MEDS ORDERED: Sodium Chloride 0.9% 1000 ML 1,000 ML ONE (13:17)
[2022-02-23 13:30] LABS: Absolute Neutrophil Ct (ANC) 6.82 x10^3/uL (1.4-6.9); Basophil (Absolute #) 0.09 x10^3/uL (0-0.4); Eosinophil % 3.7 % (0.00-5.0); Eosinophil (Absolute #) 0.33 x10^3/uL (0-0.5); Hematocrit 48.7 % (42-50); Hemoglobin 15.9 g/dL (12.5-18.0); Lymphocyte (Absolute #) 1.22 x10^3/uL (1.0-4.6); Lymphocytes % 13.5 % (24.0-44.0); Mean Cell Volume 83.5 fL (78-100); Mean Corpuscular Hemoglobin 27.3 pg (26-32); Mean Corpuscular Hgb Concent. 32.6 g/dL (32-36); Mean Platelet Volume 10.1 fL (7.5-11.0); Monocyte (Absolute #) 0.53 x10^3/uL (0.0-1.3); Monocytes % 5.9 % (0.0-12.0); Neutrophil % 75.5 % (36.0-66.0); Platelet Count 203 x10^3/uL (150-450); Red Blood Count 5.83 x10^6/uL (4.1-5.6); Red Cell Distribution Width 14.3 % (11.5-14.0)
--- NOTE | 2022-02-23 13:34 | XRAY ---
Indication: Chest pain. Comparison: January 27, 2022. Portable chest unchanged again demonstrating mild left base infiltrate/atelectasis/effusion. Remaining heart and lungs unremarkable again with incidental CABG. No new cardiopulmonary abnormalities.
[2022-02-23] MEDS ORDERED: MORPHINE SULFATE 2 MG INJ IV ONE (13:39)
[2022-02-23 14:00] LABS: ALBUMIN 3.9 g/dL (3.5-5.0); ALKALINE PHOSPHATASE 104 U/L (38-126); ANION GAP 9.3 MEQ/L (5-15); BLOOD UREA NITROGEN 16 mg/dL (9-20); CHLORIDE 102 mmol/L (98-107); Calcium 8.9 mg/dL (8.4-10.2); Carbon Dioxide 31 mmol/L (22-30); Creatinine 1 1.08 mg/dL (0.66-1.25); EST GLOMERULAR FILTRATION RATE > 60.0 ML/MIN; Glucose 98 mg/dL (74-106); NT PRO BNP 370 pg/mL (0-900); Potassium 3.7 mmol/L (3.5-5.1); SGOT/AST 30 U/L (17-59); SGPT/ALT 31 U/L (0-50); SODIUM 138 mmol/L (137-145); Total Protein 7.2 g/dL (6.3-8.2)
[2022-02-23 15:43] VITALS: BP 115/63
--- NOTE | 2022-02-23 16:31 | XRAY ---
Indication: Chest pain. Elevated d-dimer. COPD. Multiple contiguous axial images obtained through the chest using 100 cc Isovue-370 contrast and PE protocol. Comparison: August 28, 2021. There is good opacification of the pulmonary arteries to include the lobar and segmental branches. No pulmonary embolus. Heart not enlarged again with CABG surgery. Aorta minimally arteriosclerotic without aneurysm/dissection. Stable small paratracheal and bilateral hilar calcified nodes. No pathologic mediastinal/hilar lymphadenopathy. Lungs demonstrates clearing of previous bibasilar effusions with tiny left base residual. Again mild bibasilar fibrosis/scarring. Posterior lateral left lower lobe demonstrates 2.2 cm noncalcified nodule, potentially obscured by previous effusion. Elsewhere stable tiny calcified/noncalcified granulomas bilaterally. Bony thorax intact again with mild osteopenia and flowing osteophytes throughout the spine. Limited upper abdomen again demonstrates fatty liver, tiny splenic calcified granulomas and cholecystectomy clips. Impression: 1. Continued negative pulmonary embolus. No acute cardiopulmonary abnormalities. 2. New 2.2 cm indeterminant left lower lobe noncalcified nodule, presumed obscured by previous effusion. PET/CT may yield further information. 3. Again bibasilar fibrosis/scarring, chronic bony findings, fatty liver, and old granulomatous disease.
[2022-02-23 17:02] VITALS: PULSE 64; O2SAT 98
== END 2022-02-23 17:21 | disposition home or self-care (01) ==
LOC: ED 12:43
DX: R07.9 Chest pain, unspecified (principal); R91.1 Solitary pulmonary nodule; E78.5 Hyperlipidemia, unspecified; I10 Essential (primary) hypertension; I25.10 Atherosclerotic heart disease of native coronary artery without angina pectoris; J44.9 Chronic obstructive pulmonary disease, unspecified; Z79.02 Long term (current) use of antithrombotics/antiplatelets; Z79.899 Other long term (current) drug therapy; Z28.310 Unvaccinated for COVID-19
CPT/HCPCS: 36000; 36415; 71045; 71260; 80053; 83880; 84484; 85025; 85379; 93005; 93041; 94760; 96374; 99284; J2405; A9270-GY

== ENCOUNTER 2023-02-09 09:44 | Observation (INO) | payer MEDICARE, OTHER ==
[2023-02-09] MEDS ORDERED: BABY ASPIRIN 81 MG CHEW PO ONE (10:02)
[2023-02-09] MEDS ORDERED: BABY ASPIRIN 81 MG CHEW ONE (10:07)
[2023-02-09 10:19] LABS: Absolute Neutrophil Ct (ANC) 9.86 x10^3/uL (1.4-6.9); BASOPHIL % 0.7 % (0.0-0.4); Basophil (Absolute #) 0.08 x10^3/uL (0-0.4); Eosinophil % 1.5 % (0.00-5.0); Eosinophil (Absolute #) 0.18 x10^3/uL (0-0.5); Hematocrit 47.6 % (42-50); Hemoglobin 15.3 g/dL (12.5-18.0); IMMATURE GRAN # 0.12 x10^3u/L (0.00-0.03); Lymphocyte (Absolute #) 1.26 x10^3/uL (1.0-4.6); Lymphocytes % 10.3 % (24.0-44.0); Mean Cell Volume 88.1 fL (78-100); Mean Corpuscular Hemoglobin 28.3 pg (26-32); Mean Corpuscular Hgb Concent. 32.1 g/dL (32-36); Mean Platelet Volume 10.5 fL (7.5-11.0); Monocyte (Absolute #) 0.68 x10^3/uL (0.0-1.3); Monocytes % 5.6 % (0.0-12.0); Neutrophil % 80.9 % (36.0-66.0); Platelet Count 203 x10^3/uL (150-450); White Blood Count 12.2 x10^3/uL (4.0-10.5)
--- NOTE | 2023-02-09 10:25 | XRAY ---
Indication: Chest pain. Comparison: February 23, 2022 Portable chest unchanged again demonstrating CT proven left base pleural-parenchymal thickening. Remaining heart and lungs unremarkable again with CABG. Bony thorax intact with osteopenia and mild degenerative changes. No new/acute findings.
[2023-02-09 10:36] LABS: ALBUMIN 3.8 g/dL (3.5-5.0); ALKALINE PHOSPHATASE 88 U/L (38-126); ANION GAP 13.5 MEQ/L (5-15); BLOOD UREA NITROGEN 22 mg/dL (9-20); CHLORIDE 102 mmol/L (98-107); CK-Creatinine Phosphokinase 65 U/L (55-170); Calcium 8.9 mg/dL (8.4-10.2); Carbon Dioxide 26 mmol/L (22-30); Creatinine 1 0.86 mg/dL (0.66-1.25); EST GLOMERULAR FILTRATION RATE > 60.0 ML/MIN; Glucose 158 mg/dL (74-106); LIPASE 189 U/L (23-300); Potassium 4.2 mmol/L (3.5-5.1); SGOT/AST 37 U/L (17-59); SGPT/ALT 41 U/L (0-50); SODIUM 137 mmol/L (137-145); Total Protein 7.3 g/dL (6.3-8.2)
[2023-02-09 10:48] LABS: NT PRO BNPII 1320 pg/mL (<300); TROPONIN < 0.012 ng/mL (0.000-0.034)
--- NOTE | 2023-02-09 11:34 | ERPHSYRPT ---
- History of Present Illness Time Seen by Provider: 02/09/23 09:52 Source: patient Exam Limitations: no limitations Patient Subjective Stated Complaint: Chest pain Triage Nursing Assessment: Patient brought into ED per w/c and transferred self to bed. Patient A+O X 3. Patient's skin pink, warm and dry. Patient complains of mid chest pain 6/10 that started around 0930 while sitting at a restaurant. Patient complains of nausea this am, but denies it now or vomiting. Physician History: Patient is here with chest pain. Left-sided. Started at 9:30 AM. Patient does have a history of CABG. Follows with cardiology and Valerie Emmanuel. No fevers no chills no falls no trauma. Very slight shortness of breath associated with this. Chest pain has subsided. He is back to baseline at this point in time. Allergies/Adverse Reactions: Sulfa (Sulfonamide Antibiotics) [Sulfa(Sulfonamide Antibiotics)] Allergy (Unknown, Verified 02/09/23 10:13) Home Medications: Allopurinol 100 mg [Zyloprim 100 mg] 100 mg PO DAILY 02/05/21 [History] Allopurinol 300 mg [Zyloprim 300 mg] 300 mg PO DAILY 02/05/21 [History] Aspirin [Aspirin EC] 81 mg PO DAILY 02/05/21 [History] Carvedilol 3.125 mg [Coreg 3.125 MG] 3.125 mg PO BID 02/05/21 [History] Clopidogrel Bisulfate [PLAVIX Tablet] 75 mg PO DAILY 02/05/21 [History] Donepezil HCl [Donepezil HCl Odt] 5 mg PO HS 02/05/21 [History] Famotidine [Pepcid] 20 mg PO HS 02/05/21 [History] Gabapentin [Neurontin ] 100 mg PO DAILY 02/05/21 [History] Gabapentin [Neurontin ] 300 mg PO BID 02/05/21 [History] Multivitamin [Multiple Vitamins] 1 each PO DAILY 02/05/21 [History] Omeprazole 40 mg PO DAILY 02/05/21 [History] Paroxetine HCl 20 mg [Paxil 20 MG] 20 mg PO DAILY 02/05/21 [History] clonazePAM [Clonazepam] 0.25 mg PO BID 02/05/21 [History] Valsartan [Diovan] 40 mg PO DAILY 02/06/21 [History] Ropinirole HCl 1 mg PO HS 02/23/22 [History] Rosuvastatin Calcium 40 mg PO HS 02/23/22 [History] Spironolactone 25 mg [Aldactone 25 MG] 25 mg PO DAILY 02/23/22 [History] Sucralfate 1 gm [Carafate 1 GM] 1 gm PO BID 02/23/22 [History] Tamsulosin HCl 0.4 mg [Flomax 0.4 MG] 0.4 mg PO DAILY 02/23/22 [History] Torsemide 30 mg PO DAILY 02/23/22 [History] Hx Tetanus, Diphtheria Vaccination/Date Given: Yes Hx Influenza Vaccination/Date Given: No Hx Pneumococcal Vaccination/Date Given: No Immunizations Up to Date: Yes Travel Risk - International Travel Have you traveled outside of the country in past 3 weeks: No - Coronavirus Screening Are you exhibiting any of the following symptoms?: No Close contact with a COVID-19 positive Pt in past 14-21 Days: No - Vaccine Status Have you recieved a Covid-19 vaccination: Yes [employer] 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: 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 - Vaccination Dates Dates if Unknown: na - Review of Systems Constitutional: No Fever, No Chills Eyes: No Symptoms Ears, Nose, & Throat: No Symptoms Respiratory: Dyspnea, No Cough Cardiac: Chest Pain, No Edema, No Syncope Abdominal/Gastrointestinal: No Abdominal Pain, No Nausea, No Vomiting, No Diarrhea Genitourinary Symptoms: No Dysuria Musculoskeletal: No Back Pain, No Neck Pain Skin: No Rash Neurological: No Dizziness, No Focal Weakness, No Sensory Changes Psychological: No Symptoms Endocrine: No Symptoms All Other Systems: Reviewed and Negative - Past Medical History Pertinent Past Medical History: Yes Neurological History: TIA ENT History: No Pertinent History Cardiac History: Angina, Coronary Artery Disease, High Cholesterol, Hyper tension, Myocardial Infarction (MS) Respiratory History: COPD Endocrine Medical History: No Pertinent History Musculoskeletal History: Osteoarthritis GI Medical History: GERD History: No Pertinent History Psycho-Social History: No Pertinent History Male Reproductive Disorders: No Pertinent History Other Medical History: NOTED ABOVE; ALSO GERD. PSH: CARDIAC CATH W/ STENTS, CHOLECYSTECTOMY, BILATERAL MENISCUS SX, PARATHYROID REMOVAL - Past Surgical History Past Surgical History: Yes Neuro Surgical History: No Pertinent History Cardiac: CABG, Cardiac Catheterization, Cardiac Stent Respiratory: No Pertinent History Gastrointestinal: Cholecystectomy Genitourinary: No Pertinent History Musculoskeletal: No Pertinent History Male Surgical History: No Pertinent History Other Surgical History: bilat meniscus surgery, parathyroid removed - Social History Smoking Status: Former smoker Exposure to second hand smoke: Yes Drug Use: none Patient Lives Alone: No - Nursing Vital Signs Nursing Vital Signs: Initial Vital Signs Pulse Rate 66 02/09/23 10:01 Respiratory Rate 18 02/09/23 10:01 Blood Pressure 139/90 02/09/23 10:01 O2 Sat by Pulse Oximetry 93 L 02/09/23 10:01 Pain Scale Pain Intensity 0 - Physical Exam General Appearance: no apparent distress, alert Eye Exam: PERRL/EOMI, eyes nml inspection Ears, Nose, Throat Exam: normal ENT inspection, TMs normal, pharynx normal, moist mucous membranes Neck Exam: normal inspection, non-tender, supple, full range of motion Respiratory Exam: normal breath sounds, lungs clear, No respiratory distress Cardiovascular Exam: regular rate/rhythm, normal heart sounds, normal peripheral pulses Gastrointestinal/Abdomen Exam: soft, normal bowel sounds, No tenderness, No mass Back Exam: normal inspection, normal range of motion, No CVA tenderness, No vertebral tenderness Extremity Exam: normal inspection, normal range of motion, pelvis stable Neurologic Exam: alert, 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, cooperative, normal mood/affect, nml cerebellar function, nml station & gait, sensation nml, No motor deficits Skin Exam: normal color, warm, dry, No rash Lymphatic Exam: No adenopathy SpO2: 92 - Course Nursing assessment & vital signs reviewed: Yes EKG Interpreted by Me: Sinus Rhythm (Sinus rhythm several PVCs right bundle branch block no signs of acute ischemic changes) Ordered Tests: Active Orders 24 hr Category Date Time Status Engineer Chief STAT Care 02/09/23 10:02 Active Code Status Order ROUTINE Care 02/09/23 12:27 Active EKG-ER Only STAT Care 02/09/23 10:02 Active IV Care Q6H Care 02/09/23 12:[address] in Observation ROUTINE Care 02/09/23 12:27 Active Heart-Healthy Diet Diet 02/10/23 Breakfast Active CHEST 1 VIEW (PORTABLE) Stat Exams 02/09/23 10:02 Completed CHEST WITH CONTRAST [CT] Stat Exams 02/09/23 10:54 Completed CBC W DIFF Stat Lab 02/09/23 10:19 Completed CK-Creatinine Phosphokinase Stat Lab 02/09/23 10:19 Completed CMP Stat Lab 02/09/23 10:19 Completed D-DIMER QUANTITATIVE Stat Lab 02/09/23 10:19 Completed LIPASE Stat Lab 02/09/23 10:19 Completed NT PRO BNPII Stat Lab 02/09/23 10:19 Completed TROPONIN Q4H Lab 02/09/23 10:19 Completed TROPONIN Q4H Lab 02/09/23 14:15 Ordered TROPONIN Q4H Lab 02/09/23 18:15 Ordered Transfer Order Routine Transfer 02/09/23 Completed Medication Summary Discontinued Medications Generic Name Dose Route Start Last Admin Trade Name Freq PRN Reason Stop Dose Admin Aspirin 324 mg 02/09/23 10:02 02/09/23 10:08 Aspirin 81 Mg Tab.Chew PO 02/09/23 10:03 324 mg STAT ONE Administration Aspirin Confirm 02/09/23 10:07 Aspirin 81 Mg Tab.Chew Administered 02/09/23 10:08 Dose 324 mg .ROUTE .STK-MED ONE Lab/Rad Data: Laboratory Result Diagrams 02/09/23 10:19 02/09/23 10:19 Laboratory Results 02/09/23 02/09/23 02/09/23 Range/Units 10:19 10:19 10:19 WBC (4.0-10.5) x10^3/uL RBC (4.1-5.6) x10^6/uL Hgb (12.5-18.0) g/dL Hct (42-50) % MCV (78-100) fL MCH (26-32) pg MCHC (32-36) g/dL RDW (11.5-14.0) % Plt Count (150-450) x10^3/uL MPV (7.5-11.0) fL Gran % (36.0-66.0) % Immature Gran % (Auto) (0.00-0.4) % Nucleat RBC Rel Count (0.00-0.1) % Eos # (Auto) (0-0.5) x10^3/uL Immature Gran # (Auto) (0.00-0.03) x10^3u/L Absolute Lymphs (auto) (1.0-4.6) x10^3/uL Absolute Monos (auto) (0.0-1.3) x10^3/uL Absolute Nucleated RBC (0.00-0.01) x10^3u/L Lymphocytes % (24.0-44.0) % Monocytes % (0.0-12.0) % Eosinophils % (0.00-5.0) % Basophils % (0.0-0.4) % Absolute Granulocytes (1.4-6.9) x10^3/uL Basophils # (0-0.4) x10^3/uL D-Dimer 0.89 H* (0.0-0.50) mg/L Sodium 137 (137-145) mmol/L Potassium 4.2 (3.5-5.1) mmol/L Chloride 102 (98-107) mmol/L Carbon Dioxide 26 (22-30) mmol/L Anion Gap 13.5 (5-15) MEQ/L BUN 22 H (9-20) mg/dL Creatinine 0.86 (0.66-1.25) mg/dL Estimated GFR > 60.0 ML/MIN Glucose 158 H (74-106) mg/dL Calcium 8.9 (8.4-10.2) mg/dL Total Bilirubin 0.40 (0.2-1.3) mg/dL AST 37 (17-59) U/L ALT 41 (0-50) U/L Alkaline Phosphatase 88 (38-126) U/L Creatine Kinase 65 (55-170) U/L Troponin I < 0.012 (0.000-0.034) ng/mL NT-Pro-B Natriuret Pep 1320 (<300) pg/mL Serum Total Protein 7.3 (6.3-8.2) g/dL Albumin 3.8 (3.5-5.0) g/dL Lipase 189 (23-300) U/L 02/09/23 Range/Units 10:19 WBC 12.2 H (4.0-10.5) x10^3/uL RBC 5.40 (4.1-5.6) x10^6/uL Hgb 15.3 (12.5-18.0) g/dL Hct 47.6 (42-50) % MCV 88.1 (78-100) fL MCH 28.3 (26-32) pg MCHC 32.1 (32-36) g/dL RDW 14.0 (11.5-14.0) % Plt Count 203 (150-450) x10^3/uL MPV 10.5 (7.5-11.0) fL Gran % 80.9 H (36.0-66.0) % Immature Gran % (Auto) 1.0 H (0.00-0.4) % Nucleat RBC Rel Count 0.0 (0.00-0.1) % Eos # (Auto) 0.18 (0-0.5) x10^3/uL Immature Gran # (Auto) 0.12 H (0.00-0.03) x10^3u/L Absolute Lymphs (auto) 1.26 (1.0-4.6) x10^3/uL Absolute Monos (auto) 0.68 (0.0-1.3) x10^3/uL Absolute Nucleated RBC 0.00 (0.00-0.01) x10^3u/L Lymphocytes % 10.3 L (24.0-44.0) % Monocytes % 5.6 (0.0-12.0) % Eosinophils % 1.5 (0.00-5.0) % Basophils % 0.7 (0.0-0.4) % Absolute Granulocytes 9.86 H (1.4-6.9) x10^3/uL Basophils # 0.08 (0-0.4) x10^3/uL D-Dimer (0.0-0.50) mg/L Sodium (137-145) mmol/L Potassium (3.5-5.1) mmol/L Chloride (98-107) mmol/L Carbon Dioxide (22-30) mmol/L Anion Gap (5-15) MEQ/L BUN (9-20) mg/dL Creatinine (0.66-1.25) mg/dL Estimated GFR ML/MIN Glucose (74-106) mg/dL Calcium (8.4-10.2) mg/dL Total Bilirubin (0.2-1.3) mg/dL AST (17-59) U/L ALT (0-50) U/L Alkaline Phosphatase (38-126) U/L Creatine Kinase (55-170) U/L Troponin I (0.000-0.034) ng/mL NT-Pro-B Natriuret Pep (<300) pg/mL Serum Total Protein (6.3-8.2) g/dL Albumin (3.5-5.0) g/dL Lipase (23-300) U/L - Progress Progress: improved Progress Note: 02/09/23 11:34 differential diagnosis includes: PNA, STEMI, NSTEMI, other infection, musculoskeletal pain, pneumothorax, pulmonary embolism - We'll obtain basic labs, fluids, EKG, troponin, chest x-ray -First troponin negative. We will do a repeat troponin. D-dimer is positive therefore we will get a CTA of the chest - EKG shows no ST changes - my read. See full read below. - O2 saturations consistently greater than 95%. - CXR shows no pneumonia, pneumothorax - my read 02/09/23 14:01 Patient did have an elevated D-dimer therefore a CTA was obtained. This did show a new left-sided effusion, new increasing size of pulmonary nodule, previous scar tissue. Given all of this I do believe patient will need to be admitted to the hospital. Patient also has an elevated CHF peptide. We have never had an elevated CHF peptide this high before. Patient may have diastolic heart failure. I did discuss all this with the patient's meter record clerk, Dr. Tunde Mcfarland. He did feel the patient could be admitted here in [facility] for diuresis and, echocardiogram. He did not recommend transfer to [place]. Given all this I did discuss with on-call telemetry medicine, Dr. Trev Fitzgerald. He excepted the patient for admission to [facility]. I did discuss this with the family. They felt comfortable with this plan. Troponin negative, EKG shows no ST elevation. Plan for continued close inpatient monitoring. Counseled pt/family regarding: lab results, diagnosis, need for follow-up, rad results - Departure Departure Disposition: Observation Clinical Impression: Elevated brain natriuretic peptide (BNP) level, Shortness of breath, Chest pain Condition: Stable Critical Care Time: No
--- NOTE | 2023-02-09 11:37 | XRAY ---
Indication: Short of breath. Elevated d-dimer. Multiple contiguous axial images obtained through the chest using 80 cc Isovue 370 contrast and PE protocol. Comparison: February 23, 2022 Good opacification of the pulmonary arteries including lobar and segmental branches. Again no pulmonary embolus. Heart not enlarged again with CABG. Aorta remains minimally atherosclerotic without aneurysm/dissection. Stable small paratracheal and bilateral hilar calcified nodes. No pathologic mediastinal/hilar lymphadenopathy. Lungs again demonstrates mild scattered fibrosis/scarring and tiny calcified/noncalcified granulomas bilaterally. Interval worsening mild left base pleural effusion/thickening with also worsening compressive atelectasis. Previous 1.5 x 2.2 cm posterior lateral left lower lobe noncalcified nodule now measures 1.8 x 4.0 cm. Bony thorax intact again with osteopenia, flowing osteophytes throughout the spine, and sternotomy wires. Limited upper abdomen again demonstrates fatty liver, splenic calcific granulomas, and cholecystectomy clips. Impression: 1. Continued negative pulmonary embolus. 2. Enlarging indeterminate left lower lobe noncalcified nodule. Again PET/CT may yield further information if not already performed. 3. Worsening left lung base pleural effusion/thickening and compressive atelectasis. 4. Again chronic findings including fibrosis/scarring, chronic bony findings, fatty liver, and old granulomatous disease.
--- NOTE | 2023-02-09 16:10 | PCM.HP ---
History of Present Illness - Chief Complaint Chief Complaint: SOB, chest pain, chf exacerbation Date: 02/09/23 History of Present Illness: 68-year-old man with history of CAD status post CABG, HFpEF, ARACELI noncompliant with CPAP, HTN, GERD, and COPD, who presents with chest pain and dyspnea. Patient has sudden onset of left-sided chest pressure associated with dyspnea this morning at 9:30, lasting about 1-1/2 hours, not worsened by exertion or relieved by rest. No associated nausea, diaphoresis, or numbness. Has not had similar pain in the past. It was relieved on its own. However, he does note chronic orthopnea requiring him to sleep in a recliner. Denies change in leg edema, although it is present. Denies early satiety or PND. He follows with education assistant Dr. Mcfarland in [place], who spoke with the ED physician and said that he felt that patient likely had chronic diastolic heart failure. Patient is on torsemide at home, with which she has been compliant recently. No recent illness or fevers, but he did have some diaphoresis at night a few nights ago. He is a non-smoker, with a remote history of quitting over 15 years ago, but does have family history of CAD. Has been chest pain-free since arriving at the ED. - Review of Systems Constitutional: No Fever, No Chills, No Lethargy, No Malaise Eyes: No Symptoms Ears, Nose, & Throat: No Symptoms Respiratory: Orthopnea, Short Of Breath, No Cough, No Wheezing Cardiac: Chest Pain, Edema, No Palpitations, No Syncope, No PND Abdominal/Gastrointestinal: No Abdominal Pain, No Nausea, No Vomiting, No Diarrhea, No Constipation Genitourinary Symptoms: No Dysuria, No Frequency, No Hematuria Musculoskeletal: No Symptoms Skin: No Symptoms Neurological: Other (Sciatica) Psychological: No Symptoms Medications & Allergies Home Medications: Home Medication List Allopurinol 100 mg [Zyloprim 100 mg] 100 mg PO DAILY 02/05/21 [History Confirmed 02/09/23] Allopurinol 300 mg [Zyloprim 300 mg] 300 mg PO DAILY 02/05/21 [History Confirmed 02/09/23] Aspirin [Aspirin EC] 81 mg PO DAILY 02/05/21 [History Confirmed 02/09/23] Clopidogrel Bisulfate [PLAVIX Tablet] 75 mg PO DAILY 02/05/21 [History Confirmed 02/09/23] Famotidine [Pepcid] 20 mg PO HS 02/05/21 [History Confirmed 02/09/23] Gabapentin [Neurontin ] 100 mg PO BID 02/05/21 [History Confirmed 02/09/23] Gabapentin [Neurontin ] 300 mg PO BID 02/05/21 [History Confirmed 02/09/23] Multivitamin [Multiple Vitamins] 1 each PO DAILY 02/05/21 [History Confirmed 02/09/23] Omeprazole 40 mg PO DAILY 02/05/21 [History Confirmed 02/09/23] Paroxetine HCl 20 mg [Paxil 20 MG] 20 mg PO DAILY 02/05/21 [History Confirmed 02/09/23] clonazePAM [Clonazepam] 0.5 mg PO HS 02/05/21 [History Confirmed 02/09/23] Valsartan [Diovan] 40 mg PO DAILY 02/06/21 [History Confirmed 02/09/23] Ropinirole HCl 1 mg PO HS 02/23/22 [History Confirmed 02/09/23] Rosuvastatin Calcium 40 mg PO HS 02/23/22 [History Confirmed 02/09/23] Spironolactone 25 mg [Aldactone 25 MG] 25 mg PO DAILY 02/23/22 [History Confirmed 02/09/23] Sucralfate 1 gm [Carafate 1 GM] 1 gm PO BID 02/23/22 [History Confirmed 02/09/23] Tamsulosin HCl 0.4 mg [Flomax 0.4 MG] 0.4 mg PO DAILY 02/23/22 [History Confirmed 02/09/23] Torsemide 30 mg PO DAILY 02/23/22 [History Confirmed 02/09/23] Calcium Polycarbophil 625 mg [Fibercon 625 mg] 625 mg PO DAILY 02/09/23 [History Confirmed 02/09/23] Carvedilol 12.5 mg [Coreg 12.5 mg] 12.5 mg PO BID 02/09/23 [History Confirmed 02/09/23] Cetirizine HCl [Zyrtec] 10 mg PO DAILY 02/09/23 [History Confirmed 02/09/23] Cholecalciferol (Vitamin D3) [Vitamin D] 2,000 unit PO DAILY 02/09/23 [History Confirmed 02/09/23] Fluticasone/Umeclidin/Vilanter [Trelegy Ellipta 200-62.5-25] 1 puff IH DAILY 02/09/23 [History Confirmed 02/09/23] Folic Acid/Vit B Complex and C [Super B Complex Tablet] 1 tablet PO DAILY 02/09/23 [History Confirmed 02/09/23] [place]-3S/Dha/Epa/Fish Oil [Fish Oil [place]-3 Softgel] 3 cap PO DAILY 02/09/23 [History Confirmed 02/09/23] Saw [place] Fruit/Zinc Picoli [Saw [place] 450 mg Capsule] 450 mg PO DAILY 02/09/23 [History Confirmed 02/09/23] Semaglutide [Ozempic] 0.5 mg SQ UD 02/09/23 [History Confirmed 02/09/23] clonazePAM 0.5 tab PO DAILY 02/09/23 [History Confirmed 02/09/23] Allergies/Adverse Reactions: Allergies Allergy/AdvReac Type Severity Reaction Status Date / Time Sulfa (Sulfonamide Allergy Unknown Verified 02/09/23 10:13 Antibiotics) [Sulfa(Sulfonamide Antibiotics)] - Past Medical History Past Medical History: Yes Neurological History: TIA ENT History: No Pertinent History Cardiac History: Angina, Coronary Artery Disease, High Cholesterol, Hypertension, Myocardial Infarction ([place]) Respiratory History: COPD, Sleep Apnea (Noncompliant with CPAP) Endocrine Medical History: No Pertinent History Musculoskelatal History: Osteoarthritis GI Medical History: GERD History: No Pertinent History Pyscho-Social History: No Pertinent History Male Reproductive Disorders: No Pertinent History Comment: NOTED ABOVE; ALSO GERD. PSH: CARDIAC CATH W/ STENTS, CHOLECYSTECTOMY, BILATERAL MENISCUS SX, PARATHYROID REMOVAL - Past Surgical History Past Surgical History: Yes Neuro Surgical History: No Pertinent History Cardiac History: CABG, Cardiac Catheterization, Cardiac Stent Respiratory Surgery: No Pertinent History GI Surgical History: Cholecystectomy Genitourinary Surgical Hx: No Pertinent History Musculskeletal Surgical Hx: No Pertinent History Male Surgical History: No Pertinent History Other Surgical History: bilat meniscus surgery, parathyroid removed - Social History Smoking Status: Former smoker Exposure to second hand smoke: Yes Alcohol: Rarely Drug Use: none Significant Family History: heart disease - Physical Exam Vital Signs: Vital Signs - 24 hr Temp Pulse Resp BP BP Pulse Ox 02/09/23 16:00 97.5 F 63 19 149/88 92 L 02/09/23 14:04 92 L 02/09/23 13:31 98.7 F 67 20 144/94 93 L 02/09/23 13:17 98.2 F 67 20 144/94 96 02/09/23 13:16 98.2 F 67 20 144/94 96 02/09/23 12:01 17 115/63 96 02/09/23 11:31 64 12 144/74 93 L 02/09/23 11:28 21 143/83 02/09/23 11:02 128/97 02/09/23 10:31 67 17 141/80 92 L 02/09/23 10:14 97.3 F 65 16 139/90 94 L 02/09/23 10:01 66 18 139/90 93 L General Appearance: no apparent distress Neurologic Exam: alert, 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, normal mood/affect Respiratory Exam: normal breath sounds, lungs clear, No respiratory distress, No accessory muscle use Cardiovascular Exam: regular rate/rhythm, normal heart sounds, edema (Mild pitting edema to the ankles bilaterally), No murmur, No gallop Gastrointestinal/Abdomen Exam: soft, No tenderness, No distention Results - Labs Lab/Micro Results: Lab Results-Last 24 Hours 02/09/23 02/09/23 02/09/23 Range/Units 10:19 10:19 10:19 WBC 12.2 H (4.0-10.5) x10^3/uL RBC 5.40 (4.1-5.6) x10^6/uL Hgb 15.3 (12.5-18.0) g/dL Hct 47.6 (42-50) % MCV 88.1 (78-100) fL MCH 28.3 (26-32) pg MCHC 32.1 (32-36) g/dL RDW 14.0 (11.5-14.0) % Plt Count 203 (150-450) x10^3/uL MPV 10.5 (7.5-11.0) fL Gran % 80.9 H (36.0-66.0) % Immature Gran % (Auto) 1.0 H (0.00-0.4) % Nucleat RBC Rel Count 0.0 (0.00-0.1) % Eos # (Auto) 0.18 (0-0.5) x10^3/uL Immature Gran # (Auto) 0.12 H (0.00-0.03) x10^3u/L Absolute Lymphs (auto) 1.26 (1.0-4.6) x10^3/uL Absolute Monos (auto) 0.68 (0.0-1.3) x10^3/uL Absolute Nucleated RBC 0.00 (0.00-0.01) x10^3u/L Lymphocytes % 10.3 L (24.0-44.0) % Monocytes % 5.6 (0.0-12.0) % Eosinophils % 1.5 (0.00-5.0) % Basophils % 0.7 (0.0-0.4) % Absolute Granulocytes 9.86 H (1.4-6.9) x10^3/uL Basophils # 0.08 (0-0.4) x10^3/uL D-Dimer 0.89 H* (0.0-0.50) mg/L Sodium 137 (137-145) mmol/L Potassium 4.2 (3.5-5.1) mmol/L Chloride 102 (98-107) mmol/L Carbon Dioxide 26 (22-30) mmol/L Anion Gap 13.5 (5-15) MEQ/L BUN 22 H (9-20) mg/dL Creatinine 0.86 (0.66-1.25) mg/dL Estimated GFR > 60.0 ML/MIN Glucose 158 H (74-106) mg/dL Calcium 8.9 (8.4-10.2) mg/dL Total Bilirubin 0.40 (0.2-1.3) mg/dL AST 37 (17-59) U/L ALT 41 (0-50) U/L Alkaline Phosphatase 88 (38-126) U/L Creatine Kinase 65 (55-170) U/L Troponin I (0.000-0.034) ng/mL NT-Pro-B Natriuret Pep (<300) pg/mL Serum Total Protein 7.3 (6.3-8.2) g/dL Albumin 3.8 (3.5-5.0) g/dL Lipase 189 (23-300) U/L 02/09/23 02/09/23 Range/Units 10:19 15:00 WBC (4.0-10.5) x10^3/uL RBC (4.1-5.6) x10^6/uL Hgb (12.5-18.0) g/dL Hct (42-50) % MCV (78-100) fL MCH (26-32) pg MCHC (32-36) g/dL RDW (11.5-14.0) % Plt Count (150-450) x10^3/uL MPV (7.5-11.0) fL Gran % (36.0-66.0) % Immature Gran % (Auto) (0.00-0.4) % Nucleat RBC Rel Count (0.00-0.1) % Eos # (Auto) (0-0.5) x10^3/uL Immature Gran # (Auto) (0.00-0.03) x10^3u/L Absolute Lymphs (auto) (1.0-4.6) x10^3/uL Absolute Monos (auto) (0.0-1.3) x10^3/uL Absolute Nucleated RBC (0.00-0.01) x10^3u/L Lymphocytes % (24.0-44.0) % Monocytes % (0.0-12.0) % Eosinophils % (0.00-5.0) % Basophils % (0.0-0.4) % Absolute Granulocytes (1.4-6.9) x10^3/uL Basophils # (0-0.4) x10^3/uL D-Dimer (0.0-0.50) mg/L Sodium (137-145) mmol/L Potassium (3.5-5.1) mmol/L Chloride (98-107) mmol/L Carbon Dioxide (22-30) mmol/L Anion Gap (5-15) MEQ/L BUN (9-20) mg/dL Creatinine (0.66-1.25) mg/dL Estimated GFR ML/MIN Glucose (74-106) mg/dL Calcium (8.4-10.2) mg/dL Total Bilirubin (0.2-1.3) mg/dL AST (17-59) U/L ALT (0-50) U/L Alkaline Phosphatase (38-126) U/L Creatine Kinase (55-170) U/L Troponin I < 0.012 < 0.012 (0.000-0.034) ng/mL NT-Pro-B Natriuret Pep 1320 (<300) pg/mL Serum Total Protein (6.3-8.2) g/dL Albumin (3.5-5.0) g/dL Lipase (23-300) U/L - Radiology Impressions Radiology Exams & Impressions: Radiology Procedures Category Date Time Status CHEST 1 VIEW (PORTABLE) Stat Exams 02/09/23 10:02 Completed CHEST WITH CONTRAST [CT] Stat Exams 02/09/23 10:54 Completed ECHO W/2D AND DOPPLER [US] Routine Exams 02/09/23 16:[address]: Negative for pulmonary embolus. Slight worsening of mild left lung base pleural thickening with compressive adjacent atelectasis. Unchanged scattered fibrosis and scarring and tiny calcified granulomas bilaterally. Enlarging left lower lobe noncalcified nodule, previously 1.5 x 2.2 cm, now 1.8 x 4 cm. Assessment/Plan (1) Chest pain Current Visit: Yes Status: Acute Assessment & Plan: 68-year-old man with history of CAD, ARACELI not on CPAP, hypertension, COPD, and GERD, here with chest pain as well as some mild orthopnea and CHF exacerbation. ## Chest pain atypical for coronary pain, and not like his prior pain leading to his CABG. Initial troponins are negative x2, and EKG is unrevealing. CT chest shows only his prior left pleural-based thickening that is mildly worse. Admit under observation Follow on telemetry Check serial troponins If all negative, will likely follow-up with his education assistant Dr. Veto Mcfarland in [place] ## Acute on chronic diastolic heart failure Per patient's education assistant, patient appears to have HFpEF. He is already on torsemide at home. Has elevation in BNP, prior was 370, now up to 1320. Has orthopnea and mild pitting ankle edema, but this appears to be close to his baseline. ED physician spoke to patient's education assistant Dr. Mcfarland, and last echocardiogram was over 2 years ago. Give Lasix 40 mg IV today Resume his home spironolactone 25 Afterload reduction with his home carvedilol 12.5, valsartan 40 Check echocardiogram We will follow-up with his education assistant as an outpatient after discharge ## Hypertension blood pressure fairly controlled currently. Resume home Coreg 12.5, valsartan 40 ## CAD status post CABG previously. Resume home Crestor 40, Plavix 75, aspirin 81, Coreg 12.5 ## Anxiety Resume home Paxil 20 mg, Klonopin BID CODE STATUS: Full code Prophylaxis: Lovenox 40 Dispo: Likely home tomorrow if pain resolved, negative troponins Entirety of encounter took place via telemedicine. Patient consented to telemedicine. Code(s): R07.9 - CHEST PAIN, UNSPECIFIED Telemedicine Encounter - Telemedicine Encounter Telemedicine Encounter: The entirety of this encounter was performed via Telemedicine"
[2023-02-09] MEDS ORDERED: MEDICATION INTERVENTION MC SCH ×2 (16:30)
[2023-02-09] MEDS: Lasix 40 MG/4 ML IV SCH (17:01)
[2023-02-09] MEDS: Carafate 1 GM PO SCH (21:15)
[2023-02-09] MEDS: COREG 12.5 MG PO SCH (21:15)
[2023-02-09] MEDS: Neurontin PO SCH (21:16)
[2023-02-09] MEDS ORDERED: Neurontin PO SCH (22:00)
[2023-02-09] MEDS ORDERED: NON-FORMULARY ITEM (Rosuvastatin Calcium [Rosuvastatin Calcium] 40 MG Tablet) PO SCH (22:00)
[2023-02-09] MEDS ORDERED: NON-FORMULARY ITEM (Famotidine [Pepcid] 40 MG Tablet) PO SCH (22:00)
[2023-02-09] MEDS ORDERED: NEURONTIN PO SCH (22:00)
[2023-02-09] MEDS ORDERED: REQUIP 2MG TAB PO SCH (22:00)
[2023-02-09] MEDS ORDERED: ZOCOR 20MG PO SCH (22:00)
[2023-02-09] MEDS ORDERED: Pepcid 20 MG PO SCH (22:00)
[2023-02-09] MEDS ORDERED: clonazePAM PO SCH (22:00)
[2023-02-09] MEDS ORDERED: NON-FORMULARY ITEM (Ropinirole Hcl [Ropinirole Hcl] 1 MG Tablet) PO SCH (22:00)
[2023-02-09] MEDS ORDERED: ECOTRIN 81 MG PO SCH (22:00)
[2023-02-10 05:58] LABS: Hematocrit 48.3 % (42-50); Hemoglobin 15.5 g/dL (12.5-18.0); Mean Cell Volume 88.8 fL (78-100); Mean Corpuscular Hemoglobin 28.5 pg (26-32); Mean Corpuscular Hgb Concent. 32.1 g/dL (32-36); Mean Platelet Volume 11.1 fL (7.5-11.0); Platelet Count 197 x10^3/uL (150-450); Red Blood Count 5.44 x10^6/uL (4.1-5.6); Red Cell Distribution Width 14.5 % (11.5-14.0); White Blood Count 10.5 x10^3/uL (4.0-10.5)
[2023-02-10 06:03] LABS: ANION GAP 11.4 MEQ/L (5-15); BLOOD UREA NITROGEN 22 mg/dL (9-20); CHLORIDE 100 mmol/L (98-107); Calcium 8.9 mg/dL (8.4-10.2); Carbon Dioxide 30 mmol/L (22-30); Cholesterol 210 mg/dL (50-200); Creatinine 1 1.01 mg/dL (0.66-1.25); EST GLOMERULAR FILTRATION RATE > 60.0 ML/MIN; Glucose 155 mg/dL (74-106); HDL CHOLESTEROL 42 mg/dL (40-60); LDL, DIRECT 120 mg/dL (30-100); Potassium 3.9 mmol/L (3.5-5.1); SODIUM 138 mmol/L (137-145); TRIGLYCERIDE 153 mg/dL (30-150)
[2023-02-10] MEDS ORDERED: ULTRAM 50 MG PO PRN (08:04)
[2023-02-10] MEDS ORDERED: TYLENOL 325 MG PO PRN (08:04)
[2023-02-10] MEDS: COREG 12.5 MG PO SCH (08:54)
[2023-02-10] MEDS: Carafate 1 GM PO SCH (08:55)
[2023-02-10] MEDS: Neurontin PO SCH (08:55)
[2023-02-10] MEDS: Lasix 40 MG/4 ML IV SCH (08:56)
[2023-02-10] MEDS ORDERED: Protonix 40MG Tablet PO SCH (10:00)
[2023-02-10] MEDS ORDERED: VITAMIN D PO SCH (10:00)
[2023-02-10] MEDS ORDERED: NON-FORMULARY ITEM (Fluticasone/Umeclidin/Vilanter [Trelegy Ellipta 200-62.5-25] 1 EACH Bl IH SCH (10:00)
[2023-02-10] MEDS ORDERED: FIBERCON 625 MG PO SCH (10:00)
[2023-02-10] MEDS ORDERED: ZYLOPRIM 100 MG PO SCH (10:00)
[2023-02-10] MEDS ORDERED: Aldactone 25 MG PO SCH (10:00)
[2023-02-10] MEDS ORDERED: Flomax 0.4 MG PO SCH (10:00)
[2023-02-10] MEDS ORDERED: [UNRECOGNIZED DRUG - OTHER] PO SCH (10:00)
[2023-02-10] MEDS ORDERED: NON-FORMULARY ITEM (Cetirizine Hcl [Zyrtec] 10 MG Capsule) PO SCH (10:00)
[2023-02-10] MEDS ORDERED: DIOVAN 80 MG PO SCH (10:00)
[2023-02-10] MEDS ORDERED: THERAGRAN MULTIVITAMIN PO SCH (10:00)
[2023-02-10] MEDS ORDERED: EPA PO SCH (10:00)
[2023-02-10] MEDS ORDERED: Paxil 20 MG PO SCH (10:00)
[2023-02-10] MEDS ORDERED: CLARITIN 10 MG PO SCH (10:00)
[2023-02-10] MEDS ORDERED: ZINC PICOLI PO SCH (10:00)
[2023-02-10] MEDS ORDERED: SAW PALMETTO FRUIT PO SCH (10:00)
[2023-02-10] MEDS ORDERED: [UNRECOGNIZED DRUG - OTHER] PO SCH (10:00)
[2023-02-10] MEDS ORDERED: clonazePAM PO SCH ×2 (10:00)
[2023-02-10] MEDS ORDERED: NON-FORMULARY ITEM (Omeprazole [Omeprazole] 40 MG Capsule.Dr) PO SCH (10:00)
[2023-02-10] MEDS ORDERED: DHA PO SCH (10:00)
[2023-02-10] MEDS ORDERED: ZYLOPRIM 300 MG PO SCH (10:00)
[2023-02-10] MEDS ORDERED: OMEGA PO SCH (10:00)
[2023-02-10] MEDS ORDERED: PLAVIX Tablet PO SCH (10:00)
[2023-02-10] MEDS ORDERED: ENOXAPARIN SODIUM SQ SCH (10:00)
[2023-02-10] MEDS ORDERED: FISH OIL PO SCH (10:00)
[2023-02-10] MEDS ORDERED: VALSARTAN 40 MG PO SCH (10:00)
[2023-02-10] MEDS ORDERED: VITA-BEE WITH C PO SCH (10:00)
[2023-02-10] MEDS ORDERED: NON-FORMULARY ITEM (Multivitamin [Multiple Vitamins] 1 EACH Tablet) PO SCH (10:00)
[2023-02-10] MEDS ORDERED: FISH OIL 1,000 MG CAPSULE PO SCH (10:00)
[2023-02-10 11:37] VITALS: BP 133/77; PULSE 61; O2SAT 93
--- NOTE | 2023-02-10 11:46 | PCM.DS ---
Discharge Summary Date of Admission: 02/09/23 13:06 Date of Discharge: 02/10/2023 Admitting Physician: ALEXA GALLEGOS MD Consults: Consults on Case 02/09/23 16:01 Nutritional Consult ROUTINE Primary Care Provider: MACY PADILLA Allergies Allergies Sulfa (Sulfonamide Antibiotics) [Sulfa(Sulfonamide Antibiotics)] Allergy (Unknown, Verified 02/09/23 10:13) Hospital Summary - Hospital Course Hospital Course: 68-year-old with history of CAD, HFpEF, ARACELI, hypertension, GERD, and COPD, who presented with sudden onset of left-sided chest pain associated with dyspnea, lasting about 1-1/2 hours. No associated symptoms. However, he complains of chronic orthopnea and leg edema. The ED physician spoke to patient's dust mill operator Dr. Mcfarland, who noted that last echocardiogram was 2 years ago, but suspect patient has diastolic heart failure. Patient was admitted under observation. Serial EKGs and troponins were negative for ischemic changes. He was given IV Lasix, with good urine output. He noted his leg edema had improved. He remained on room air. He was able to ambulate, with no further chest pain. He will resume his home torsemide, and follow-up with Dr. Mcfarland. We were able to obtain echocardiogram, but the results would not be able for a few days. This can be sent to patient's dust mill operator for further evaluation. Of note, patient had incidental finding of a left lower lobe lung nodule. This has increased in size from 1.8 cm x 2.2 cm in February 2022, to 2 x 4 cm currently. Per patient, this was being evaluated by pulmonary Dr. Valdes, but patient needed to get imaging beforehand. He had not yet gotten this imaging done, and he missed an appointment. He has not rescheduled imaging. Patient was encouraged to get this followed up, and contact Dr. Valdes's office again to get imaging and follow-up done. Entirety of encounter took place via telemedicine. Patient consented to telemedicine. Greater than 30 minutes managing discharge. - Vitals & Intake/Output Vital Signs: Vital Signs Temperature 97.5 F 02/10/23 11:36 Pulse Rate 61 02/10/23 11:36 Respiratory Rate 16 02/10/23 11:36 Blood Pressure 133/77 02/10/23 11:36 O2 Sat by Pulse Oximetry 93 L 02/10/23 11:36 Intake & Output: Intake & Output 02/07/23 02/08/23 02/09/23 02/10/23 11:59 11:59 11:59 11:59 Intake Total 1280 Output Total 4850 Balance -3570 Weight 153.1 kg 150 kg - Lab Result Diagrams: 02/10/23 04:41 02/10/23 04:41 Lab Results-Last 24 Hrs: Lab Results-Last 24 Hours 02/09/23 02/09/23 02/10/23 Range/Units 15:00 18:09 04:41 WBC 10.5 (4.0-10.5) x10^3/uL RBC 5.44 (4.1-5.6) x10^6/uL Hgb 15.5 (12.5-18.0) g/dL Hct 48.3 (42-50) % MCV 88.8 (78-100) fL MCH 28.5 (26-32) pg MCHC 32.1 (32-36) g/dL RDW 14.5 H (11.5-14.0) % Plt Count 197 (150-450) x10^3/uL MPV 11.1 H (7.5-11.0) fL Sodium (137-145) mmol/L Potassium (3.5-5.1) mmol/L Chloride (98-107) mmol/L Carbon Dioxide (22-30) mmol/L Anion Gap (5-15) MEQ/L BUN (9-20) mg/dL Creatinine (0.66-1.25) mg/dL Estimated GFR ML/MIN Glucose (74-106) mg/dL Calcium (8.4-10.2) mg/dL Troponin I < 0.012 < 0.012 (0.000-0.034) ng/mL Triglycerides (30-150) mg/dL Cholesterol (50-200) mg/dL LDL Cholesterol (30-100) mg/dL HDL Cholesterol (40-60) mg/dL Heart Disease Risk Ratio 02/10/23 Range/Units 04:41 WBC (4.0-10.5) x10^3/uL RBC (4.1-5.6) x10^6/uL Hgb (12.5-18.0) g/dL Hct (42-50) % MCV (78-100) fL MCH (26-32) pg MCHC (32-36) g/dL RDW (11.5-14.0) % Plt Count (150-450) x10^3/uL MPV (7.5-11.0) fL Sodium 138 (137-145) mmol/L Potassium 3.9 (3.5-5.1) mmol/L Chloride 100 (98-107) mmol/L Carbon Dioxide 30 (22-30) mmol/L Anion Gap 11.4 (5-15) MEQ/L BUN 22 H (9-20) mg/dL Creatinine 1.01 (0.66-1.25) mg/dL Estimated GFR > 60.0 ML/MIN Glucose 155 H (74-106) mg/dL Calcium 8.9 (8.4-10.2) mg/dL Troponin I (0.000-0.034) ng/mL Triglycerides 153 H (30-150) mg/dL Cholesterol 210 H (50-200) mg/dL LDL Cholesterol 120 H (30-100) mg/dL HDL Cholesterol 42 (40-60) mg/dL Heart Disease Risk Ratio 5.0 - Radiology Exams Ordered Rad Exams-Entire Visit: Radiology Procedures Category Date Time Status CHEST 1 VIEW (PORTABLE) Stat Exams 02/09/23 10:02 Completed CHEST WITH CONTRAST [CT] Stat Exams 02/09/23 10:54 Completed ECHO W/2D AND DOPPLER [US] Routine Exams 02/10/23 16:02 Taken - Procedures and Test Procedures and Tests throughout Hospitalization: Therapy Orders & Screens 02/10/23 08:09 Respiratory Therapy Assessment DAILY Comment: Diagnosis: SOB, chest pain, chf exacerbation Discharge Exam General Appearance: no apparent distress Neurologic Exam: alert, 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, normal mood/affect Eye Exam: eyes nml inspection Respiratory Exam: normal breath sounds, lungs clear, No diminished breath sounds, No accessory muscle use Cardiovascular Exam: regular rate/rhythm, normal heart sounds, No murmur, No edema Gastrointestinal/Abdomen Exam: soft, No tenderness, No distention Final Diagnosis/Problem List - Final Discharge Diagnosis/Problem (1) Chest pain Current Visit: Yes Status: Acute Code(s): R07.9 - CHEST PAIN, UNSPECIFIED (2) CHF (congestive heart failure) Current Visit: Yes Status: Acute Code(s): I50.9 - HEART FAILURE, UNSPECIFIED (3) Hypertension Current Visit: No Status: Acute Code(s): I10 - ESSENTIAL (PRIMARY) HYPER TENSION Telemedicine Encounter - Telemedicine Encounter Telemedicine Encounter: The entirety of this encounter was performed via Telemedicine" - Discharge Disposition: Home, Self-Care Condition: Stable Prescriptions: No Action Clopidogrel Bisulfate [PLAVIX Tablet] 75 mg PO DAILY Aspirin [Aspirin EC] 81 mg PO DAILY Paroxetine HCl 20 mg [Paxil 20 MG] 20 mg PO DAILY Omeprazole 40 mg PO DAILY Multivitamin [Multiple Vitamins] 1 each PO DAILY Gabapentin [Neurontin ] 300 mg PO BID Gabapentin [Neurontin ] 100 mg PO BID Famotidine [Pepcid] 20 mg PO HS clonazePAM [Clonazepam] 0.5 mg PO HS Allopurinol 300 mg [Zyloprim 300 mg] 300 mg PO DAILY Allopurinol 100 mg [Zyloprim 100 mg] 100 mg PO DAILY Valsartan [Diovan] 40 mg PO DAILY Ropinirole HCl 1 mg PO HS Torsemide 30 mg PO DAILY Tamsulosin HCl 0.4 mg [Flomax 0.4 MG] 0.4 mg PO DAILY Sucralfate 1 gm [Carafate 1 GM] 1 gm PO BID Spironolactone 25 mg [Aldactone 25 MG] 25 mg PO DAILY Rosuvastatin Calcium 40 mg PO HS [place] Fruit/Zinc [place] [[place] 450 mg Capsule] 450 mg PO DAILY Cholecalciferol (Vitamin D3) [Vitamin D] 2,000 unit PO DAILY [place]-3S/Dha/Epa/Fish Oil [Fish Oil [place]-3 Softgel] 3 cap PO DAILY Calcium Polycarbophil 625 mg [Fibercon 625 mg] 625 mg PO DAILY clonazePAM 0.25 mg PO DAILY Cetirizine HCl [Zyrtec] 10 mg PO DAILY Carvedilol 12.5 mg [Coreg 12.5 mg] 12.5 mg PO BID Folic Acid/Vit B Complex and C [Super B Complex Tablet] 1 tablet PO DAILY Semaglutide [Ozempic] 0.5 mg SQ UD Fluticasone/Umeclidin/Vilanter [Trelegy Ellipta 200-62.5-25] 1 puff IH DAILY Instructions: Low Cholesterol, Saturated Fat, and Trans Fat Diet , Heart Failure, Adult (DC), Chest Pain (DC), High Cholesterol (DC) Follow up with: SAMM VALDES [ACTIVE STAFF] - 02/15/23 2:25 pm () MACY PADILLA MD [Primary Care Provider] - 02/17/23 3:30 pm DEL MCFARLAND [NON-STAFF PHY W/O PRIVILEGES] - 02/16/23 9:30 am Forms: Discharge Instructions
--- NOTE | 2023-02-11 09:31 | ECHO ---
Transthoracic echocardiographic examination and color Doppler was done on 02/10/2023. INDICATION: Congestive heart failure. IMPRESSION: THE STUDY IS SOMEWHAT LIMITED WHICH PRECLUDES ADEQUATE ASSESSMENT OF INTRACARDIAC ANATOMY AND PHYSIOLOGY. The left ventricle is only partially visualized. Estimated global left ventricular ejection fraction of around 50 to 55%. There appears to be some degree of left ventricular hypertrophy. The mitral valve is seen and this appears to open adequately. The left atrium appears to be enlarged. The aortic valve was not well visualized. Doppler study did not show any evidence of significant gradient across the left ventricular outflow tract. The right side chambers are visualized.
== END 2023-02-10 13:38 | disposition home or self-care (01) ==
LOC: ED 09:44 → MED SURG 13:06
PROVIDERS: ADMIT Internal Medicine; ATTEND Family Medicine
DX: R07.9 Chest pain, unspecified (principal); I11.0 Hypertensive heart disease with heart failure; I50.9 Heart failure, unspecified; I25.10 Atherosclerotic heart disease of native coronary artery without angina pectoris; E78.5 Hyperlipidemia, unspecified; J44.9 Chronic obstructive pulmonary disease, unspecified; R60.0 Localized edema; R91.1 Solitary pulmonary nodule; Z79.01 Long term (current) use of anticoagulants; Z79.899 Other long term (current) drug therapy; Z20.828 Contact with and (suspected) exposure to other viral communicable diseases; Z95.1 Presence of aortocoronary bypass graft
CPT/HCPCS: 36000; 36415; 71045; 71260; 80048; 80053; 80061; 82550; 83690; 83721; 83880; 84484; 85025; 85027; 85379; 93005; 93041; 93306; 94760; 94762; 99285; Q3014; 93268; J1650; J1940; A9270-GY; G0378

== ENCOUNTER 2023-04-05 09:21 | Emergency (ER) | payer MEDICARE, OTHER ==
[2023-04-05 09:36] VITALS: RESP 20; TEMP 97
[2023-04-05] MEDS ORDERED: DECADRON 10MG INJ. IM ONE (10:03)
[2023-04-05] MEDS ORDERED: TORAdol 30 mg Injection IM ONE (10:04)
--- NOTE | 2023-04-05 10:13 | ERPHSYRPT ---
- History of Present Illness Time Seen by Provider: 04/05/23 10:07 Source: patient Exam Limitations: no limitations Patient Subjective Stated Complaint: Pt states "I have pain in my right lower back that goes down to my right heel. Triage Nursing Assessment: Pt presented alert and oriented X 3, skin pwd. Pt ambulates with a slow gait. Pt laying comfortably on the bed. Physician History: Patient is 68-year-old male presents to our ED with acute on chronic low back pain/sciatica. Patient states his back pain radiates down to his right leg into his heel. Patient has seen a chiropractor in the past for the same. Patient's BMI is 47.8. Vital stable. No associated nausea vomiting or diaphoresis. No trauma. No fever. No recent back procedures. No saddle anesthesia. Symptoms are constant. Symptoms are moderate in intensity. No specific worsening or improving factors. No associated urinary symptomology. Patient otherwise feels well. He voices no other complaints or concerns at this time. Portions of this note were created with voice recognition technology. There may be grammatical, spelling, punctuation or sound alike errors Timing/Duration: today Severity: moderate Modifying Factors: Improves With: movement Associated Symptoms: denies symptoms Allergies/Adverse Reactions: Sulfa (Sulfonamide Antibiotics) [Sulfa(Sulfonamide Antibiotics)] Allergy (Unknown, Verified 02/09/23 10:13) Home Medications: Allopurinol 100 mg [Zyloprim 100 mg] 100 mg PO DAILY 02/05/21 [History] Allopurinol 300 mg [Zyloprim 300 mg] 300 mg PO DAILY 02/05/21 [History] Aspirin [Aspirin EC] 81 mg PO DAILY 02/05/21 [History] Clopidogrel Bisulfate [PLAVIX Tablet] 75 mg PO DAILY 02/05/21 [History] Famotidine [Pepcid] 20 mg PO HS 02/05/21 [History] Gabapentin [Neurontin ] 100 mg PO BID 02/05/21 [History] Gabapentin [Neurontin ] 300 mg PO BID 02/05/21 [History] Multivitamin [Multiple Vitamins] 1 each PO DAILY 02/05/21 [History] Omeprazole 40 mg PO DAILY 02/05/21 [History] Paroxetine HCl 20 mg [Paxil 20 MG] 20 mg PO DAILY 02/05/21 [History] clonazePAM [Clonazepam] 0.5 mg PO HS 02/05/21 [History] Valsartan [Diovan] 40 mg PO DAILY 02/06/21 [History] Ropinirole HCl 1 mg PO HS 02/23/22 [History] Rosuvastatin Calcium 40 mg PO HS 02/23/22 [History] Spironolactone 25 mg [Aldactone 25 MG] 25 mg PO DAILY 02/23/22 [History] Sucralfate 1 gm [Carafate 1 GM] 1 gm PO BID 02/23/22 [History] Tamsulosin HCl 0.4 mg [Flomax 0.4 MG] 0.4 mg PO DAILY 02/23/22 [History] Torsemide 30 mg PO DAILY 02/23/22 [History] Calcium Polycarbophil 625 mg [Fibercon 625 mg] 625 mg PO DAILY 02/09/23 [History] Carvedilol 12.5 mg [Coreg 12.5 mg] 12.5 mg PO BID 02/09/23 [History] Cetirizine HCl [Zyrtec] 10 mg PO DAILY 02/09/23 [History] Cholecalciferol (Vitamin D3) [Vitamin D] 2,000 unit PO DAILY 02/09/23 [History] Fluticasone/Umeclidin/Vilanter [Trelegy Ellipta 200-62.5-25] 1 puff IH DAILY 02/09/23 [History] Folic Acid/Vit B Complex and C [Super B Complex Tablet] 1 tablet PO DAILY 02/09/23 [History] [place]-3S/Dha/Epa/Fish Oil [Fish Oil [place]-3 Softgel] 3 cap PO DAILY 02/09/23 [History] [place] Fruit/Zinc Picoli [[place] 450 mg Capsule] 450 mg PO DAILY 02/09/23 [History] Semaglutide [Ozempic] 0.5 mg SQ UD 02/09/23 [History] clonazePAM 0.25 mg PO DAILY 02/09/23 [History] Hx Tetanus, Diphtheria Vaccination/Date Given: Yes Hx Influenza Vaccination/Date Given: No Hx Pneumococcal Vaccination/Date Given: No Travel Risk - International Travel Have you traveled outside of the country in past 3 weeks: No - Coronavirus Screening Are you exhibiting any of the following symptoms?: No Close contact with a COVID-19 positive Pt in past 14-21 Days: No - Vaccine Status Have you recieved a Covid-19 vaccination: Yes [employer]: Unknown - Vaccination Dates Dates if Unknown: na - Review of Systems Constitutional: No Symptoms, No Fever, No Chills Eyes: No Symptoms Ears, Nose, & Throat: No Symptoms Respiratory: No Symptoms, No Cough, No Dyspnea Cardiac: No Symptoms, No Chest Pain, No Edema, No Syncope Abdominal/Gastrointestinal: No Symptoms, No Abdominal Pain, No Nausea, No Vomiting, No Diarrhea Genitourinary Symptoms: No Symptoms, No Dysuria Musculoskeletal: No Symptoms, No Back Pain, No Neck Pain Skin: No Symptoms, No Rash Neurological: No Symptoms, No Dizziness, No Focal Weakness, No Sensory Changes Psychological: No Symptoms Endocrine: No Symptoms Hematologic/Lymphatic: No Symptoms Immunological/Allergic: No Symptoms All Other Systems: Reviewed and Negative - Past Medical History Pertinent Past Medical History: Yes Neurological History: TIA ENT History: No Pertinent History Cardiac History: Angina, Coronary Artery Disease, High Cholesterol, Hypertension, Myocardial Infarction ([place]) Respiratory History: COPD, Sleep Apnea Endocrine Medical History: No Pertinent History Musculoskeletal History: Osteoarthritis GI Medical History: GERD History: No Pertinent History Psycho-Social History: No Pertinent History Male Reproductive Disorders: No Pertinent History Other Medical History: NOTED ABOVE; ALSO GERD. PSH: CARDIAC CATH W/ STENTS, CHOLECYSTECTOMY, BILATERAL MENISCUS SX, PARATHYROID REMOVAL - Past Surgical History Past Surgical History: Yes Neuro Surgical History: No Pertinent History Cardiac: CABG, Cardiac Catheterization, Cardiac Stent Respiratory: No Pertinent History Gastrointestinal: Cholecystectomy Genitourinary: No Pertinent History Musculoskeletal: No Pertinent History Male Surgical History: No Pertinent History Other Surgical History: bilat meniscus surgery, parathyroid removed - Social History Smoking Status: Former smoker Exposure to second hand smoke: Yes Drug Use: none Patient Lives Alone: No Significant Family History: heart disease - Nursing Vital Signs Nursing Vital Signs: Initial Vital Signs Pulse Rate 62 04/05/23 09:19 Blood Pressure 121/83 04/05/23 09:19 O2 Sat by Pulse Oximetry 94 L 04/05/23 09:19 Pain Scale Pain Intensity [] 7 Pain Intensity 4 - Physical Exam General Appearance: no apparent distress, alert Eye Exam: PERRL/EOMI, eyes nml inspection Ears, Nose, Throat Exam: normal ENT inspection, TMs normal, pharynx normal, moist mucous membranes Neck Exam: normal inspection, non-tender, supple, full range of motion Respiratory Exam: normal breath sounds, lungs clear, No respiratory distress Cardiovascular Exam: regular rate/rhythm, normal heart sounds, normal peripheral pulses Gastrointestinal/Abdomen Exam: soft, normal bowel sounds, other (No pulsatile abdominal masses.), No tenderness, No mass Back Exam: normal inspection, normal range of motion, other (Tenderness to palpation lumbar spine. Overlying soft tissue intact. No signs of trauma), No CVA tenderness, No vertebral tenderness Extremity Exam: normal inspection, normal range of motion, pelvis stable, other (Distal pulses equal bilaterally.) Neurologic Exam: alert, 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, cooperative, normal mood/affect, sensation nml, No motor deficits Skin Exam: normal color, warm, dry, No rash Lymphatic Exam: No adenopathy SpO2 Interpretation: normal SpO2: 96 O2 Delivery: Room Air - Course Nursing assessment & vital signs reviewed: Yes - CT Exams Lumbar Spine CT Interpretation: Tele-radiologist Report (Chronic changes, levoscoliosis, degenerative disc disease, vascular calcifications, osteopenia) Ordered Tests: Active Orders 24 hr Category Date Time Status LUMBAR SPINE W/O [CT] Stat Exams 04/05/23 09:41 Completed Medication Summary Discontinued Medications Generic Name Dose Route Start Last Admin Trade Name Petersonq PRN Reason Stop Dose Admin Dexamethasone Sodium Phosphate 10 mg 04/05/23 10:03 04/05/23 10:29 Dexamethasone Sod Phosphate 10 Mg/Ml IM 04/05/23 10:04 10 mg STAT ONE Administration Dexamethasone Sodium Phosphate Confirm 04/05/23 10:19 Dexamethasone Sod Phosphate 10 Mg/Ml Administered 04/05/23 10:20 Dose 10 mg .ROUTE .STK-MED ONE Ketorolac Tromethamine 60 mg 04/05/23 10:04 04/05/23 10:29 Ketorolac Tromethamine 30 Mg/Ml Inj IM 04/05/23 10:05 60 mg STAT ONE Administration Ketorolac Tromethamine Confirm 04/05/23 10:19 Ketorolac Tromethamine 30 Mg/Ml Inj Administered 04/05/23 10:20 Dose 60 mg [facility] - Progress Progress: improved Progress Note: Patient is a 68-year-old male presents to our ED with acute on chronic back pain. Patient describes sciatica pain rating down his right leg. Positive SLR. No trauma. No fever. Pain to palpation lumbar spine. Test ordered include CT lumbar spine which reveals chronic findings including levoscoliosis degenerative disc disease ostial coby. Vascular calcifications. MRI is recommended. This recommendation was forwarded to patient. Patient understands that the radiologist advises a MRI of the lumbar spine to further evaluate the etiology of patient's current symptomology. Patient states is ready for discharge. He voices no other complaints or concerns at this time. Patient disclaimer Complexity of problems addressed is moderate acute complicated No critical care time Complex of data reviewed and analyzed is moderate. Test ordered. Test reviewed and analyzed. Clinical correlation made between findings and history and physical examination. Risk complication and a risk morbidity/mortality patient management is moderate. Patient received Decadron, Toradol. Patient reassessed. Pain improved but not completely resolved. However it takes some time for Decadron to fully work. Patient states he is ready for discharge. A prescription for Toradol forwarded to patient's pharmacy. Patient understands importance of following with his primary care doctor. He understands that radiologist advises MRI for further evaluation of lumbar spine. Patient will discuss this need with his primary care doctor. Vital stable. Time spent to discharge patient approximately 15 minutes. Plan of care established for shared decision making. No social determinants of health present to impede follow-up. Family at bedside. They voiced no other complaints or concerns at this time. Portions of this note were created with voice recognition technology. There may be grammatical, spelling, punctuation or sound alike errors 04/05/23 12:19 Counseled pt/family regarding: diagnosis, need for follow-up, rad results - Departure Departure Disposition: Home Clinical Impression: Sciatica, Levoscoliosis of lumbar spine, Osteopenia, Degenerative disc disease, Vascular calcification, Acute exacerbation of chronic low back pain Condition: Stable Critical Care Time: No Referrals: MACY PADILLA MD [Primary Care Provider] - Follow up/PCP as directed Additional Instructions: Discharge/Care Plan BUDDYMOHINIOSORIOKAROLINA CARRASCO was seen on 04/05/23 in the Emergency Room. The patient was counseled regarding Diagnosis,Lab results, Imaging studies, need for follow up and when to return to the Emergency Room. Prescriptions given: Discharge Note I have spoken with the patient and/or caregivers. I have explained the patient's condition, diagnosis and treatment plan based on the information available to me at this time. I have answered the patient's and/or caregiver's questions and addressed any concerns. The patient and/or caregivers have as good understanding of the patient's diagnosis, condition and treatment plan as can be expected at this point. The vital signs have been stable. The patient's condition is stable and appropriate for discharge from the emergency department. The patient will pursue further outpatient evaluation with the primary care physician or other designated or consulting physician as outlined in the discharge instructions. The patient and/or caregivers are agreeable to this plan of care and follow-up instructions have been explained in detail. The patient and/or caregivers have received these instruction. The patient/and or caregivers are aware that any significant change in condition or worsening of symptoms should prompt an immediate return to this or the closest emergency department or call 911. Prescriptions: Ketorolac Trometh 10 mg Tab [TORAdol 10 MG TABLET] 10 mg PO TID 5 Days #15 tablet
[2023-04-05] MEDS ORDERED: TORAdol 30 mg Injection ONE (10:19)
[2023-04-05] MEDS ORDERED: DECADRON 10MG INJ. ONE (10:19)
--- NOTE | 2023-04-05 11:48 | XRAY ---
CLINICAL HISTORY:pain COMPARISON:None. TECHNIQUE:un-enhanced CT scan of lumbar spine done. Axial images were obtained with reformatted coronal and sagittal images and submitted for interpretation. FINDINGS: Mild scoliosis of the lumbar spine with convexity towards left side. No definite fractures could be detected. Generalized reduced bone density. Degenerative changes are seen with marginal osteophytes and facet joint degenerative hypertrophy seen at multiple levels. Reduced intervertebral disc space seen at L5-S1 level. Normal vertebral body height and alignment. Left-sided L4/5 facet joint vacuum phenomenon. Multilevel disc degenerative changes seen causing ventral thecal sac indentation with neural foraminal narrowing. At the L4-L5 level narrowing of bony spinal canal was noted. Vascular calcification seen. Few tiny calcific foci seen in the spleen likely benign. IMPRESSION: 1. Mild scoliosis of the lumbar spine with convexity towards left side. 2. Osteopenia. 3. Moderate lumbar spondylosis. 4. At L4-5 level narrowing of bony spinal canal was noted. 5. Multilevel disc degenerative changes seen causing ventral thecal sac indentation with neural foraminal narrowing., would recommend MRI lumbosacral spine. Electronically Signed by: Elsie Toledo MD. (04/05/2023 10:47:15 RECYCLING ATTENDANT)
[2023-04-05 12:10] VITALS: BP 113/78; PULSE 71
[2023-04-05 12:16] VITALS: O2SAT 96
== END 2023-04-05 12:26 | disposition home or self-care (01) ==
LOC: ED 09:21
DX: M54.31 Sciatica, right side (principal); M41.9 Scoliosis, unspecified; M85.80 Other specified disorders of bone density and structure, unspecified site; M51.36 Other intervertebral disc degeneration, lumbar region; I70.90 Unspecified atherosclerosis; G89.29 Other chronic pain; M54.50 Low back pain, unspecified; E78.5 Hyperlipidemia, unspecified; I10 Essential (primary) hypertension; Z79.02 Long term (current) use of antithrombotics/antiplatelets; Z79.85 Long-term (current) use of injectable non-insulin antidiabetic drugs; Z79.899 Other long term (current) drug therapy
CPT/HCPCS: 72131; 96372; 99283; J1100; J1885